=== PATIENT | female | born 1950 | race Caucasian/White ===

== ENCOUNTER 2017-12-04 07:39 | Day surgery (SDC) | payer OTHER ==
[~2017-12-04 07:39] MED LIST: ACET325 PO; ACET325S PO; ACET500 PO; AMOCLA875 PO; ARIP10; ARIP10 PO; ARIP15 PO; ARIP20 PO; ASPI325; ASPI81EC PO; BENZ.5; BENZ.5 PO; BENZ1 PO; Bactrim Ds Tab1 EACH PO; CALCA500CH PO; CEPH500 PO; CIPR500 PO; CLON.2 PO; CLON.5; CLON.5 PO; CLON1; CLON1 PO; CODACE30 PO; CONEST.625 PO; CYCL10 PO; DIPH50 PO; DULO30; DULO60; DULO60 PO; EFFEXOR 150 MG QD; ESCI10; ESCI10 PO; ESTMEDA; FERR325 PO; FERSU300; FLUD.1; GABA300 PO; GLIM2; HIBICLENS120 ML TOP; HYDACE5 PO; HYDPAM50; HYDR1TAB94 PO; IBUP200 PO; IBUP600 PO; IBUP800 PO; Keflex500 MG PO; LEVOTHYROXINE 25 MCG; LEVSOD125 PO; LEVSOD137 PO; LEVSOD150 PO; LEVSOD25; LEVSOD25 PO; LEVSOD50; LEVSOD50 PO; LEVSOD75; LEVSOD75 PO; LEVSOD88 PO; LIDOCAINE1 EACH TOP; LIOT25; LIOT25 PO; LORA10 PO; LORA10ER PO; LOXA10; LOXA10 PO; MECL25 PO; MEDR2.5; MEDR2.5 PO; MELO7.5 PO; METF500; METF500 PO; METF500C PO; MOM PO; MULVITMINE; MULVITMINE PO; MUPI2TO TOP; N-ACETYL-L-CYS600 MG PO; NAPR250 PO; NAPR500; NAPR500 PO; NAPR500EC PO; Naproxen250 MG PO; OFLO.3OPSO BOTHEYES; OLAN5 PO; OMEP20ER PO; OMEP40CA12 PO; OXCA300; OXYACE5C; PALI3TAB; PANT40 PO; PHENA200 PO; PIOG15; PRAZ1 PO; PRAZ2 PO; PRAZ5; PRAZ5 PO; PRED1SU BOTHEYES; PREN-16 PO; PRENZ PO; PROM25 PO; PROP30DR BOTHEYES; PROZOSIN; QUET100; QUET200; QUET200 PO; QUET25 PO; QUET300; QUET300 PO; SERT100 PO; SERT50 PO; SULTRIDS PO; Seroquel Xr300 MG PO; Seroquel Xr400 MG PO; TEMA15 PO; TOPI100; TOPI100 PO; TRAZ100 PO; TRAZ50 PO; VENL150ER; VENL150ER PO; VENL75; VENL75ER; VENL75ER PO; VICODIN 5-3001 EACH PO; ZIPR80; Zanaflex4 M1 PO; [UNRECOGNIZED DRUG - OTHER] PO
== END 2017-12-04 22:44 | disposition home or self-care (01) ==
LOC: MOI MAM 07:39
PROC: BH40ZZZ Ultrasonography of Right Breast (ICD-10-PCS; principal; 2017-12-04)
DX: N63.14 Unspecified lump in the right breast, lower inner quadrant (principal); R92.8 Other abnormal and inconclusive findings on diagnostic imaging of breast
CPT/HCPCS: 19285; 77065; G0279

== ENCOUNTER 2017-12-05 05:43 | Day surgery (SDC) | payer OTHER ==
[~2017-12-05] VITALS: Ht 160 cm; Wt 90.3 kg
[2017-12-12 13:28] LABS: Performing Lab SYMBIODX; Test Name TISSUE BLOCK
[2017-12-18 11:06] LABS: Result SEE PATHOTH RESULTS
== END 2017-12-05 10:10 | disposition home or self-care (01) ==
LOC: ORSCMMR 05:43 → ORD 07:30 → ORSCMMR 10:10
PROVIDERS: Surgery
PROC: 0HBT0ZX Excision of Right Breast, Open Approach, Diagnostic (ICD-10-PCS; principal; 2017-12-05 07:30)
DX: C50.311 Malignant neoplasm of lower-inner quadrant of right female breast (principal); Z17.0 Estrogen receptor positive status [ER+]; Z87.891 Personal history of nicotine dependence; E66.01 Morbid (severe) obesity due to excess calories; Z68.35 Body mass index [BMI] 35.0-35.9, adult; E03.9 Hypothyroidism, unspecified; F31.9 Bipolar disorder, unspecified; Z79.899 Other long term (current) drug therapy; Z79.82 Long term (current) use of aspirin; M48.10 Ankylosing hyperostosis [Forestier], site unspecified; F43.10 Post-traumatic stress disorder, unspecified
CPT/HCPCS: 76098; 88307; 88342; 88360; 88363; 88374; J0690; J2250; J2405; J3010; J7120

== ENCOUNTER 2018-12-29 07:30 | Inpatient (IN) | payer OTHER ==
[~2018-12-29] VITALS: Ht 162.6 cm; Wt 98.4 kg
[~2018-12-29 07:30] MED LIST changes: +ANASTROZOLE5 GM PO; +LIDOCAINE5 GM TOP; +PRENATAL PLUS1 EACH PO
--- NOTE | 2018-12-29 09:43 | NUR ---
Ambulatory in Day Surgery History, Chart, Medications and Allergies reviewed before start of procedure.Zayra Paws warming gown applied. Surgical site prepped with 2% Chlorhexidine cloth wipe. History, Chart, Medications and Allergies reviewed before start of procedure.Lungs clear T/O to Auscultation. Patient confirms NPO status and agrees with scheduled surgery. Patient reports completing Chlorhexadine shower X2 prior to admission to hospital. 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 NARES, THROAT, RECTUM, ARMPIT.
--- NOTE | 2018-12-29 16:08 | NUR ---
"PHYSICIAN EXECUTIVE | THIS RN ASSUMED CARE FROM LORNA RN GAVE REPORT TO STEPH CANADA RN. VSS. A/O. DENIES PAIN AND NAUSEA. NO ISSUES IN PACU. SITE REMAINS C/D/I. PATIENT TRANSFERRED ON 2L NC."
--- NOTE | 2018-12-29 17:27 | NUR ---
Permission to access Patient gave this student nurse permission to access chart.
--- NOTE | 2018-12-29 17:42 | NUR ---
SHIFT SUMMARY PT A&OX4, VSS, S/P L TSA, AQUACEL CDI, IMMOBILIZER ON, WIGGLES FINGERS. DENIES PAIN. N&V TX W/ZOFRAN AND REGLAN. FULL LIQ DIET ORDERED FOR PT DENTURES ARE AT HOME. AMB W/1 MOD ASSIST TO BRP AND CHAIR. VOIDING WELL. CAREGIVER MEJIA AT BEDSIDE. WILL CTM & TX PER EMAR UNTIL REPORT GIVEN TO ONCOMING NOC RN.
[2018-12-30 05:36] LABS: BASOPHILS ABSOLUTE AUTO 0.01 K/mm3 (0.00-0.23); BASOPHILS PERCENT AUTO 0 % (0-2); EOSINOPHILS PERCENT AUTO 0 % (0-6); Hematocrit 33.4 % (33.0-51.0); Hemoglobin 10.8 g/dL (11.5-16.0); IMMATURE GRAN ABSOLUTE AUTO 0.06 K/mm3 (0.00-0.10); IMMATURE GRAN PERCENT AUTO 0 % (0-1); LYMPHOCYTES ABSOLUTE AUTO 0.73 K/mm3 (0.84-5.20); LYMPHOCYTES PERCENT AUTO 5 % (21-46); MONOCYTES ABSOLUTE AUTO 0.81 K/mm3 (0.16-1.47); MONOCYTES PERCENT AUTO 5 % (4-13); Mean Corpuscular HGB 29.1 pg (26.0-34.0); Mean Corpuscular HGB Conc 32.3 g/dL (31.5-36.5); Mean Corpuscular Volume 90 fL (80-100); Mean Platelet Volume 10.2 fL (9.1-12.4); NEUTROPHILS ABSOLUTE AUTO 13.81 K/mm3 (1.96-9.15); NEUTROPHILS PERCENT AUTO 90 % (41-73); Platelet Count 187 K/mm3 (150-400); RDW Coefficient Variation 14.8 % (11.7-14.2); RDW Standard Deviation 48.7 fL (35.1-46.3); Red Blood Cell Count 3.71 M/mm3 (3.80-5.20); White Blood Cell Count 15.42 K/mm3 (4.00-11.30)
[2018-12-30 06:02] LABS: Anion Gap 8 mmol/L (6-16); Blood Urea Nitrogen 23 mg/dL (8-24); Bun/Creatinine Ratio 24.1 (12.0-20.0); CO2, Blood 25 mmol/L (21-32); Calcium, Blood 8.2 mg/dL (8.5-10.1); Chloride, Blood 110 mmol/L (98-108); Creatinine, Blood 0.95 mg/dL (0.40-1.00); Glomerular Filtration Rate >60 (60-); Glucose, Blood 127 mg/dL (70-99); Magnesium, Blood 2.1 mg/dL (1.6-2.4); Potassium, Blood 4.5 mmol/L (3.5-5.5); Sodium, Blood 143 mmol/L (136-145)
--- NOTE | 2018-12-30 07:18 | NUR ---
SUMMARY PT HAS DONE WELL THROUGH THE NIGHT. PAIN MANAGED WITH TYLENOL. PT IS TOLERATING PO INTAKE. VOIDING WNL. DRSG REMAINS C/D/I. SLING IN PLACE. PT HAS NOT SLEPT WELL AND IS ANXIOUS ABOUT BEING IN A DIFFERENT PLACE BUT STATES SHE IS COMFORTABLE. CALL LIGHT IN REACH, PT CALLS FOR ASSISTANCE APPROPRIATLEY. REPORT GIVEN TO DAY RN.
[2018-12-30] MEDS ORDERED: OXYC5 PO (11:02)
--- NOTE | 2018-12-30 13:04 | NUR ---
SHIFT SUMMARY PT A&OX4, VSS, LEFT FLOOR VIA WC WITH LOSS PREVENTION ANALYST TO GO HOME WITH CAREGIVER, WITH ALL PERSONAL POSSESSIONS, DISCHARGE PACKET, 2 AQUACEL DRESSINGS, 1 NARC SCRIPT. DISCHARGE INSTRUCTIONS PROVIDED. PT AND CAREGIVER REPORTED UNDERSTANDING THOSE INSTRUCTIONS INCLUDING DRESSING CHANGES, FU APPT WITH SURGEON, OK TO SHOWER/NO TUB/JACUZZI, PAIN MED MANAGEMENT.
== END 2018-12-30 13:00 | disposition home or self-care (01) | DRG 483 ==
LOC: SURS 07:41 → PRE IP 10:30 → SURS 13:05
PROVIDERS: ADMIT Orthopaedic Surgery
PROC: 0RRK0JZ Replacement of Left Shoulder Joint with Synthetic Substitute, Open Approach (ICD-10-PCS; principal; 2018-12-29 10:30)
DX: M19.012 Primary osteoarthritis, left shoulder (principal); Z88.8 Allergy status to other drugs, medicaments and biological substances
CPT/HCPCS: 36415; 73030; 80048; 83735; 85025; 87081; 87086; 88300; 97110; 97116; 97162; 97165; 97535; C1713; C1776; J0171; J0690; J0735; J1100; J1885; J2405; J2550; J2765; J2795; J3010; J7120

== ENCOUNTER 2019-03-21 18:39 | Emergency (ER) | payer OTHER ==
[~2019-03-21] VITALS: Ht 160 cm; Wt 90.7 kg
[~2019-03-21 18:39] MED LIST changes: +OXYC5 PO
== END 2019-03-21 21:56 | disposition home or self-care (01) ==
LOC: ER 18:39
DX: H72.91 Unspecified perforation of tympanic membrane, right ear (principal); Z88.8 Allergy status to other drugs, medicaments and biological substances; Z79.899 Other long term (current) drug therapy; Z79.82 Long term (current) use of aspirin; E11.9 Type 2 diabetes mellitus without complications; I10 Essential (primary) hypertension; Z87.891 Personal history of nicotine dependence
CPT/HCPCS: 70450; 99283-25

== ENCOUNTER 2019-04-07 15:43 | Observation (INO) | payer OTHER ==
[~2019-04-07] VITALS: Ht 167.6 cm; Wt 95.2 kg
[~2019-04-07 15:43] MED LIST changes: +ANASTROZOLE PO; -ANASTROZOLE5 GM PO; +Aspirin EC81 MG PO; +GABA400 PO; -N-ACETYL-L-CYS600 MG PO; +NAC600 MG PO; +Prenatal Vitam1 EAC2 PO
[2019-04-07 17:01] LABS: Source, Urine Clean Catch
[2019-04-07 17:13] LABS: Appearance, Urine Clear (Clear); Bilirubin, Urine Neg (Neg); Blood, Urine 4+ (Neg); Color, Urine Yellow (P-Yellow); Glucose Qualitative, Urine Neg (Neg); Ketones, Urine Neg (Neg); Leukocyte Esterase, Urine 1+ (Neg); Nitrite, Urine Neg (Neg); Protein, Urine Neg (Neg); Specific Gravity, Urine 1.015 (1.003-1.022); Urobilinogen, Urine NORM (Normal)
[2019-04-07 17:26] LABS: Bacteria Mod /hpf; Red Blood Cells, Urine 0-2 /hpf (0-2); Squamous Epithelial Cells Rare /hpf (Few); White Blood Cells, Urine 0-2 /hpf (0-5)
[2019-04-07 18:07] LABS: U Amphetamine Screen Not Detected; U Barbituate Screen Not Detected; U Benzodiazapine Screen Not Detected; U Buprenorphine Screen Not Detected; U Cannabinoids Screen Not Detected; U Cocaine Screen Not Detected; U Methadone Screen Not Detected; U Methamphetamine Screen Not Detected; U Opiates Screen Not Detected; U Oxycodone Screen Not Detected; U Phencyclidine Screen Not Detected; U Propoxyphene Screen Not Detected
[2019-04-07 18:37] LABS: BASOPHILS ABSOLUTE AUTO 0.05 K/mm3 (0.00-0.23); BASOPHILS PERCENT AUTO 1 % (0-2); EOSINOPHILS ABSOLUTE AUTO 0.05 K/mm3 (0.00-0.68); EOSINOPHILS PERCENT AUTO 1 % (0-6); Hematocrit 39.8 % (33.0-51.0); Hemoglobin 12.5 g/dL (11.5-16.0); IMMATURE GRAN ABSOLUTE AUTO 0.03 K/mm3 (0.00-0.10); IMMATURE GRAN PERCENT AUTO 0 % (0-1); LYMPHOCYTES ABSOLUTE AUTO 1.43 K/mm3 (0.84-5.20); LYMPHOCYTES PERCENT AUTO 18 % (21-46); MONOCYTES ABSOLUTE AUTO 0.44 K/mm3 (0.16-1.47); MONOCYTES PERCENT AUTO 5 % (4-13); Mean Corpuscular HGB Conc 31.4 g/dL (31.5-36.5); Mean Corpuscular Volume 89 fL (80-100); Mean Platelet Volume 10.1 fL (9.1-12.4); NEUTROPHILS ABSOLUTE AUTO 6.19 K/mm3 (1.96-9.15); NEUTROPHILS PERCENT AUTO 76 % (41-73); Platelet Count 209 K/mm3 (150-400); RDW Coefficient Variation 13.9 % (11.7-14.2); RDW Standard Deviation 45.1 fL (35.1-46.3); Red Blood Cell Count 4.46 M/mm3 (3.80-5.20); White Blood Cell Count 8.19 K/mm3 (4.00-11.30)
[2019-04-07 19:00] LABS: Alanine Aminotransfer (ALT/SGP 24 U/L (12-78); Albumin/Globulin Ratio 1.1 (0.8-1.8); Alk Phos 133 U/L (50-136); Anion Gap 6 mmol/L (6-16); Aspartate Aminotrans (AST/SGOT 19 U/L (12-37); Bilirubin, Total 0.3 mg/dL (0.1-1.0); Blood Urea Nitrogen 22 mg/dL (8-24); Bun/Creatinine Ratio 22.5 (12.0-20.0); CO2, Blood 26 mmol/L (21-32); Chloride, Blood 108 mmol/L (98-108); Creatinine, Blood 0.98 mg/dL (0.40-1.00); Globulin, Blood 3.7 g/dL (2.2-4.0); Glomerular Filtration Rate >60 (60-); Glucose, Blood 103 mg/dL (70-99); Potassium, Blood 3.8 mmol/L (3.5-5.5); Salicylate <1.7 mg/dL (2.8-20.0); Sodium, Blood 140 mmol/L (136-145); Total Protein, Blood 7.7 g/dL (6.4-8.2)
[2019-04-07 19:02] LABS: Acetaminophen, Random <2.0 ug/mL (10.0-30.0)
--- NOTE | 2019-04-08 19:45 | NUR ---
ADMIT NOTE. PT ARRIVED TO ROOM AT ABOUT 1815. VITAL SIGNS MEASURED, STABLE. PT STATES THAT SHE IS ANXIOUS. ADMIT PROCESS COULD NOT BE COMPLETED DUE TO PT POOR HISTORIAN. SHE STATES THAT WE NEED TO CALL HER CAREGIVER WITH QUESTIONS. ROOM ASSESSED AND SAFE FOR SI PATIENT. [place] BERNAL VERIFIED MONIOR BEING TURNED ON. PT SITTING UP TO CHAIR. REPORT GIVEN TO HARBOR MASTER NURSE WHO WILL ASSUME CARE AT THIS TIME
--- NOTE | 2019-04-09 04:35 | NUR ---
SHIFT SUMMARY PT TO JUST PRIOR TO START OF BREAKFAST SUPERVISOR; AWAKE AND SITTING IN A CHAIR AT , DURING SHIFT REPORT. PT ADMITTED FOR SI ON 2 MD HOLD. PT HAS BEEN VERY PLEASANT AND CO-OP. REQUESTED SHOWER AT START OF SHIFT, BEFORE SHE WOULD GET INTO BED. DEVELOPMENTALLY DELAYED AND MORBIDLY OBESE WITH C/O PAIN IN R KNEE. REQUESTED BLINDS BE KEPT CLOSED D/T FEAR OF HEIGHTS AND BEING ON THE 3RD FLOOR. CAREGIVER NOTIFIED TO ASSIST WITH ADMISSION DATA, PT VERBALIZED AUTHORIZATION AND SIGNED CONSENT. PT C/O PAIN TO R KNEE EARLY INTO SHIFT; MEDICATED PER EMAR. ALSO C/O NOT BEING ABLE TO SLEEP, EVEN AFTER HS MEDICATION GIVEN. PT SLEPT FOR A WHILE AND THEN SAT UP IN CHAIR A WHILE WITH TV ON. PT PRESENTLY IN BED, RESTING QUIETLY. CALLS FOR ASSIST TO BTHRM. WAITING FOR INPATIENT PSYCH PLACEMENT. WILL MONITOR.
[2019-04-09 06:18] LABS: BASOPHILS ABSOLUTE AUTO 0.04 K/mm3 (0.00-0.23); BASOPHILS PERCENT AUTO 1 % (0-2); EOSINOPHILS ABSOLUTE AUTO 0.14 K/mm3 (0.00-0.68); EOSINOPHILS PERCENT AUTO 2 % (0-6); Hematocrit 38.8 % (33.0-51.0); Hemoglobin 12.3 g/dL (11.5-16.0); IMMATURE GRAN ABSOLUTE AUTO 0.03 K/mm3 (0.00-0.10); IMMATURE GRAN PERCENT AUTO 1 % (0-1); LYMPHOCYTES ABSOLUTE AUTO 1.66 K/mm3 (0.84-5.20); LYMPHOCYTES PERCENT AUTO 27 % (21-46); MONOCYTES ABSOLUTE AUTO 0.51 K/mm3 (0.16-1.47); MONOCYTES PERCENT AUTO 8 % (4-13); Mean Corpuscular HGB 28.2 pg (26.0-34.0); Mean Corpuscular HGB Conc 31.7 g/dL (31.5-36.5); Mean Corpuscular Volume 89 fL (80-100); Mean Platelet Volume 10.5 fL (9.1-12.4); NEUTROPHILS ABSOLUTE AUTO 3.88 K/mm3 (1.96-9.15); NEUTROPHILS PERCENT AUTO 62 % (41-73); Platelet Count 199 K/mm3 (150-400); RDW Coefficient Variation 13.9 % (11.7-14.2); RDW Standard Deviation 45.5 fL (35.1-46.3); Red Blood Cell Count 4.36 M/mm3 (3.80-5.20); White Blood Cell Count 6.26 K/mm3 (4.00-11.30)
--- NOTE | 2019-04-09 18:55 | NUR ---
NO ACUTE CHANGES NOTED THIS SHIFT. PT HAS BEEL PLEASANT AND COOPERATIVE, POSSIBLE DISCHARGE TOMORROW TO INPATIENT PSYCH FACILITY. WILL CONTINUE TO MONITOR AND REPORT TO ONCOMING RN.
--- NOTE | 2019-04-10 04:09 | NUR ---
Shift summary: Pt sleep most of night but awoke at three saying she had just had a bad nightmare. pt up to void x 2 during night. pt just needs standby assist. Pt next door was upsetting her but was ok after that pt left. Oxycodone gives adequate pain relief for right knee pain. NO s/s suicidal ideations but pt is depressed.
[2019-04-10 05:29] LABS: BASOPHILS ABSOLUTE AUTO 0.03 K/mm3 (0.00-0.23); BASOPHILS PERCENT AUTO 1 % (0-2); EOSINOPHILS ABSOLUTE AUTO 0.11 K/mm3 (0.00-0.68); EOSINOPHILS PERCENT AUTO 3 % (0-6); Hematocrit 37.5 % (33.0-51.0); Hemoglobin 11.8 g/dL (11.5-16.0); IMMATURE GRAN ABSOLUTE AUTO 0.01 K/mm3 (0.00-0.10); IMMATURE GRAN PERCENT AUTO 0 % (0-1); LYMPHOCYTES ABSOLUTE AUTO 1.46 K/mm3 (0.84-5.20); LYMPHOCYTES PERCENT AUTO 34 % (21-46); MONOCYTES ABSOLUTE AUTO 0.34 K/mm3 (0.16-1.47); MONOCYTES PERCENT AUTO 8 % (4-13); Mean Corpuscular HGB 28.5 pg (26.0-34.0); Mean Corpuscular HGB Conc 31.5 g/dL (31.5-36.5); Mean Corpuscular Volume 91 fL (80-100); Mean Platelet Volume 10.2 fL (9.1-12.4); NEUTROPHILS ABSOLUTE AUTO 2.37 K/mm3 (1.96-9.15); NEUTROPHILS PERCENT AUTO 55 % (41-73); Platelet Count 178 K/mm3 (150-400); RDW Coefficient Variation 13.8 % (11.7-14.2); RDW Standard Deviation 45.8 fL (35.1-46.3); Red Blood Cell Count 4.14 M/mm3 (3.80-5.20); White Blood Cell Count 4.32 K/mm3 (4.00-11.30)
[2019-04-10 05:51] LABS: Bun/Creatinine Ratio 19.7 (12.0-20.0); Calcium, Blood 8.7 mg/dL (8.5-10.1); Creatinine, Blood 1.22 mg/dL (0.40-1.00); Potassium, Blood 3.8 mmol/L (3.5-5.5)
--- NOTE | 2019-04-10 15:39 | NUR ---
spoke with regi wayne and patient will be using secure transport to [facility] for inpatient psych facility. patient is aware and willing. she does note that she is nervous but willing to go. she has been pleasant today but notes that she doesn't know how she will feel in a few hours. secure transport is set up for 1600. patients iv is removed. awaiting call from [place] with nurse for nurse to nurse report.
--- NOTE | 2019-04-10 16:22 | NUR ---
CALLED [facility] TO GIVE NURSE TO NURSE REPORT. I WAS POLITELY TOLD THAT THERE WOULD BE A NURSE CALLING TO GET REPORT AT THEIR CONVENIENCE. I HAVE EXPRESSED THAT I LEAVE IN THE 1900 HOUR AND WAS LET KNOW THAT THEY WOULD CALL SOON POSSIBLE. WILL CALL ONE MORE TIME IN THE 1700 HOUR TO EXPLAIN THAT I WOULD LIKE TO GIVE MY NURSE TO NURSE REPORT. AT THAT POINT I WILL CONTINUE TO DOCUMENT.
--- NOTE | 2019-04-10 18:23 | NUR ---
SPOKE WITH PATRICIA ARZOLA AT [facility]. GAVE NURSE TO NURSE REPORT NO ACUTE COCNERNS AT THIS TIME. ALL REPORT GIVEN AND MEDICATION LIST AND TIMES FAXED TO THE NURSES OVER AT [facility].
== END 2019-04-10 16:04 ==
LOC: ER 15:43 → EOR 15:44 → ER 15:44 → EOR 15:44 → MEDS 15:46 → ER 04-08 15:44 → MEDS 04-08 18:00
PROVIDERS: Family Medicine; Physician Assistant; ADMIT Emergency Medicine
DX: F33.2 Major depressive disorder, recurrent severe without psychotic features (principal); N39.0 Urinary tract infection, site not specified; F20.9 Schizophrenia, unspecified; E03.9 Hypothyroidism, unspecified; I10 Essential (primary) hypertension; M17.0 Bilateral primary osteoarthritis of knee; M19.012 Primary osteoarthritis, left shoulder; M19.011 Primary osteoarthritis, right shoulder; E66.9 Obesity, unspecified; Z87.891 Personal history of nicotine dependence; Z88.8 Allergy status to other drugs, medicaments and biological substances; Z79.899 Other long term (current) drug therapy; Z79.82 Long term (current) use of aspirin; Z86.19 Personal history of other infectious and parasitic diseases; Z85.3 Personal history of malignant neoplasm of breast; Z68.33 Body mass index [BMI] 33.0-33.9, adult
CPT/HCPCS: 36415; 73560-RT; 80048; 80053; 81001; 84443; 85025; 87077; 87081; 87086; 87186; 99285-25; G0378; G0480; J1650; Q0163; Q3014

== ENCOUNTER → 2020-12-06 | Outpatient (CLI) | payer OTHER ==
[2020-12-06 15:22] LABS: Source, Urine Clean Catch
[2020-12-06 16:14] LABS: Appearance, Urine Clear (Clear); Bilirubin, Urine Neg (Neg); Blood, Urine 2+ (Neg); Color, Urine Yellow (P-Yellow); Glucose Qualitative, Urine Neg (Neg); Ketones, Urine Neg (Neg); Leukocyte Esterase, Urine Neg (Neg); Nitrite, Urine Neg (Neg); Protein, Urine Neg (Neg); Specific Gravity, Urine 1.005 (1.003-1.022); Urobilinogen, Urine NORM (Normal); pH, Urine 6.5 (5.0-8.0)
[2020-12-06 16:32] LABS: Bacteria Rare /hpf; Squamous Epithelial Cells Few /hpf (Few)
== END | disposition home or self-care (01) ==
LOC: LAB 15:15 → LAB SHORT 15:15
PROVIDERS: Nurse Practitioner Family
DX: R31.29 Other microscopic hematuria (principal)
CPT/HCPCS: 81001

== ENCOUNTER 2021-12-08 14:21 | Inpatient (IN) | payer OTHER ==
[~2021-12-08] VITALS: Ht 167.6 cm; Wt 99.5 kg
[~2021-12-08 14:21] MED LIST changes: -ANASTROZOLE PO; -GABA400 PO; -LEVSOD150 PO; -Seroquel Xr300 MG PO; -Zanaflex4 M1 PO
[2021-12-08 16:18] LABS: BASOPHILS ABSOLUTE AUTO 0.01 K/mm3 (0.00-0.23); BASOPHILS PERCENT AUTO 0 % (0-2); EOSINOPHILS PERCENT AUTO 0 % (0-6); Hematocrit 38.6 % (33.0-51.0); Hemoglobin 12.5 g/dL (11.5-16.0); IMMATURE GRAN ABSOLUTE AUTO 0.05 K/mm3 (0.00-0.10); IMMATURE GRAN PERCENT AUTO 1 % (0-1); LYMPHOCYTES PERCENT AUTO 10 % (21-46); MONOCYTES ABSOLUTE AUTO 0.38 K/mm3 (0.16-1.47); MONOCYTES PERCENT AUTO 5 % (4-13); Mean Corpuscular HGB Conc 32.4 g/dL (31.5-36.5); Mean Corpuscular Volume 90 fL (80-100); Mean Platelet Volume 10.1 fL (9.1-12.4); NEUTROPHILS ABSOLUTE AUTO 5.97 K/mm3 (1.96-9.15); NEUTROPHILS PERCENT AUTO 84 % (41-73); Platelet Count 170 K/mm3 (150-400); RDW Coefficient Variation 14.6 % (11.7-14.2); RDW Standard Deviation 48.4 fL (35.1-46.3); Red Blood Cell Count 4.31 M/mm3 (3.80-5.20); White Blood Cell Count 7.11 K/mm3 (4.00-11.30)
[2021-12-08 16:32] LABS: Alanine Aminotransfer (ALT/SGP 214 U/L (12-78); Albumin, Blood 3.4 g/dL (3.4-5.0); Albumin/Globulin Ratio 0.9 (0.8-1.8); Alk Phos 130 U/L (50-136); Anion Gap 4 mmol/L (6-16); Aspartate Aminotrans (AST/SGOT 259 U/L (12-37); Bilirubin, Total 0.3 mg/dL (0.1-1.0); Blood Urea Nitrogen 43 mg/dL (8-24); Bun/Creatinine Ratio 24.4 (12.0-20.0); CO2, Blood 22 mmol/L (21-32); Calcium, Blood 8.4 mg/dL (8.5-10.1); Chloride, Blood 110 mmol/L (98-108); Creatinine, Blood 1.76 mg/dL (0.40-1.00); Globulin, Blood 3.9 g/dL (2.2-4.0); Glomerular Filtration Rate 29 (60-); Glucose, Blood 128 mg/dL (70-99); Potassium, Blood 4.7 mmol/L (3.5-5.5); Sodium, Blood 136 mmol/L (136-145); Total Protein, Blood 7.3 g/dL (6.4-8.2); Troponin I <0.015 ng/mL (0.000-0.040)
[2021-12-08] MEDS ORDERED: VITAMIN D3-ALO1 EACH PO (16:35)
[2021-12-08] MEDS ORDERED: ASCO500 PO (16:35)
[2021-12-08] MEDS ORDERED: ACET325 PO (16:36)
[2021-12-08 18:52] LABS: PCO2 Arterial 23.8 mmHg (35-45); pH Blood Arterial 7.48 (7.35-7.45)
[2021-12-09] MEDS ORDERED: VITAMIN D31000 UNI1 PO (01:10)
[2021-12-09] MEDS ORDERED: Calcium Carbon500 MG PO (01:11)
--- NOTE | 2021-12-09 01:28 | NUR ---
ASSUMED CARE OF PT AT 2143 AN ADMIT FROM THE ED. ROMINA (CAREGIVER, PROXY) AT BEDSIDE. REPORTS NO PAIN, CP/PRESSURE. A/OX2-3 BUT DEFICITS SEEM TO BE FROM DROWSINESS ACCORDING TO CAREGIVER. MAINTAINS ABOVE 92% ON 9L NC, HOWEVER DESATS TO LOW 80'S WITH ACTIVITY AND REQUIRES 14L TO RECOVER. RECOVERS WITHIN 3 MINUTES AND ABLE TO BE TITRATED BACK TO 9L. LS DIM T/O. REDDENED AREA UNDER LEFT PANUS IN INGUINAL AREA. WILL UPDATE CHANGES OCCUR.
[2021-12-09 03:49] LABS: BASOPHILS ABSOLUTE AUTO 0.01 K/mm3 (0.00-0.23); BASOPHILS PERCENT AUTO 0 % (0-2); EOSINOPHILS PERCENT AUTO 0 % (0-6); Hematocrit 35.1 % (33.0-51.0); Hemoglobin 11.4 g/dL (11.5-16.0); IMMATURE GRAN ABSOLUTE AUTO 0.06 K/mm3 (0.00-0.10); IMMATURE GRAN PERCENT AUTO 1 % (0-1); LYMPHOCYTES PERCENT AUTO 6 % (21-46); MONOCYTES ABSOLUTE AUTO 0.27 K/mm3 (0.16-1.47); MONOCYTES PERCENT AUTO 4 % (4-13); Mean Corpuscular HGB 28.9 pg (26.0-34.0); Mean Corpuscular HGB Conc 32.5 g/dL (31.5-36.5); Mean Corpuscular Volume 89 fL (80-100); Mean Platelet Volume 10.1 fL (9.1-12.4); NEUTROPHILS ABSOLUTE AUTO 6.56 K/mm3 (1.96-9.15); NEUTROPHILS PERCENT AUTO 90 % (41-73); Platelet Count 160 K/mm3 (150-400); RDW Coefficient Variation 14.5 % (11.7-14.2); Red Blood Cell Count 3.95 M/mm3 (3.80-5.20)
[2021-12-09 04:05] LABS: Bun/Creatinine Ratio 31.1 (12.0-20.0); Calcium, Blood 8.3 mg/dL (8.5-10.1); Creatinine, Blood 1.19 mg/dL (0.40-1.00); Potassium, Blood 4.8 mmol/L (3.5-5.5)
--- NOTE | 2021-12-09 22:56 | NUR ---
ASSUMED CARE OF PATIENT AT 1900. REPORTS NO PAIN, CP/PRESSURE. DOES HAVE SOB WITH COUGHING EPISODES. NONPRODUCTIVE. ALERT TO SELF, KNOWS THE NAME OF HER FOOT DOCTOR AND DEANNA'S GIRLFRIEND (JUAN). ACCORDING TO CAREGIVER, THIS IS A MORE ACCURATE WAY OF TELLING HER A/O STATUS PATIENT IS DISCOURAGED FROM WATCHING THE NEWS ETC... I FEEL SHE IS A BIT MORE CONFUSED TODAY THAN LAST NIGHT. PUPILS R4 L2 SLUGGISH. OTHER NEUROS INTACT. MAINTAINS ABOVE 92% ON 12L NC. LS DIM T/O. NONPRODUCTIVE COUGH. SR ON TELE 80'S. BLE 1+ PITTING EDEMA. WILL UPDATE CHANGES OCCUR.
[2021-12-10 03:11] LABS: Source, Urine Catheter
[2021-12-10 03:15] LABS: Bilirubin, Urine Neg (Neg); Blood, Urine 4+ (Neg); Glucose Qualitative, Urine Neg (Neg); Ketones, Urine Neg (Neg); Leukocyte Esterase, Urine Neg (Neg); Nitrite, Urine Neg (Neg); Protein, Urine 3+ (Neg); Urobilinogen, Urine NORM (Normal)
[2021-12-10 03:23] LABS: Amorphous Light (0-Heavy); Appearance, Urine Hazy (Clear); Bacteria Many /hpf; Color, Urine Yellow (P-Yellow); Red Blood Cells, Urine 0-2 /hpf (0-2); Squamous Epithelial Cells Not Seen /hpf (Few); White Blood Cells, Urine 0-2 /hpf (0-5)
[2021-12-10 04:30] LABS: BASOPHILS ABSOLUTE AUTO 0.01 K/mm3 (0.00-0.23); BASOPHILS PERCENT AUTO 0 % (0-2); EOSINOPHILS PERCENT AUTO 0 % (0-6); Hematocrit 36.4 % (33.0-51.0); Hemoglobin 11.8 g/dL (11.5-16.0); IMMATURE GRAN ABSOLUTE AUTO 0.09 K/mm3 (0.00-0.10); IMMATURE GRAN PERCENT AUTO 1 % (0-1); LYMPHOCYTES ABSOLUTE AUTO 0.63 K/mm3 (0.84-5.20); LYMPHOCYTES PERCENT AUTO 9 % (21-46); MONOCYTES ABSOLUTE AUTO 0.38 K/mm3 (0.16-1.47); MONOCYTES PERCENT AUTO 6 % (4-13); Mean Corpuscular HGB 28.7 pg (26.0-34.0); Mean Corpuscular HGB Conc 32.4 g/dL (31.5-36.5); Mean Corpuscular Volume 89 fL (80-100); Mean Platelet Volume 9.7 fL (9.1-12.4); NEUTROPHILS ABSOLUTE AUTO 5.67 K/mm3 (1.96-9.15); NEUTROPHILS PERCENT AUTO 84 % (41-73); Platelet Count 201 K/mm3 (150-400); RDW Coefficient Variation 14.6 % (11.7-14.2); RDW Standard Deviation 46.9 fL (35.1-46.3); Red Blood Cell Count 4.11 M/mm3 (3.80-5.20); White Blood Cell Count 6.78 K/mm3 (4.00-11.30)
[2021-12-10 04:46] LABS: Alanine Aminotransfer (ALT/SGP 151 U/L (12-78); Albumin, Blood 2.6 g/dL (3.4-5.0); Albumin/Globulin Ratio 0.7 (0.8-1.8); Alk Phos 122 U/L (50-136); Anion Gap 6 mmol/L (6-16); Aspartate Aminotrans (AST/SGOT 161 U/L (12-37); Bilirubin, Total 0.4 mg/dL (0.1-1.0); Blood Urea Nitrogen 36 mg/dL (8-24); Bun/Creatinine Ratio 40.9 (12.0-20.0); CO2, Blood 21 mmol/L (21-32); Calcium, Blood 8.9 mg/dL (8.5-10.1); Chloride, Blood 118 mmol/L (98-108); Creatinine, Blood 0.88 mg/dL (0.40-1.00); Globulin, Blood 3.9 g/dL (2.2-4.0); Glomerular Filtration Rate >60 (60-); Glucose, Blood 188 mg/dL (70-99); Potassium, Blood 4.6 mmol/L (3.5-5.5); Sodium, Blood 145 mmol/L (136-145); Total Protein, Blood 6.5 g/dL (6.4-8.2)
[2021-12-10 12:28] LABS: Influenza A, PCR NEGATIVE (NEGATIVE); Influenza B, PCR NEGATIVE (NEGATIVE); Resp Syncytial Virus, PCR NEGATIVE (NEGATIVE)
[2021-12-10 12:30] LABS: SARS-Cov-2 (COVID-19) PCR, MMC POSITIVE (NEGATIVE)
--- NOTE | 2021-12-10 22:25 | NUR ---
ASSUMED CARE OF PATIENT AT 1900. REPORTS NO PAIN, CP/PRESSURE. NONPRODUCTIVE COUGH. ALERT TO SELF, DOES NOT KNOW THE NAME OF HER FOOT DOCTOR OR DEANNA'S GIRLFRIEND (JUAN) ANYMORE, WHICH IS NEW FROM PREVIOUS NOC SHIFT. PUPILS R4 SLUG L2 GREGOR. OTHER NEUROS INTACT. MAINTAINS ABOVE 89% ON 55L AND 85% AIRVO. LS DIM T/O. NONPRODUCTIVE COUGH. SR ON TELE 70'S. BLE 1+ PITTING EDEMA. AMOR DRAINING TO GRAVITY ODOROUS DARK YELLOW URINE. WILL UPDATE CHANGES OCCUR.
[2021-12-11 12:21] LABS: Source, Urine Foley catheter
[2021-12-11 12:34] LABS: Appearance, Urine Hazy (Clear); Bilirubin, Urine Neg (Neg); Blood, Urine 4+ (Neg); Color, Urine Yellow (P-Yellow); Glucose Qualitative, Urine Neg (Neg); Ketones, Urine Neg (Neg); Leukocyte Esterase, Urine 2+ (Neg); Nitrite, Urine Pos (Neg); Protein, Urine 3+ (Neg); Specific Gravity, Urine 1.015 (1.003-1.022); Urobilinogen, Urine NORM (Normal)
[2021-12-11 12:54] LABS: Squamous Epithelial Cells Few /hpf (Few)
[2021-12-11 12:55] LABS: Amorphous Light (0-Heavy); Bacteria Many /hpf; Mucus Light (0-Heavy); WBC Cast 0-2 /lpf (0)
--- NOTE | 2021-12-11 14:04 | NUR ---
PATIENT ALERT TO SELF. ABLE TO TELL ME NAME, BIRTHDATE, WHERE SHE IS, WHERE SHE LIVES AND CAREGIVERS NAME. ABLE TO MOVE ALL EXTREMITIES. DENIES NUMBNESS/TINGLING. RIGHT PUPILS SLUGGISH COMPARED TO LEFT. TELE SHOWING SINUS RHYTHM WITH HR 80'S. DENIES CHEST PAIN/PRESSURE. VITAL SIGNS STABLE. ON AIRVO AT 60L AND 75%. LUNGS SOUNDING CLEAR AND DIM. OCCASIONAL DRY COUGH, PRN COUGH MEDICATION. DESATING WITH ACTIVITY AND EATING. LAYING ON SIDES SWITCHING FROM LEFT TO RIGHT EVERY 2 HOURS. DENIES ABDOMINAL PAIN/NAUSEA. AMOR CATH IN PLACE DRAINING CLEAR/YELLOW URINE TO GRAVITY. NEW URINE SAMPLE OBTAINED. DR. CUNHA NOTIFIED OF URINE RESULTS WELL +BLOOD CULTURE. NEW ORDER FOR OMNICEF ANTIBOTIC. SPOKE WITH CAREGIVER ROMINA ON PHONE AND PROVIDED UPDATE. PATIENT STATES SHE IS NOT HUNGRY. EATING 2-3 BITES FOR LUNCH, BUT DRINKING FLUIDS. SLEEPING ON AND OFF. DENIES OVERALL PAIN. CALL LIGHT IN REACH. ACHS BLOOD SUGARS. WILL CONTINUE TO MONITOR.
--- NOTE | 2021-12-11 18:15 | NUR ---
SHIFT SUMMARY: NEURO REMAINS UNCHANGED. ON AIRVO AT 60L AND 75% SATING LOW-MID 90'S. DESATS WITH MOVEMENT. TELE REMAINS UNCHANGED SINUS RHYTHM. BP STABLE. LOW APPETITE. EATING VERY SMALL AMOUNTS. DRINKING FLUIDS. DENIES ABDOMINAL PAIN/NAUSEA. AMOR CATH REMAINS IN PLACE DRAINING URINE. UP IN RECLINER AT THIS TIME. 1 PERSON ASSIST. DENIES NEEDS AT THIS TIME. CALL LIGHT IN REACH. WILL CONTINUE TO MONITOR AND REPORT OFF.
--- NOTE | 2021-12-12 05:54 | NUR ---
NEEDLE POLISHER SUMMARY PT IS AXO 2-3 AND FOLLOWS DIRECTIONS. PT MAINTAINED O2 SATS >90% ON AIRVO 55L AND 60% FIO2 FOR MOST OF THE SHIFT. PT WAS UNWILLING TO PRONE THIS SHIFT BUT DID SLEEP ON HER SIDES AND TURNED THROUGHOUT THE SHIFT. PT HAS DRY HACKING COUGH. TREATED PER EMAR. PT DENYING ANY PAIN OR NAUSEA THIS SHIFT. PT SLEPT COMFORTABLY FOR MOST OF THE SHIFT. WILL REPORT TO ONCOMING RN.
--- NOTE | 2021-12-12 08:00 | NUR ---
Initial assessment: Patient is resting with eyes closed resp e/u, easily awakens with verbal stimuli. She is oriented to self and location only. She denies pain at this time. HRR, SR in the 80s. LS Dim t/o. Biox 88% on 50l fio2 65%, FIO2 increased to 70%, oxygen saturations increased to 90%. BT+. PPP, trace edema to BLE. Patient denies other needs at this time. Call light in reach, am meds given at this time. Will continue to monitor.
--- NOTE | 2021-12-12 12:00 | NUR ---
Update: VSS. Patients assessment unchnaged. Patient has still been requiring high flow oxygen 55l at 74% FIO2. She denies needs at this time. Call light in reach, will continue to monitor.
--- NOTE | 2021-12-12 16:00 | NUR ---
Update: Patient is OOB to the chair. Her caregiver was here earlier and has been given an update. VSS. Patient denies other needs at this time. Call light in reach, will continue to monitor.
--- NOTE | 2021-12-12 18:40 | NUR ---
Update: Patient is admitted with COVID pneumonia. She has been oriented to self only t/o the day. She has been a little bit forgetful today and pulling her oxygen out of her nose, camera turned back on because her saturations drop down into the 70s. She has been on the AIRVO 55L between 60-70% oxygen saturations 87-93. She has an occasional cough. She was able to get OOB to the recliner today and stay up for about 4 hours. Patient is currrently back in bed. She denies other needs at this time. Call light in reach. Will report to NOC shift RN.
--- NOTE | 2021-12-12 22:23 | NUR ---
CARE ASSUMPTION PT LYING IN BED OCCASIONALLY READJUSTING HER NC CAUSING HER O2 SATS TO DROP INTO THE 70'S. PT EDUCATED ON THE IMPORTANCE OF NOT MESSING W HER NC SO THE IT DOES NOT FALL OUT. O2 SATS >90% O AIRVO 60L W 80% FIO2. RT CONSULTED ABOUT THE POSSIBLE NEED FOR A BIPAP IN THE PT'S ROOM DUE TO INCREASING O2 NEEDS AND DESSATING WHEN SHE MESSES WITH HER NC. VSS AND AFEBRILE. PT ASSISTED ONTO HER R SIDE AND IS SLEEPING COMFORTABLEY W CALL LIGHT WITHIN REACH.
--- NOTE | 2021-12-13 01:45 | NUR ---
update pt unable to maintain 02 sats >88% on 60l w 90% fio2 so she was placed on cpap by rt.
--- NOTE | 2021-12-13 06:01 | NUR ---
RIGGING HELPER SUMMARY PT IS AXO TO SELF AND PLACE. PT FOLLOWS DIRECTION BUT DOES NOT USE HER CALL LIGHT TO MAKE HER NEEDS KNOWN. PT WAS UNABLE TO MAINTAIN O2 SATS >88% ON AIRVO DESPITE MULTIPLE ATTEMPTS TO REPOSION ON HER SIDES SHE IS UNABLE TO PRONE SO SHE WAS PLACED ON CPAP OF 10 W AN FIO2 OF 80%. O2 SATS >90% ON CPAP. BP WNL AND STABLE. PT AFEBRILE THIS SHIFT. PT SLEPT COMFORTABLY FOR MOST OF THE SHIFT. WILL REPORT ONCOMING RN.
--- NOTE | 2021-12-13 08:30 | NUR ---
Initial assessment: Patient is awake and sitting up in the chair. She is alert and oriented to self only. She denies pain at this time. HRR, SR in the 80s per telemetry. She is taking a break from the C-Pap currently, oxygen saturations are in the low 80s high 70s on high flow NC 70L 100%. Patient was placed back in the Bi-Pap at 10cm H2O and FIO2 70%, oxygen saturations slowly increased to mid 90s. FIO2 titrated down 65%-patient was able to maintain saturations in the low 90s. BT+. PPP. VSS. Call light in reach, will continue to monitor.
[2021-12-13 09:30] LABS: Hematocrit 38.7 % (33.0-51.0); Hemoglobin 12.4 g/dL (11.5-16.0)
[2021-12-13 09:51] LABS: Anion Gap 8 mmol/L (6-16); Blood Urea Nitrogen 28 mg/dL (8-24); CO2, Blood 24 mmol/L (21-32); Calcium, Blood 8.4 mg/dL (8.5-10.1); Chloride, Blood 115 mmol/L (98-108); Glomerular Filtration Rate >60 (60-); Glucose, Blood 155 mg/dL (70-99); Sodium, Blood 147 mmol/L (136-145)
--- NOTE | 2021-12-13 10:30 | NUR ---
Update: Patient was assisted back to bed from the chair after using the BSC. She was given another break from the c-pap, she was able to tolerate being off the c-pap for about 30 min before her saturations dropped into the high 70s. am meds given at this time. C-pap is back on FIO2 initially at 100% to assist the patient in recovering, after about 5 min this RN was able to titrate her FIO2 back down to 65% with saturations in the low 90s. I discussed code status with patient, in the event that she declines further patient stated she did not want to be intubated. I recieved a call from the patients manager intensive care unit, she was provided an update. I asked if she had a POA or knew who the decision maker was for patient she stated, "she has always made her own decisions." I talked with her about patients wishes regarding intubation. Caregiver verbalized understanding. Patient is resting comfortably at this time. Call light in reach. Will continue to monitor.
[2021-12-13 13:55] LABS: Albumin, Blood 2.6 g/dL (3.4-5.0); Albumin/Globulin Ratio 0.7 (0.8-1.8); Bilirubin, Direct 0.3 mg/dL (0.0-0.3); Bilirubin, Indirect 0.3 mg/dL (0.1-0.7); Bilirubin, Total 0.6 mg/dL (0.1-1.0); Globulin, Blood 3.5 g/dL (2.2-4.0); Total Protein, Blood 6.1 g/dL (6.4-8.2)
--- NOTE | 2021-12-13 15:00 | NUR ---
Update: Patient has remained on C-Pap. She is now able to take a break for about 30 min. VSS. Oral care done. Patient was able to drink a little bit of her glucerna. Patient back on C-Pap at 100% FIO2 oxygen saturations in the mid 90s, will attempt tp titrate her back down if able. Call light in reach. Will continue to monitor. I discussed patient with palliative care, they will meet with patient and caregiver to discuss code status.
--- NOTE | 2021-12-13 18:35 | NUR ---
Summary: Patient is here with COVID pneumonia. Patient has been on the C-Pap for the majority of the day, with a few breaks on high flow NC. Her Bi-pap settings at the start of the shift were 10 cm h2o and 65% FIO2, they gradually increased to 10 cm H20 and 100% FIO2. She is requring 70L and 100% FI02 when off the bi-pap, her breaks are lasting about 30 min before her oxygen saturations sustain in the low 80s. She has been able to turn from side to side and she was OOB this AM. I talked with the patient regarding her wishes should she continue to decline and possibly require intubation, she said she does not want to be intubated. Per her caregiver Aleida the patient has always been her own decision maker. Palliative care consulted for code status clarification. The patient is resting on her right side currently on the C-Pap 02 96%. Will report to oncoming RN.
--- NOTE | 2021-12-13 22:02 | NUR ---
ASSUMED CARE OF PT AT 1900 REPORTS NO PAIN, CP/PRESSURE. A/OX1 (SELF), KNOWS SHE'S IN [place] BUT DOESN'T KNOW WHAT KIND OF FACILITY. PUPILS UNEQUAL R4 L2. LS RHONCHI LOBES, DIM LOWER. ON CPAP 10/100% AND SATTING AT 95%, BUT DECREASES TO 80'S WITH ANY ACTIVITY. SR ON TELE 80'S. VSS. REDDENED AREA UNDER LEFT PANUS IN INGUINAL AREA. PATIENT IS AWAITING BEING MOVED TO ICU FOR CLOSER OBSERVATION. PT REMAINS FULL CODE AT THIS TIME. WILL UPDATE CHANGES OCCUR.
--- NOTE | 2021-12-14 02:12 | NUR ---
CARE ASSUMTPION PT ARRIVED TO ICU 6 AND WAS TRANSFERED TO ICU BED BY STAFF. O2 SATS REMAINED >90% ON CPAP 11 W 90% FIO2. PT PLACED ON HER SIDE W EXTRA PILLOWS FOR COMFORT. PT DECLINING ANY FURTHER NEEDS AT THIS TIME. VSS AND TELE SHOWING SR IN THE 60'S.
--- NOTE | 2021-12-14 06:29 | NUR ---
CHURCH OFFICIAL SUMMARY PT IS AXO X2-3, FOLLOWS DIRECTIONS BUT DOES NOT USE HER CALL LIGHT TO MAKE HER NEEDS KNOWN. PT UNWILLING TO PRONE HOWEVER, SHE IS WILLING TO LIE ON HER SIDES SO THE PT ASSISTED ON TURNING FROM SIDE TO SIDE Q2H WHICH IMPROVED HER O2 SATS SO SHE WAS TITRATED FROM 90% FIO2 TO 75% FIO2. PT HAS MAINTAINED O2 SATS >92% ON CPAP 11 W 75% FIO2 FOR MOST OF THE SHIFT. AMOR CATHETER PATENT AND DRAINING 450ML CLEAR YELLOW URINE THIS SHIFT. PT DENYING ANY PAIN OR NAUSEA THIS SHIFT BUT DOES STILL STRUGGLE W DRY HACKING COUGH WHICH CAUSES HER O2 SATS TO DROP, COUGH MEDICINE GIVEN PER EMAR. VSS AND PT AFEBRILE. WILL REPORT TO ONCOMING RN.
--- NOTE | 2021-12-14 07:05 | NUR ---
ASSUME CARE: I have assumed care of pt. At this time she is resting quietly in bed with CPAP in place; FiO2 75%, CPAP 11.
--- NOTE | 2021-12-14 17:55 | NUR ---
SHIFT SUMMARY: FiO2 at 75% all day. Pt able to take PO medications and PO fluids, but was unable to eat. When CPAP is removed pt desats down to the 60's, even with Airvo in place. She has been able to assist with q2 hr turns. Caregiver at bedside this afternoon and states that pt makes her own medical decisions. No BM today althought pt reports the urge to stool; stool softeners started.
--- NOTE | 2021-12-14 20:00 | NUR ---
ASSUMED CARE RECEIVED REPORT FROM DARIUSZ URIARTE AT 1900. PT IS ALERT AND ORIENTED X3, PLEASANT AND COOPERATIVE. SHE IS ABLE TO EXPRESS HER NEEDS WELL, BUT DIFFICULT UNDERSTANDING D/T CPAP. SHE HAS DEVELOPMENTAL DELAY AT BASELINE. SHE IS WEARING CPAP AT 11, FIO2 75%, SPO2 88-94%. SHE QUICKLY DESATS INTO 70'S WHEN CPAP OFF TO TAKE MEDS OR FOR A DRINK, RECOVERS FAIRLY WELL. LUNGS SOUND CLEAR AND DIMINISHED, SHE HAS A DRY, HACKING COUGH. HR IS SR IN 60-70'S. BP STABLE. BOWEL TONES ACTIVE X4. AMOR PATENT, DRAINING TO GRAVITY, YELLOW CLEAR URINE. SHE IS ABLE TO MOVE INDEPENDENTLY IN BED TO MAKE SMALL CHANGES TO POSITION FOR COMFORT, ASSISTS WITH BIG TURNS. ORDERS REVIEWED AND WILL TREAT PRESCRIBED.
[2021-12-15 04:21] LABS: Hematocrit 34.8 % (33.0-51.0); Hemoglobin 11.3 g/dL (11.5-16.0); Mean Corpuscular HGB 28.9 pg (26.0-34.0); Mean Corpuscular HGB Conc 32.5 g/dL (31.5-36.5); Mean Corpuscular Volume 89 fL (80-100); Mean Platelet Volume 9.7 fL (9.1-12.4); Platelet Count 277 K/mm3 (150-400); RDW Standard Deviation 45.7 fL (35.1-46.3); Red Blood Cell Count 3.91 M/mm3 (3.80-5.20); White Blood Cell Count 10.55 K/mm3 (4.00-11.30)
[2021-12-15 04:50] LABS: Anion Gap 5 mmol/L (6-16); Blood Urea Nitrogen 25 mg/dL (8-24); Bun/Creatinine Ratio 30.5 (12.0-20.0); CO2, Blood 28 mmol/L (21-32); Calcium, Blood 8.6 mg/dL (8.5-10.1); Chloride, Blood 109 mmol/L (98-108); Creatinine, Blood 0.82 mg/dL (0.40-1.00); Glomerular Filtration Rate >60 (60-); Glucose, Blood 114 mg/dL (70-99); Potassium, Blood 4.1 mmol/L (3.5-5.5); Sodium, Blood 142 mmol/L (136-145)
--- NOTE | 2021-12-15 05:07 | NUR ---
PT NOTED TO DESAT INTO LOW 80'S D/T COUGHING FIT. FIO2 VIA CPAP INCREASED TO 100%, AND PT SLOWLY RECOVERED INTO LOW 90'S.
--- NOTE | 2021-12-15 06:45 | NUR ---
PT REMAINS CPAP DEPENDENT. QUICKLY DESATS INTO 60-70'S WHEN MASK REMOVED FOR LESS THAN A MINUTE. SHE ALSO HAS A DRY, HACKING COUGH THAT WILL CAUSE HER TO DESAT INTO 80'S WHILE ON CPAP. O2 INCREASED FROM 75 TO 100%, CURRENTLY SATTING IN MID 90'S AND SHE IS RESTING. SHE REMAINS A/OX3, COOPERATIVE AND ABLE TO FOLLOW COMMANDS. AFEBRILE. HR SB TO SR, RATE 50-70'S. BP STABLE. AMOR PATENT, 375ML OUT THIS SHIFT, 300ML PO FLUIDS IN THIS SHIFT D/T DESATTING. MORNING PO MEDS HELD D/T PT STATUS. WILL REPORT TO ONCOMING SHIFT.
--- NOTE | 2021-12-15 12:52 | NUR ---
BIPAP BREAK PT PLACED ON HIFLOW NC 60L, FIO2 100%. PT WITH SPO2 IMMEDIATELY DROPPING TO HIGH 70'S TO LOW 80'S. PT ABLE TO TAKE A FEW SIPS OF WATER AND SUCCESSFULLY SWALLOW PILLS. PT CONTINUED TO HAVE SPO2 MAINTAIN LOW 80'S. PT PLACED BACK ON BIPAP AT THIS TIME 15/11, FIO2 100%. WILL CONTINUE TO MONITOR.
--- NOTE | 2021-12-15 17:13 | NUR ---
SHIFT SUMMARY PT HAS REMAINED AWAKE, ALERT, AND ORIENTED THIS SHIFT. PT IS VERY PLEASANT AND ENGAGED IN CARE. PT REMAINS BIPAP DEPENDENT WITH SETTINGS 15/12, FIO2 100%. PT DESATURATES RAPIDLY WITH ANY BREAKS FROM BIPAP. PT DENIES DISCOMFORT OR SOB AT THIS TIME. VITAL SIGNS STABLE WHEN PT RESTING ON BIPAP. IV AND POWERGLIDE REMAINS SALINE LOCKED. PT WITH AMOR IN PLACE WITH MINIMAL AMOUNT OF DARK YELLOW URINE OUTPUT NOTED THIS SHIFT. PT PRONED FOR SOME TIME THIS SHIFT AND TOLERATED WELL. PT CAREGIVER UPDATED VIA PHONE TODAY. WILL CONTINUE TO MONITOR AND REPORT OFF TO ONCOMING RN.
--- NOTE | 2021-12-15 19:00 | NUR ---
ASSUMED CARE ASSUMED CARE OF PATIENT. AWAKE AND ALERT. ORIENTED TO SELF, PLACE, AND EVENTS. COOPERATIVE WITH CARE. PT IS ABLE TO REPOSITION SELF IN BED. WATCHING TELEVISION. REMAINS ON BIPAP 15/12, BUR 12, FIO2 100%. RR MID-20s. MONITOR SHOWS NSR, RATE 70s. BP STABLE. AMOR PATENT AND DRAINING TO GRAVITY. REMAINS IN ISOLATION FOR COVID. SEE SHIFT ASSESSMENT FOR FULL ASSESSMENT.
--- NOTE | 2021-12-15 20:15 | NUR ---
BIPAP BREAK PT GIVEN SHORT BREAK ON BIPAP AND PLACED ON AIRVO 70L/100% TO TAKE PO MEDS. PT SATS DECREASED TO HIGH 70s AND PT BECAME SOB/DYSPNEIC WITHIN SEVERAL MINUTES. SWALLOWED PILLS WITHOUT DIFFICULTY. PLACED BACK ON BIPAP AND SATS RECOVERED EASILY.
[2021-12-16 03:37] LABS: Source, Urine Foley catheter
[2021-12-16 03:41] LABS: BASOPHILS ABSOLUTE AUTO 0.01 K/mm3 (0.00-0.23); BASOPHILS PERCENT AUTO 0 % (0-2); EOSINOPHILS ABSOLUTE AUTO 0.02 K/mm3 (0.00-0.68); EOSINOPHILS PERCENT AUTO 0 % (0-6); Hematocrit 34.3 % (33.0-51.0); Hemoglobin 11.1 g/dL (11.5-16.0); IMMATURE GRAN ABSOLUTE AUTO 0.13 K/mm3 (0.00-0.10); IMMATURE GRAN PERCENT AUTO 1 % (0-1); LYMPHOCYTES PERCENT AUTO 4 % (21-46); MONOCYTES ABSOLUTE AUTO 0.17 K/mm3 (0.16-1.47); MONOCYTES PERCENT AUTO 1 % (4-13); Mean Corpuscular HGB 28.9 pg (26.0-34.0); Mean Corpuscular HGB Conc 32.4 g/dL (31.5-36.5); Mean Corpuscular Volume 89 fL (80-100); NEUTROPHILS ABSOLUTE AUTO 11.36 K/mm3 (1.96-9.15); NEUTROPHILS PERCENT AUTO 93 % (41-73); Platelet Count 291 K/mm3 (150-400); RDW Coefficient Variation 14.1 % (11.7-14.2); RDW Standard Deviation 45.6 fL (35.1-46.3); Red Blood Cell Count 3.84 M/mm3 (3.80-5.20); White Blood Cell Count 12.19 K/mm3 (4.00-11.30)
[2021-12-16 03:41] LABS: Bilirubin, Urine Neg (Neg); Blood, Urine 3+ (Neg); Glucose Qualitative, Urine Neg (Neg); Ketones, Urine Neg (Neg); Leukocyte Esterase, Urine Neg (Neg); Nitrite, Urine Neg (Neg); Protein, Urine 2+ (Neg); Specific Gravity, Urine 1.025 (1.003-1.022); Urobilinogen, Urine 2+ (Normal)
[2021-12-16 04:01] LABS: Anion Gap 5 mmol/L (6-16); Blood Urea Nitrogen 27 mg/dL (8-24); CO2, Blood 28 mmol/L (21-32); Calcium, Blood 8.3 mg/dL (8.5-10.1); Chloride, Blood 109 mmol/L (98-108); Creatinine, Blood 0.85 mg/dL (0.40-1.00); Glomerular Filtration Rate >60 (60-); Glucose, Blood 114 mg/dL (70-99); Magnesium, Blood 2.6 mg/dL (1.6-2.4); Phosphorus, Blood 3.2 mg/dL (2.5-4.9); Potassium, Blood 4.2 mmol/L (3.5-5.5); Sodium, Blood 142 mmol/L (136-145)
[2021-12-16 04:16] LABS: Color, Urine Yellow (P-Yellow)
[2021-12-16 04:17] LABS: Amorphous Mod (0-Heavy); Appearance, Urine Hazy (Clear); Bacteria Few /hpf; Mucus Light (0-Heavy); Squamous Epithelial Cells Not Seen /hpf (Few); White Blood Cells, Urine Rare /hpf (0-5)
--- NOTE | 2021-12-16 07:00 | NUR ---
SHIFT SUMMARY NO ACUTE CHANGES. REMAINED ON BIPAP 15/12 WITH BUR 12, FIO2 100% T/O NOC. SHORT BREAKS (MINIMUM 2-3MINUTES) WITH AIRVO 70L/100%FIO2- SATS DECREASED TO 70s AND PT BECAME DYSPNEIC/SOB. CONTINUES WITH FREQUENT COUGHING- ROBITUSSIN 10ML GIVEN X 2 DOSES. DENIES C/O PAIN OR DISCOMFORT. C/O FEELING HUNGRY, BUT UNDERSTANDS THAT SHE IS UNABLE TO EAT AT THIS TIME D/T HER RESPIRATORY STATUS. VSS. AFEBRILE. MT PATENT. WILL REPORT TO ONCOMING RN WHEN AVAILABLE.
--- NOTE | 2021-12-16 17:26 | NUR ---
SHIFT SUMMARY NO ACUTE CHANGES THIS SHIFT. PT REMAINS AWAKE, ALERT, AND ORIENTED. PT REMAINS BIPAP/CPAP DEPENDENT. PT DOES NOT TOLERATE BREAKS TO HIFLOW NC. PT CURRENTLY ON CPAP 14, FIO2 90% WITH SPO2 >90% AT REST. POWERGLIDE REMAINS SALINE LOCKED. AMOR REMAINS IN PLACE WITH DARK YELLOW URINE OUTPUT NOTED. PT ABLE TO REPOSITION SELF INDEPENDENTLY AND WITH MINIMAL ASSISTANCE. VITAL SIGNS HAVE REMAINED STABLE. PT MIDLEVEL PROVIDER AT BEDSIDE THIS AFTERNOON FOR SHORT TIME. UPDATED TO PT CONDITION. WILL CONTINUE TO MONITOR AND REPORT OFF TO ONCOMING RN.
--- NOTE | 2021-12-16 19:00 | NUR ---
ASSUMED CARE ASSUMED CARE OF PATIENT. REMAINS ON CPAP 14, FIO2 90%. RR 30s. FREQUENT NON-PRODUCTIVE COUGH NOTED. MONITOR SHOWS NSR, RATE 70s. BP STABLE. AMOR PATENT AND DRAINING YELLOW URINE. SEE SHIFT ASSESSMENT FOR FULL ASSESSMENT.
--- NOTE | 2021-12-16 20:15 | NUR ---
CPAP BREAK/HS MEDS PT GIVEN SHORT BREAK FROM BIPAP AND PLACED ON AIRVO FOR HS MEDS. TOLERATED WELL FOR APPROXIMATELY TWO MINUTES BEFORE SATS DECREASED TO 78-79%. PT ALSO CONTINUES TO HAVE FREQUENT PERIODS OF NON-PRODUCTIVE COUGHING, ALTHOUGH NONE NOTED WITH PO INTAKE. SWALLOWS WITHOUT DIFFICULTY. CPAP BACK ON WITH FIO2 INCREASED TO 100% AFTER MEDS GIVEN.
--- NOTE | 2021-12-16 22:30 | NUR ---
CALL TO MD REGARDING COUGHING PT WITH CONTINUOUS COUGHING DESPITE ORDERED COUGH MEDICINE. SATS DECREASED TO LOW TO MID 80s WITH COUGHING. DR. HERRERA NOTIFIED- NEW ORDER RECEIVED FOR DANDRE MARTINEZ.
--- NOTE | 2021-12-17 01:05 | NUR ---
CALL TO MD PT CONTINUES WITH ALMOST CONTINUOUS COUGHING DESPITE ORDERED COUGH MEDICINE AND LIDOCAINE UPDRAFT. SATS DECREASED TO 81-83% WITH FIO2 100%. DR. HERRERA UPDATED- NEW ORDER RECEIVED FOR PRECEDEX.
[2021-12-17 04:00] LABS: BASOPHILS ABSOLUTE AUTO 0.01 K/mm3 (0.00-0.23); BASOPHILS PERCENT AUTO 0 % (0-2); EOSINOPHILS ABSOLUTE AUTO 0.08 K/mm3 (0.00-0.68); EOSINOPHILS PERCENT AUTO 1 % (0-6); Hematocrit 33.6 % (33.0-51.0); Hemoglobin 10.7 g/dL (11.5-16.0); IMMATURE GRAN ABSOLUTE AUTO 0.09 K/mm3 (0.00-0.10); IMMATURE GRAN PERCENT AUTO 1 % (0-1); LYMPHOCYTES ABSOLUTE AUTO 0.36 K/mm3 (0.84-5.20); LYMPHOCYTES PERCENT AUTO 2 % (21-46); MONOCYTES ABSOLUTE AUTO 0.32 K/mm3 (0.16-1.47); MONOCYTES PERCENT AUTO 2 % (4-13); Mean Corpuscular HGB 28.2 pg (26.0-34.0); Mean Corpuscular HGB Conc 31.8 g/dL (31.5-36.5); Mean Corpuscular Volume 89 fL (80-100); Mean Platelet Volume 10.3 fL (9.1-12.4); NEUTROPHILS ABSOLUTE AUTO 15.84 K/mm3 (1.96-9.15); NEUTROPHILS PERCENT AUTO 95 % (41-73); Platelet Count 308 K/mm3 (150-400); RDW Coefficient Variation 14.1 % (11.7-14.2); RDW Standard Deviation 45.3 fL (35.1-46.3); Red Blood Cell Count 3.79 M/mm3 (3.80-5.20)
[2021-12-17 04:30] LABS: Anion Gap 6 mmol/L (6-16); Blood Urea Nitrogen 30 mg/dL (8-24); Bun/Creatinine Ratio 33.4 (12.0-20.0); CO2, Blood 26 mmol/L (21-32); Calcium, Blood 8.7 mg/dL (8.5-10.1); Chloride, Blood 108 mmol/L (98-108); Glomerular Filtration Rate >60 (60-); Glucose, Blood 122 mg/dL (70-99); Magnesium, Blood 2.3 mg/dL (1.6-2.4); Phosphorus, Blood 2.3 mg/dL (2.5-4.9); Potassium, Blood 3.9 mmol/L (3.5-5.5); Sodium, Blood 140 mmol/L (136-145)
--- NOTE | 2021-12-17 06:08 | NUR ---
SHIFT SUMMARY REMAINED ON CPAP 14 T/O NOC WITH MINIMAL BREAKS OF 1-2 MINUTE DURATION. FIO2 TITRATED BETWEEN 90-100%. NOW AT 100% TO MAINTAIN ADEQUATE SPO2. RR 20s-30s. FREQUENT COUGHING WHEN AWAKE. MEDICATED WITH COUGH MEDICINE PER EMAR WITH MINIMAL RELIEF. PT INCREASINGLY ANXIOUS AND DYSPNEIC WITH COUGHING. PRECEDEX STARTED FOR CPAP TOLERANCE- NOW INFUSING AT 0.6MCG/KG/HR. VSS. AFEBRILE. AMOR PATENT AND DRAINING TO GRAVITY. WILL REPORT TO ONCOMING RN WHEN AVAILABLE.
--- NOTE | 2021-12-17 14:52 | NUR ---
INTUBATION PT CONTINUED ON CPAP 15, FIO2 100% WITH MORE EPISODES OF DESATURATION. DR HERRERA DECIDED TO INTUBATE. PT BOOSTED IN BED. RT AT BEDSIDE. PT SEDATED WITH PROPOFOL GTT INITIATED AT 30 MCG/KG/MIN AT 1400 WITH 50 MG PROPOFOL IV PUSH BY DR HERRERA. 50 MG IV MECHELLE GIVEN AT 1402. 8.0 ETT PLACED AT [address] HERRERA AT 1403. COLOR CHANGE NOTED WITH BILATERAL BREATH SOUNDS. VENT SETTINGS AC 20, TV 350, PEEP 12, FIO2 100%. OGT PLACED, BILE OUTPUT NOTED. VITAL SIGNS STABLE. WILL CONTINUE TO MONITOR.
[2021-12-17 15:15] LABS: PCO2 Arterial 40.5 mmHg (35-45); PO2 Arterial 51.7 mmHg (80-100); pH Blood Arterial 7.42 (7.35-7.45)
--- NOTE | 2021-12-17 17:43 | NUR ---
SHIFT SUMMARY PT REMAINS STABLE ON VENT S/P INTUBATION THIS AFTERNOON. PRIOR TO INTUBATION PT WAS ALERT AND ORIENTED. PT CURRENTLY SEDATED WITH PROPOFOL AT 50 MCG/KG/MIN. VENT SETTINGS AC 20, TV 350, PEEP 12, FIO2 100%. PT WITH COPIOUS AMOUNT OF CLEAR ORAL SECRETIONS. PICC PLACED TO [facility]. K PHOS INFUSING. PT BECAME HYPOTENSIVE THIS AFTERNOON. DR HERRERA NOTIFIED. ORDERS RECIEVED. SBW RESTRAINTS IN PLACE. AMOR REMAINS IN PLACE WITH DARK YELLOW URINE OUTPUT NOTED. OGT IN PLACE. TUBE FEEDINGS STARTED AT 40 ML/HR PER DIETARY. WILL CONTINUE TO MONITOR AND REPORT OFF TO ONCOMING RN.
--- NOTE | 2021-12-17 22:06 | NUR ---
CALLED PLACED TO DR. HERRERA SOON AFTER COMING ON SHIFT. PATIENT O2 SATS WERE HOLDING AT 85-87% ON 100% AND 12 PEEP. RT WAS ALSO IN ROOM ON INITIAL ASSESSMENT AND NOTICED THE CHARTED ETT PLACEMENT DID NOT MATCH WHERE THE TUBE WAS ACTUALLY AT THE TUBE WAS >24 AT THE [facility]. DR. HERRERA ORDERED FOR THE TUBE TO BE PULLED OUT 2 CM AND ALSO TO PRONE/PALAYZE PATIENT. NO ADJUSTMENTS TO VENT SETTINGS AT THIS TIME. PATIENT IS TO BE PRONED FOR 16HRS. PRONED AT 2100. O2 SATS HAVE ALREADY BEEN IMPROVING AND O2 CURRENTLY 95% ON MONITOR
[2021-12-18 03:22] LABS: BASOPHILS ABSOLUTE AUTO 0.02 K/mm3 (0.00-0.23); BASOPHILS PERCENT AUTO 0 % (0-2); EOSINOPHILS ABSOLUTE AUTO 0.02 K/mm3 (0.00-0.68); EOSINOPHILS PERCENT AUTO 0 % (0-6); Hematocrit 32.8 % (33.0-51.0); Hemoglobin 10.5 g/dL (11.5-16.0); IMMATURE GRAN ABSOLUTE AUTO 0.11 K/mm3 (0.00-0.10); IMMATURE GRAN PERCENT AUTO 1 % (0-1); LYMPHOCYTES PERCENT AUTO 2 % (21-46); MONOCYTES PERCENT AUTO 1 % (4-13); Mean Corpuscular HGB 29.1 pg (26.0-34.0); Mean Corpuscular Volume 91 fL (80-100); Mean Platelet Volume 10.1 fL (9.1-12.4); NEUTROPHILS PERCENT AUTO 96 % (41-73); Platelet Count 274 K/mm3 (150-400); RDW Coefficient Variation 14.4 % (11.7-14.2); RDW Standard Deviation 47.9 fL (35.1-46.3); Red Blood Cell Count 3.61 M/mm3 (3.80-5.20); White Blood Cell Count 17.55 K/mm3 (4.00-11.30)
[2021-12-18 03:40] LABS: Alanine Aminotransfer (ALT/SGP 59 U/L (12-78); Albumin, Blood 1.9 g/dL (3.4-5.0); Albumin/Globulin Ratio 0.4 (0.8-1.8); Alk Phos 87 U/L (50-136); Anion Gap 5 mmol/L (6-16); Aspartate Aminotrans (AST/SGOT 37 U/L (12-37); Bilirubin, Total 0.5 mg/dL (0.1-1.0); Blood Urea Nitrogen 23 mg/dL (8-24); CO2, Blood 27 mmol/L (21-32); Calcium, Blood 8.6 mg/dL (8.5-10.1); Chloride, Blood 107 mmol/L (98-108); Globulin, Blood 4.3 g/dL (2.2-4.0); Glomerular Filtration Rate >60 (60-); Glucose, Blood 195 mg/dL (70-99); Magnesium, Blood 2.4 mg/dL (1.6-2.4); Phosphorus, Blood 3.1 mg/dL (2.5-4.9); Potassium, Blood 4.3 mmol/L (3.5-5.5); Sodium, Blood 139 mmol/L (136-145); Total Protein, Blood 6.2 g/dL (6.4-8.2)
[2021-12-18 04:53] LABS: PCO2 Arterial 56.7 mmHg (35-45); PO2 Arterial 64.8 mmHg (80-100)
--- NOTE | 2021-12-18 06:20 | NUR ---
SHIFT SUMSARTHAK: PATIENT PRONED AT 2100 AND IS TO BE PRONED FOR 16HRS. TOLERATED VENT WELL EVER SINCE BEING PRONED. SHE HAS BEEN BROUGHT DOWN TO 90% FIO2. SEDATED WITH NIMBEX/PROPOFOL. PATIENT TURNED Q2. SPOKE WITH CAREGIVER WELL AND LET HER KNOW ALL OF THE CHANGES SINCE LAST BEING UPDATED AND ANSWERED A LOT OF QUESTIONS.
--- NOTE | 2021-12-18 11:32 | NUR ---
ASSUMED PT CARE DAVEY NIGHT RN. PT CURRENTLY PRONE SINCE 2099. VENT SETTINGS NOTED AND PT ON 70%, NIMBEX AT 1.5, PROP AT 50MCG AND LR GOING AT 100ML/HR. TOF 1/4 ON POWER 10. VITALS WNL, WILL CONTINUE TO MONITOR.
--- NOTE | 2021-12-18 16:24 | NUR ---
PT PLACED SUPINE @1500 WITH ASSISTANCE FROM STAFF. NIMBEX CONT. AND INCREASED TO 2 TOF ON 10 WAS 4/4. WILL CONTINUE TO MONITOR. PT TOLL TURN WELL AND NO ISSUES TO NOT FROM PROCEDURE. DR GRANT ORDERED TO CONTINUIE WITH NIMBEX AND NO FURTHER ORDERS GIVEN.
--- NOTE | 2021-12-18 17:18 | NUR ---
PT RINGS REMOVED X3 AND PLACED IN ZIPLOCK INTO PT BELONGINGS BAG IN ROOM. PROP DOWN TO 30MCG FOR LOW BISS. NIMBEX TO 2 AND TOF AT 10P, 1/4. CURRENT BISS 38 AND PT TOLL VENT SETTINGS WELL ALL OTHER VITALS WNL. WILL CONTINUE TO MONITOR.
--- NOTE | 2021-12-18 18:25 | NUR ---
NIBEX OFF AT [address] GRANT. ALSO, DR GRANT SEES NO NEED TO PRONE TONIGHT. MONITOR
[2021-12-19 04:05] LABS: Bicarbonate Venous 31.3 mmol/L (24.0-30.0); PCO2 Venous 47.2 mmHg (38-42); PO2 Venous 33.6 mmHg (38-42); pH Blood Venous 7.45 (7.34-7.37)
[2021-12-19 04:29] LABS: BASOPHILS ABSOLUTE AUTO 0.01 K/mm3 (0.00-0.23); BASOPHILS PERCENT AUTO 0 % (0-2); EOSINOPHILS ABSOLUTE AUTO 0.15 K/mm3 (0.00-0.68); EOSINOPHILS PERCENT AUTO 1 % (0-6); Hematocrit 30.1 % (33.0-51.0); Hemoglobin 9.4 g/dL (11.5-16.0); IMMATURE GRAN ABSOLUTE AUTO 0.14 K/mm3 (0.00-0.10); IMMATURE GRAN PERCENT AUTO 1 % (0-1); LYMPHOCYTES ABSOLUTE AUTO 0.52 K/mm3 (0.84-5.20); LYMPHOCYTES PERCENT AUTO 4 % (21-46); MONOCYTES ABSOLUTE AUTO 0.17 K/mm3 (0.16-1.47); MONOCYTES PERCENT AUTO 1 % (4-13); Mean Corpuscular HGB 28.5 pg (26.0-34.0); Mean Corpuscular HGB Conc 31.2 g/dL (31.5-36.5); Mean Corpuscular Volume 91 fL (80-100); Mean Platelet Volume 10.6 fL (9.1-12.4); NEUTROPHILS ABSOLUTE AUTO 11.99 K/mm3 (1.96-9.15); NEUTROPHILS PERCENT AUTO 92 % (41-73); Platelet Count 274 K/mm3 (150-400); RDW Coefficient Variation 14.6 % (11.7-14.2); RDW Standard Deviation 49.1 fL (35.1-46.3); White Blood Cell Count 12.98 K/mm3 (4.00-11.30)
[2021-12-19 05:17] LABS: Alanine Aminotransfer (ALT/SGP 59 U/L (12-78); Albumin, Blood 1.7 g/dL (3.4-5.0); Albumin/Globulin Ratio 0.4 (0.8-1.8); Alk Phos 78 U/L (50-136); Anion Gap 4 mmol/L (6-16); Aspartate Aminotrans (AST/SGOT 37 U/L (12-37); Bilirubin, Total 0.4 mg/dL (0.1-1.0); Blood Urea Nitrogen 25 mg/dL (8-24); Bun/Creatinine Ratio 32.2 (12.0-20.0); CO2, Blood 29 mmol/L (21-32); Calcium, Blood 8.7 mg/dL (8.5-10.1); Chloride, Blood 107 mmol/L (98-108); Creatinine, Blood 0.78 mg/dL (0.40-1.00); Globulin, Blood 4.3 g/dL (2.2-4.0); Glomerular Filtration Rate >60 (60-); Glucose, Blood 116 mg/dL (70-99); Potassium, Blood 4.5 mmol/L (3.5-5.5); Sodium, Blood 140 mmol/L (136-145)
--- NOTE | 2021-12-19 05:53 | NUR ---
SHIFT SUMMARY: PATIENT HAS REMAINED SUPINE OVERNIGHT WITH PROPOFOL INFUSING AT 45MCG/KG/MIN. UNABLE TO WEAN SEDATION DOWN DUE TO PATIENT WAKING UP AND COUGHING SO HARSH THAT SHE DESATS INTO LOW 80S. SHE WAS ON 80% FIO2 BUT REQUIRED BEING BUMPED TO 90% AFTER NOT RECOVERING FROM SUCTIONING EARLY IN SHIFT. EVER SINCE, HER O2 HAS REMAINED 90-93%. SHE HAS HAD COPIOUS THICK SECREIONS THAT HAVE SLOWLY THINNED OUT THROUGHOUT THE SHIFT. VSS BUT BP BECOMING MORE LABILE. LEVO HAS NEVER BEEN STARTED BUT AT BEDSIDE. Q2 TURNS WITH NO DESATING. NO BM CHARTED SINCE 12/09. STOOL SOFTENERS GIVEN AND PATIENT PASSING GAS. TUBE FEED ORDER NEEDS CLARIFIED TODAY WE WENT FROM 60ML/HR TO 15ML/HR PER DR. GARCIA HP INFUSING AT 15ML/HR CURRENTLY.
--- NOTE | 2021-12-19 09:37 | NUR ---
DR. GRANT IN ROOM. DR. GRANT PALPATED PATIENT'S STOMACH AND PATIENT WENT IN TO COUGHING FIT. PATIENT DESATTED DOWN INTO 60S. CHARGE NURSE AND THIS RN TO PATIENT ROOM WHEN CALLED BY DR. GRANT. ORDERED TO GIVE 80 MG ROCURONIUM IV NOW. RSI KIT PULLED AND [address] MG MECHELLE GIVEN TO DR. GRANT. DR. GRANT GAVE MECHELLE AND O2 SLOWLY CAME BACK UP TO 90S. PRIMARY NURSE INFORMED.
--- NOTE | 2021-12-19 12:56 | NUR ---
assumed care from radiopharmacist, assessment as stated in chart. pt vent settings remaim unchanged and as noted. will continue to monitor.
--- NOTE | 2021-12-19 12:57 | NUR ---
PT BECAME UNSTABLE AND NOT VENTINLATING WELL WITH SATS IN THE 70S AT APPROX 1100. DR GRANT CALLED TO ROOM. PT PLACED ON NIMBEX AT 2 WITH TOF ON 10 AT 0/4. PT THEN PRONED AT 1130, LEVO STARTED AT 4 FOR MAPS IN THE 50S. FENT ALSO STARTED THERE AFTER. PT TOLLERATED TURN WELL AND IMPROVEMENTS IN SATS AFTER TURN TO 90S. LEVO INCREASED TO 8MCG FOR CONT. LOW BP MAPS IN THE 50S. PT CURRENTLY VENTING WELL, SATS 94, HR 93, BP 103/49, TOF 0/4, BIS 45. WILL CONTINUE TO MONITOR.
--- NOTE | 2021-12-19 18:47 | NUR ---
DR GRANT IN, VENT REDUCED TO 60%FIO2, ALSO ORDERED TO KEEP PT PRONE FOR 24HR. PT DRIPS REMAIN SAME AND PT SETTING AND VITALS ARE HORDING STABLE. WILL CONTINUE TO MONITOR.
[2021-12-20 03:44] LABS: BASOPHILS ABSOLUTE AUTO 0.03 K/mm3 (0.00-0.23); BASOPHILS PERCENT AUTO 0 % (0-2); EOSINOPHILS ABSOLUTE AUTO 0.02 K/mm3 (0.00-0.68); EOSINOPHILS PERCENT AUTO 0 % (0-6); Hematocrit 30.3 % (33.0-51.0); Hemoglobin 9.7 g/dL (11.5-16.0); IMMATURE GRAN ABSOLUTE AUTO 0.22 K/mm3 (0.00-0.10); IMMATURE GRAN PERCENT AUTO 2 % (0-1); LYMPHOCYTES ABSOLUTE AUTO 0.39 K/mm3 (0.84-5.20); LYMPHOCYTES PERCENT AUTO 3 % (21-46); MONOCYTES ABSOLUTE AUTO 0.24 K/mm3 (0.16-1.47); MONOCYTES PERCENT AUTO 2 % (4-13); Mean Corpuscular HGB 28.8 pg (26.0-34.0); Mean Corpuscular Volume 90 fL (80-100); Mean Platelet Volume 10.4 fL (9.1-12.4); NEUTROPHILS PERCENT AUTO 92 % (41-73); Platelet Count 308 K/mm3 (150-400); RDW Coefficient Variation 14.6 % (11.7-14.2); Red Blood Cell Count 3.37 M/mm3 (3.80-5.20)
[2021-12-20 04:01] LABS: Anion Gap 6 mmol/L (6-16); Blood Urea Nitrogen 23 mg/dL (8-24); Bun/Creatinine Ratio 31.7 (12.0-20.0); CO2, Blood 29 mmol/L (21-32); Calcium, Blood 8.3 mg/dL (8.5-10.1); Chloride, Blood 102 mmol/L (98-108); Creatinine, Blood 0.73 mg/dL (0.40-1.00); Glomerular Filtration Rate >60 (60-); Glucose, Blood 222 mg/dL (70-99); Magnesium, Blood 2.1 mg/dL (1.6-2.4); Phosphorus, Blood 2.6 mg/dL (2.5-4.9); Potassium, Blood 3.9 mmol/L (3.5-5.5); Sodium, Blood 137 mmol/L (136-145)
--- NOTE | 2021-12-20 06:23 | NUR ---
SHIFT SUMMARY: PATIENT HAS REMAINED PRONED THE ENTIRE SHIFT AND IS DUE TO BE SUPINED AT 1000. SHE IS SEDATED/PARALZYED WITH PROPOFOL, FENTANYL, AND NIMBEX. VSS AND LEVOPHED DRIP WAS ALSO TITRATED OFF. 500 OUPUT WITH LASIX. NO BM. VENT SETTINGS HAVE BEEN ADJUSTED PER RT DOWN TO 50% FIO2. NO ABG WAS ORDERED THIS SHIFT. LABS WNL
--- NOTE | 2021-12-20 11:19 | NUR ---
PT SUPINE AT THIS TIME. VENT SETTINGS UNCHANGED OTHER THEN O2 @70%. NIMBEX OFF, PROP 45, FENTANYL 50 MCG/HR, LEVO STARTED AT 2. WILL CONTINUE TO MONITOR
--- NOTE | 2021-12-20 16:25 | NUR ---
PT PRONE, LEVO OFF, PROP TO 50MCG, FENTANYL 50MCG/HR, TF TO GOAL OF 20ML/HR. NIMBEX ON TO 2MCG. WILL CONTINUE TO MONITOR.
--- NOTE | 2021-12-20 22:52 | NUR ---
CALL PLACED TO DR. GRANT REGARDING VENT SETTINGS EVERYTHING LOOKED LIKE IT WAS ADJUSTED TODAY BUT THE ORDER WAS NOT CHANGED AND THERE WAS NO NOTE ABOUT ANY VENT CHANGES BEING MADE TODAY OR TOLD IN REPORT. SETTINGS VERIFIED AND SHE IS TO BE VC/AC //50%. SPOKE WITH RT REGARDING THESE ORDERS AND AN RT COMMUNICATION WAS PUT IN
[2021-12-21 03:33] LABS: Hematocrit 32.3 % (33.0-51.0); Hemoglobin 10.5 g/dL (11.5-16.0); Mean Corpuscular HGB 28.6 pg (26.0-34.0); Mean Corpuscular HGB Conc 32.5 g/dL (31.5-36.5); Mean Corpuscular Volume 88 fL (80-100); Mean Platelet Volume 10.2 fL (9.1-12.4); Platelet Count 354 K/mm3 (150-400); RDW Coefficient Variation 14.5 % (11.7-14.2); Red Blood Cell Count 3.67 M/mm3 (3.80-5.20); White Blood Cell Count 10.24 K/mm3 (4.00-11.30)
[2021-12-21 03:56] LABS: Anion Gap 6 mmol/L (6-16); Blood Urea Nitrogen 33 mg/dL (8-24); CO2, Blood 31 mmol/L (21-32); Calcium, Blood 8.4 mg/dL (8.5-10.1); Chloride, Blood 99 mmol/L (98-108); Creatinine, Blood 0.67 mg/dL (0.40-1.00); Glomerular Filtration Rate >60 (60-); Glucose, Blood 152 mg/dL (70-99); Potassium, Blood 3.4 mmol/L (3.5-5.5); Sodium, Blood 136 mmol/L (136-145)
[2021-12-21 04:05] LABS: BAND PERCENT MAN 11 % (0-8); BASOPHILS PERCENT MAN 0 % (0-2); EOSINOPHILS PERCENT MAN 3 % (0-6); LYMPHOCYTES ABSOLUTE MAN 0.51 K/mm3 (0.84-5.20); LYMPHOCYTES PERCENT MAN 5 % (21-46); MONOCYTES PERCENT MAN 3 % (4-13); MYELOCYTE PERCENT MAN 1 % (0-0); NEUTROPHILS ABSOLUTE MAN 9.01 K/mm3 (1.96-9.15); SEG NEUTROPHILS PERCENT MAN 77 % (41-73); TOTAL CELLS COUNTED 100
--- NOTE | 2021-12-21 06:13 | NUR ---
SHIFT SUMMARY: PATIENT HAS REMAINED PRONED. FIO2 INCREASED TO 60% LATE THIS MORNING DUE TO SATS HOLDING 86%. SHE HAS HAD A MODERATE AMT OF SECRETIONS TONIGHT ORALLY AND VIA ETT. SHE WAS SB IN THE 50S COMING ON SHIFT. SEDATION WAS ADJUSTED AND SHE HAS BEEN 60-70S THE REST OF THE SHIFT. BP STABLE AND LEVO HAS REMAINED OFF. SHE IS SEDATED WITH PROPOFOL, FENTANYL POLLUTION CONTROL TECHNICIAN, AND NIMBEX. K 3.4 AMD 40KCL INFUSING. SHE HAS HAD >1L OUT VIA AMOR AND SHE IS RECEIVING LASIX. NO BM TONIGHT. SHE HAS TOLERATED Q2 TURNS
--- NOTE | 2021-12-21 09:06 | NUR ---
ASSUMED CARE OF PATIENT: PARALYZED NIMBEX 1.5, TOF 2/4 POWERL LEVEL OF 3 FACIAL NERVE, NOT RESPONSIVE TO PAIN D/T PARLYZED, MODERATE SECRETIONS, CUFF LEAK RT 1.5 ML INSTILLED W/ RESOLUTION OF CUFF LEAK, PRONED, LUNGS COARSE CRACKLES BASES, BP HTN 150S, SR 80S, +2 PULSES, AMOR DRAINING ADEQUATE UOP, 0 RESIDUALS, TOELRATING TUBE FEEDS, WILL CONTINUE TO MONITOR, PLAN TO SUPINE AT 1000.
--- NOTE | 2021-12-21 11:19 | NUR ---
Spiritual Care visit. Pt. is vented and in an incline position. Pt. is not responsive to any verbal commands. Pastorally prayed with pt.
--- NOTE | 2021-12-21 16:48 | NUR ---
VILMA ORIENTATION D/T SEDATION/PALYTICS, PUPILS 3/2MM RIGHT/LEFT RESPECTIVE PUPILS MD AWARE, NIMBEX CONTINUES 1.5, TOF 3/10 POWER LEVEL FOR 2/4 TITCHES L FACIAL NERVE, PROP DECREASED TO 40 FOR BIZ <40, BIZ NOW 40-60, FENT CONTINUES 50MCG/HR, NSR 60-80S, +2 PULSES, BLE +1 CONTINUES, BP SOFT TO WNL, LUNGS COARSE W/ CRACKLES BASES, ABLE TO TITRATE DOWN TO 50 FIO2, SUPINED 1000, PRONED AGAIN AT 1600, PLAN FOR 24HR IN PRONE POSITION, TF RESIDUALS MINIMAL TOELRATING, ABDOMEN HYPOACTIVE BOWELS, ABG PENDING, CBGS LOW 200 COVERED W/ LISPRO, WILL CONTINUE TO MONITOR AND REPORT TO NIGHT RN.
[2021-12-21 17:15] LABS: PCO2 Arterial 42.4 mmHg (35-45); pH Blood Arterial 7.48 (7.35-7.45)
--- NOTE | 2021-12-21 19:30 | NUR ---
ASSUMED CARE. SEDATED/PARALYZED/INTUBATED. ON FENATNYL, PROPOFOL, NIMBEX, AND LEVO DRIPS. ALL VERIFIED. ASSISTED RT AND CAESAR WITH REPOSITION OF HEAD, AND EXTREMITIES THE PATIENT IS TO REMAIN PRONE. VENT ON 50% FIO2, SATS REMAINED IN THE 90'S. CATH IS PATIENT. SUCTION AND ORAL CARE PROVIDED. WILL CONTINUE TO MONITOR.
[2021-12-22 05:49] LABS: Hematocrit 29.7 % (33.0-51.0); Hemoglobin 9.7 g/dL (11.5-16.0); Mean Corpuscular HGB 28.6 pg (26.0-34.0); Mean Corpuscular HGB Conc 32.7 g/dL (31.5-36.5); Mean Corpuscular Volume 88 fL (80-100); Mean Platelet Volume 11.1 fL (9.1-12.4); Platelet Count 290 K/mm3 (150-400); RDW Coefficient Variation 14.3 % (11.7-14.2); RDW Standard Deviation 45.3 fL (35.1-46.3); Red Blood Cell Count 3.39 M/mm3 (3.80-5.20); White Blood Cell Count 9.32 K/mm3 (4.00-11.30)
--- NOTE | 2021-12-22 06:18 | NUR ---
SHIFT SUMMARY: PATIENT SEDATED/PARALYZED/INTUBATED. HAS BEEN IN THE PRONE POSITION SINCE 1600 YESTERDAY. LUNG SOUNDS CLEAR IN UPPER LOBES, COARSE BASES. VENT ON /. SHE DID DESAT FOR SHORT PERIOD OF TIME WHICH IS WHY SHE WAS INCREASED TO 60% FIO2. PEEP STILL ON . NO CHANGES WERE MADE TO CURRENT DRIPS OF PROPOFOL, FENTANYL RN CLINICAL COORDINATOR, NIMBEX. SUCTIONING RESULTED IN SCANT AMOUNT OF WHITE SECREATIONS. AMOR REMAINED PATIENT WITH A TOTAL OF 1500CC OUTPUT THIS SHIFT. TF CONTINUES AT 20CC/HR, SHE IS TOLERATING WELL, RESIDUALS HAVE BEEN 20CC AT MOST. VS WITH IN NORMAL LIMITS FOR PATIENT. WILL REPORT TO DAYSHIFT.
[2021-12-22 06:24] LABS: BAND PERCENT MAN 16 % (0-8); BASOPHILS PERCENT MAN 0 % (0-2); EOSINOPHILS PERCENT MAN 0 % (0-6); LYMPHOCYTES ABSOLUTE MAN 0.55 K/mm3 (0.84-5.20); LYMPHOCYTES PERCENT MAN 6 % (21-46); METAMYELOCYTE ABSOLUTE MAN 0.09 K/mm3 (0.00-0.00); METAMYELOCYTE PERCENT MAN 1 % (0-0); MONOCYTES PERCENT MAN 0 % (4-13); MYELOCYTE ABSOLUTE MAN 0.18 K/mm3 (0.00-0.00); MYELOCYTE PERCENT MAN 2 % (0-0); NEUTROPHILS ABSOLUTE MAN 8.48 K/mm3 (1.96-9.15); SEG NEUTROPHILS PERCENT MAN 75 % (41-73); TOTAL CELLS COUNTED 100
[2021-12-22 06:29] LABS: Alanine Aminotransfer (ALT/SGP 71 U/L (12-78); Albumin, Blood 1.7 g/dL (3.4-5.0); Albumin/Globulin Ratio 0.4 (0.8-1.8); Alk Phos 73 U/L (50-136); Anion Gap 9 mmol/L (6-16); Aspartate Aminotrans (AST/SGOT 42 U/L (12-37); Bilirubin, Total 0.3 mg/dL (0.1-1.0); Blood Urea Nitrogen 40 mg/dL (8-24); Bun/Creatinine Ratio 65.7 (12.0-20.0); CO2, Blood 29 mmol/L (21-32); Chloride, Blood 100 mmol/L (98-108); Creatinine, Blood 0.61 mg/dL (0.40-1.00); Globulin, Blood 4.1 g/dL (2.2-4.0); Glomerular Filtration Rate >60 (60-); Glucose, Blood 210 mg/dL (70-99); Potassium, Blood 4.7 mmol/L (3.5-5.5); Sodium, Blood 138 mmol/L (136-145); Total Protein, Blood 5.8 g/dL (6.4-8.2)
--- NOTE | 2021-12-22 12:47 | NUR ---
ASSUMED CARE OF PATIENT 0700: PRONED, UNRESPONSIVE ON NIMBEX/DEX, POWER LEVEL 3/10 FOR 2/4 FACIAL TWITCH, SATS WNL ON 60%, LUNGS CLEAR/DIM, AMOR DRAINING ADEQUATE URINE, TOLERATING TF RESIDUALS ONLY 10MLS, VSS, WILL CONTINUE TO MONITOR.
--- NOTE | 2021-12-22 17:42 | NUR ---
VILMA ORIENTATION D/T SEDATIN/PARALYTICS, 2/4 TIWTCH ON POWER LEVEL 3/10 FACIAL NERVE, GCS 3 ON PARALYTICS, NSR 60-80S, BP WNL, +2 PULSES, RLE +1 EDEMA, LUNGS CLEAR AT START THEN COARSE WITH SOME SUBTLE EXP WHEEZES LATER, VENT SETTINGS UNCHANGED, SUPINED AT 1600 TOELRATED WELL, HYPOACTIVE BOWELS, AMOR ADEQUATE UOP W/ LASIX, WILL CONTINUE TO MONITOR AND REPORT TO NIGHT RN.
--- NOTE | 2021-12-22 19:05 | NUR ---
Assumed care. Report received from neela ARZOLA. Pt in bed, sedated and paralyzed. Vented via ETT. Vent settings: AC/VC 24/350/14/80%. OG tube in place, TF running at 20 ml/hr. PICC in BELLA, PG in AZALIA. IV pumps running: propofol 40 mcg/kg/min, Nimbex 1.5 mcg/kg/min, Fentanyl IN SERVICE EDUCATION TEACHER 50 mcg/hr, NS 10 ml/hr. Geller catheter in place. VS stable, no acute needs at this time. Will continue to monitor.
[2021-12-23 06:27] LABS: Albumin, Blood 1.8 g/dL (3.4-5.0); Anion Gap 9 mmol/L (6-16); Blood Urea Nitrogen 47 mg/dL (8-24); Bun/Creatinine Ratio 67.4 (12.0-20.0); CO2, Blood 29 mmol/L (21-32); Chloride, Blood 96 mmol/L (98-108); Glomerular Filtration Rate >60 (60-); Glucose, Blood 250 mg/dL (70-99); Phosphorus, Blood 2.4 mg/dL (2.5-4.9); Potassium, Blood 3.8 mmol/L (3.5-5.5); Sodium, Blood 134 mmol/L (136-145)
--- NOTE | 2021-12-23 07:20 | NUR ---
Shift summary. Pt continues in bed, paralyzed and sedated. Vent settings unchanged this shift. TF running at goal rate, OG tube in place. PICC in AZALIA, PG BELLA, both WNL. IV pumps running propofol 40 mcg/kg/min, Fentanyl SUPERVISOR BEATER ROOM 50 mcg/hr, Nimbex 1.5 mcg/kg/min, NS 10 ml/hr. Geller catheter in place, 1500 out this shift. See shift assessment for further details, report given to neela ARZOLA.
--- NOTE | 2021-12-23 08:21 | NUR ---
ASSUMED CARE REPORT FROM YVONNE ARZOLA AT 0700. PT INTUBATED, SEDATED AND PARALYZED. VENT SETTINGS AC/VC 24/360/14/60%. LUNGS CLEAR. SCANT SECRETIONS. PROPOFOL AND FENTANYL GTT FOR PAIN AND SEDATION. BIS 40-60'S. NIMBEX GTT FOR PARALYTIC. T04 03/05, PT COMPLIANT c VENT. WILL COMPLETE PARALYTIC VACATION WHEN PT SUPINE. PT PLACED IN PRONE POSITION BY NOC SHIFT AT 0400. WILL REASSESS PRONE SCHEDULE c DR POPE. NO COUGH/GAG/SWALLOW PRESENT. NSR ON MONITOR, RATE 70-80'S. BP STABLE. ABD OBESE, ROUND, SOFT, BT X 4. TUBE FEEDS AT GOAL, MINIMAL RESIDUALS. BOWEL CARE GIVEN. AMOR PATENT, DRAINING CLEAR YELLOW URINE TO GRAVITY. PICC TO JOSUE, PG TO ARIADNE, DRESSINGS C/D/I. WILL CONTINUE TO MONITOR.
--- NOTE | 2021-12-23 17:12 | NUR ---
SHIFT SUMMARY PT REMAINED PRONE ENTIRE SHIFT, PLAN TO SUPINATE AT 0400, 12/24. LUNGS CLEAR. VENT SETTINGS UNCHANGED. MODERATE, THIN, CLEAR BLOOD TINGED SECRETIONS THROUGH ETT. COUGH REFLEX PRESENT. NIMBEX TITRATED OFF THIS SHIFT. INCREASED PROPOFOL AND FENTANYL FOR VENT COMPLIANCE. SB ON MONITOR, RATE 50-60'S. BP STABLE. TUBE FEEDS AT GOAL c MINIMAL RESIDUALS. AMOR PATENT, DRAINED 1300 ML CLEAR YELLOW URINE TO GRAVITY. PHOS REPLACED. WILL CONTINUE TO MONITOR UNTIL REPORT TO ONCOMING NURSE.
--- NOTE | 2021-12-23 19:10 | NUR ---
Assumed care. Report received from neela ARZOLA. Pt in bed, proned. On ventilator via ETT, Vent settings: AC/VC 24/360/14/60%. OG tube in place, TF at 20 ml/hr. PICC in AZALIA, PG BELLA. IV pumps: Propofol 45 mcg/kg/min, Fentanyl ENVELOPE PRESS OPERATOR 100 mcg/hr, NS 10 ml/hr. Geller catheter in place. SWB restraints in place. VS stable, no acute needs at this time. Will continue to monitor.
[2021-12-24 04:41] LABS: Albumin, Blood 2.1 g/dL (3.4-5.0); Anion Gap 9 mmol/L (6-16); Blood Urea Nitrogen 51 mg/dL (8-24); Bun/Creatinine Ratio 77.5 (12.0-20.0); CO2, Blood 31 mmol/L (21-32); Calcium, Blood 8.7 mg/dL (8.5-10.1); Chloride, Blood 96 mmol/L (98-108); Creatinine, Blood 0.66 mg/dL (0.40-1.00); Glomerular Filtration Rate >60 (60-); Glucose, Blood 212 mg/dL (70-99); Phosphorus, Blood 3.7 mg/dL (2.5-4.9); Potassium, Blood 3.9 mmol/L (3.5-5.5); Sodium, Blood 136 mmol/L (136-145)
--- NOTE | 2021-12-24 06:12 | NUR ---
Shift summary. Pt continue in bed, sedated and ventilated via ETT. Vent settings unchanged this shift. Pt unproned at 0400. TF at goal rate, 20 ml/hr. PICC AZALIA, PG BELLA, propofol running at 40 mcg/kg/min, Fentanyl BREAKER OPERATOR 100 mcg/hr, NS 10 ml/hr. Geller catheter in place, 2200 mls out this shift. VS stable throughout shift, see shift assessment for further details. Will continue to monitor and report off to dayshift RN.
--- NOTE | 2021-12-24 07:56 | NUR ---
ASSUMED CARE REPORT FROM YVONNE ARZOLA AT 0700. PT INTUBATED AND SEDATED. VENT SETTINGS AC/VC 24/360/14/60%. LUNGS CLEAR. SCANT SECRETIONS VIA ETT. COUGH/SWALLOW REFLEX PRESENT. FENTANYL AND PROPOFOL GTT FOR PAIN AND SEDATION. NO RESPONSE TO VERBAL/PAINFUL STIMULI. DOES NOT WITHDRAW EXT. CHEWS ON ORAL CARE TOOLS. SB ON MONITOR. RATE 45-55. BP STABLE. ABD ROUND, SOFT, NON TENDER. BT X 4. TUBE FEEDS AT GOAL, MINIMAL RESIDUALS. AMOR PATENT, DRAINING CLEAR YELLOW URINE TO GRAVITY. PICC TO JOSUE, PG TO ARIADNE, DRESSINGS C/D/I. WILL CONTINUE TO MONITOR.
--- NOTE | 2021-12-24 17:52 | NUR ---
SHIFT SUMMARY NO ACUTE CHANGES THIS SHIFT. PT REMAINED SUPINE PER DR POPE. WILL REASSESS PRONING IF FIO2>70%. VENT SETTINGS UNCHANGED, AC/VC 24/360/14/60%. LUNGS CLEAR. SCANT CLEAR SECRETIONS. COUGH/GAG/SWALLOW REFLEX. PROPOFOL TITRATED DOWN THIS SHIFT. PT CLOSES MOUTH c ORAL CARE. DOES NOT FOLLOW COMMANDS OR WITHDRAW EXT TO PAIN. DID NOT TITRATE PROPOFOL FURTHER D/T COUGHING EPISODES AND FOR VENT COMPLIANCE. SB, RATE 45-60'S. BP STABLE. TUBE FEEDS AT GOAL. AMOR PATENT, DRAINED 1150 ML OF CLEAR YELLOW URINE TO GRAVITY. WILL CONTINUE TO MONITOR UNTIL REPORT TO ONCOMING NURSE.
--- NOTE | 2021-12-24 19:11 | NUR ---
Assumed care. Report received from neela ARZOLA. Pt in bed, sedated and ventilated via ETT. Vent settings: AC/VC 24/360/14/60%. OG tube in place, TF at 20 ml/hr goal rate. PICC in AZALIA, PG BELLA, IV pump settings: Propofol 25 mcg/kg/min, Fentany CORONER TECHNICIAN 75 mcg/hr, NS 10 ml/hr. Geller catheter in place. SWB restraints in place. VS stable, no acute needs at this time, will continue to monitor.
[2021-12-25 04:10] LABS: Hematocrit 30.9 % (33.0-51.0); Hemoglobin 10.2 g/dL (11.5-16.0); Mean Corpuscular HGB 29.1 pg (26.0-34.0); Mean Corpuscular Volume 88 fL (80-100); Mean Platelet Volume 10.6 fL (9.1-12.4); Platelet Count 306 K/mm3 (150-400); RDW Coefficient Variation 14.3 % (11.7-14.2); RDW Standard Deviation 45.3 fL (35.1-46.3); White Blood Cell Count 13.76 K/mm3 (4.00-11.30)
[2021-12-25 04:29] LABS: Anion Gap 6 mmol/L (6-16); BAND PERCENT MAN 6 % (0-8); BASOPHILS PERCENT MAN 0 % (0-2); Blood Urea Nitrogen 57 mg/dL (8-24); Bun/Creatinine Ratio 76.9 (12.0-20.0); CO2, Blood 33 mmol/L (21-32); Calcium, Blood 8.5 mg/dL (8.5-10.1); Chloride, Blood 97 mmol/L (98-108); Creatinine, Blood 0.74 mg/dL (0.40-1.00); EOSINOPHILS PERCENT MAN 0 % (0-6); Glomerular Filtration Rate >60 (60-); Glucose, Blood 232 mg/dL (70-99); LYMPHOCYTES ABSOLUTE MAN 0.55 K/mm3 (0.84-5.20); LYMPHOCYTES PERCENT MAN 4 % (21-46); METAMYELOCYTE ABSOLUTE MAN 0.41 K/mm3 (0.00-0.00); METAMYELOCYTE PERCENT MAN 3 % (0-0); MONOCYTES ABSOLUTE MAN 0.82 K/mm3 (0.16-1.47); MONOCYTES PERCENT MAN 6 % (4-13); MYELOCYTE ABSOLUTE MAN 0.13 K/mm3 (0.00-0.00); MYELOCYTE PERCENT MAN 1 % (0-0); NEUTROPHILS ABSOLUTE MAN 11.83 K/mm3 (1.96-9.15); Phosphorus, Blood 3.1 mg/dL (2.5-4.9); Potassium, Blood 3.7 mmol/L (3.5-5.5); SEG NEUTROPHILS PERCENT MAN 80 % (41-73); Sodium, Blood 136 mmol/L (136-145); TOTAL CELLS COUNTED 100
--- NOTE | 2021-12-25 06:14 | NUR ---
Shift summary. Pt continues in bed, sedated and ventilated. Vent settings currently AC/VC 24/360/16/75%, peep increased and Fi02 increased during shift. TF at goal rate, 20 ml/hr. IV pump settings: propofol 30 mcg/kg/min, Fentanyl MEDICAL SUPERVISOR 100 mcg/hr, NS 10 ml/hr. Geller catheter in place, 700 out this shift. VS stable throughout shift, see shift assessment for further details. Will continue to monitor and report off to dayshift RN.
--- NOTE | 2021-12-25 08:00 | NUR ---
PT REMAINS INUBATED, SEDATED, AND RESTRAINED.PT GRIMACES AND COUGHS WITH NOXIOUS STIMULI. PROPOFOL DRIP @ 30 MCG/KG/MIN AND FENTANYL CONTINUOUS @ 100 MCG/HR. ECG SHOWS SB TO SR WITH RATED 50-70'S. PT IS AFEBRILE. SBP TRENDING 140'S. LUNGS DIMINISHED IN THE BASES. ETT TO VENT: AC 24, TV 360, PEEP 16, FIO2 75%. SATS IN 80'S AT TIMES. POSITIONAL ETT CUFF LEAK NOTED. REFOSITIONED AND INFLATED CUFF WITH 1 ML AIR. SUCTION PRODUCTIVE OF SMALL AMOUNT OF THICK, ZIMMER SECRETIONS. OGTF @ GOAL 20 CC/HR-5 CC RESIDUAL REFED. PT INCONTINENT OF SMALL, SOFT, BROWN STOOL. MARCIO CARE DONE AND CALAZIME APPLIED TO COCCYX/BUTTOCKS MILD REDNESS NOTED. SKIN IS PALE, COOL, AND SCATTERED BRUISING NOTED THROUGH OUT-ESPECIALLY TO UPPER EXTREMITIES AND ABDOMEN. AMOR TO BSD WITH SMALL AMOUNT OF YELLOW, URINE TO UROMETER-ROUTINE AM LASIX GIVEN. 1+ EDEMA NOTED TO UPPER EXTREMITIES. EXTREMITIES ELEVATED ON PILLOWS AND FOOT DROP BOOTS IN PLACE TO LOWER EXTREMITITES.
--- NOTE | 2021-12-25 09:10 | NUR ---
PT GRIMACING AND COUGHING. SATS 85%- MED WITH ATIVAN 2 MG IVP-SEE EMAR. SUCTION PRODUCTIVE OF SMALL AMOUNT OF THICK, ZIMMER PLUGS. FIO2 TITRATED UP TO 90% TO KEEP SATS>90%. RT AWARE.
--- NOTE | 2021-12-25 10:00 | NUR ---
DR. HERRERA IN TO SEE PT. STAT CH1V DONE. SATS 83-87% ON FIO2 100% AND PEEP 16. ETT ADVANCED AND RETAPED 25 @ GUMS. PROPOFOL DRIP TITRATED UP TO 50 MCG/KG/MIN, THEN PT PLACED IN PRONE POSITION. IMMEDIATELY, SATS RETURNED TO THE 90'S. PT TOLERATING VENILATION WELL, NO COUGHING OR ASYNCHRONY NOTED. PROPOFOL TITRATED DOWN TO 40 MCG/KG/MIN.
--- NOTE | 2021-12-25 12:00 | NUR ---
PT RESTING QUIETLY IN PRONE POSITION- ON VENT. PROPOFOL @ 40 MCG/KG/MIN AND FENTANYL @ 100 MCG/HR. TEMP 99.3. ECG SHOWS SR WITH RATE 50'S. BP STABLE. LUNGS REMAIN DIMINISHED IN THE BASES. SATS> 90% ON FIO2 90% PT CONTINUES TO TOLERATE TF WELL-MINIMAL RESIDUALS. AMOR OUTPUT ADEQUATE. REPOSITIONING PT HEAD AND EXTREMITIES EVERY 2 HOURS.
[2021-12-25] MEDS ORDERED: LISI5 PO (12:26)
[2021-12-25] MEDS ORDERED: TIZA4 PO (12:28)
[2021-12-25] MEDS ORDERED: ANASTROZOLE1 M7 PO (12:30)
[2021-12-25] MEDS ORDERED: LEVSOD150 PO (12:31)
[2021-12-25] MEDS ORDERED: ESCI20 PO (12:31)
[2021-12-25] MEDS ORDERED: GABA400 PO (12:31)
[2021-12-25] MEDS ORDERED: PRAZ5 PO (12:32)
[2021-12-25] MEDS ORDERED: MINIPRESS1 MG PO (12:33)
[2021-12-25] MEDS ORDERED: QUET25 PO (12:34)
[2021-12-25] MEDS ORDERED: Seroquel Xr300 MG PO (12:34)
[2021-12-25] MEDS ORDERED: TRAZ100 PO ×2 (12:39)
[2021-12-25] MEDS ORDERED: GENTEAL TEARS S10 GM BOTHEYES (12:45)
[2021-12-25] MEDS ORDERED: Ativan1 MG PO (12:46)
--- NOTE | 2021-12-25 16:00 | NUR ---
PT REMAINS PRONE. SYNCHRONOUS WITH VENT. SATS>90% ON FIO2 80% SUCTION PRODUCTIVE OF MODERATE AMOUNT OF THICK, YELLOW SPUTUM-SPECIMEN SENT.
--- NOTE | 2021-12-25 18:15 | NUR ---
PT REMAINS PRONE. SATS>90% ON FIO2 75% NO ACUTE DISTRESS NOTED AT THIS TIME.WILL REPORT TO ONCOMING SHIFT.
--- NOTE | 2021-12-25 19:47 | NUR ---
ASSUMPTION OF CARE RECEIVED REPORT FROM BING ARZOLA AT 1930, ASSUMED CARE OF PATIENT. PATIENT PRONED WITH HEAD TO TO THE RIGHT, INTUBATED WITH ETT 8.0 AND 25 AT THE GUMS. VENT SETTINGS AC/VC+ 24/360/75%/16 WITH 02 SATS ABOVE 93%. SEDATION OF PROPOFOL OF 40MCG/KG, AND FENTANYL AT 100 MCG/HR. VITALS STABLE. TF INFUSING VIA OG AT 20ML/HR. AMOR PATENT AND DRAINING CLEAR, YELLOW URINE. PATIENT TO BE PRONED UNTIL 1000 12/26 PER ORDERS. WILL REVIEW ADDITIONAL ORDERS AND TREAT PRESCRIBED.
[2021-12-26 03:39] LABS: Base Excess Venous 10.1 mmol/L; Bicarbonate Venous 31.9 mmol/L (24.0-30.0); PCO2 Venous 49.8 mmHg (38-42); PO2 Venous 35.1 mmHg (38-42); pH Blood Venous 7.45 (7.34-7.37)
[2021-12-26 04:01] LABS: Hematocrit 33.5 % (33.0-51.0); Hemoglobin 11.1 g/dL (11.5-16.0); Mean Corpuscular HGB 29.4 pg (26.0-34.0); Mean Corpuscular HGB Conc 33.1 g/dL (31.5-36.5); Mean Corpuscular Volume 89 fL (80-100); Mean Platelet Volume 10.4 fL (9.1-12.4); NRBC ABSOLUTE 0.02 K/mm3 (0.00-0.02); NRBC Auto 0.1 /100 WBC (0.0-0.2); Platelet Count 311 K/mm3 (150-400); RDW Coefficient Variation 14.5 % (11.7-14.2); RDW Standard Deviation 45.5 fL (35.1-46.3); Red Blood Cell Count 3.78 M/mm3 (3.80-5.20)
[2021-12-26 04:18] LABS: Albumin, Blood 2.3 g/dL (3.4-5.0); Anion Gap 8 mmol/L (6-16); Blood Urea Nitrogen 55 mg/dL (8-24); Bun/Creatinine Ratio 76.2 (12.0-20.0); CO2, Blood 32 mmol/L (21-32); Calcium, Blood 8.6 mg/dL (8.5-10.1); Chloride, Blood 97 mmol/L (98-108); Creatinine, Blood 0.72 mg/dL (0.40-1.00); Glomerular Filtration Rate >60 (60-); Glucose, Blood 239 mg/dL (70-99); Phosphorus, Blood 3.1 mg/dL (2.5-4.9); Potassium, Blood 3.6 mmol/L (3.5-5.5); Sodium, Blood 137 mmol/L (136-145); Triglycerides 229 mg/dL (30-160)
[2021-12-26 04:46] LABS: BAND PERCENT MAN 15 % (0-8); BASOPHILS PERCENT MAN 0 % (0-2); EOSINOPHILS PERCENT MAN 0 % (0-6); LYMPHOCYTES ABSOLUTE MAN 0.16 K/mm3 (0.84-5.20); LYMPHOCYTES PERCENT MAN 1 % (21-46); METAMYELOCYTE ABSOLUTE MAN 0.16 K/mm3 (0.00-0.00); METAMYELOCYTE PERCENT MAN 1 % (0-0); MONOCYTES ABSOLUTE MAN 0.32 K/mm3 (0.16-1.47); MONOCYTES PERCENT MAN 2 % (4-13); MYELOCYTE ABSOLUTE MAN 0.32 K/mm3 (0.00-0.00); MYELOCYTE PERCENT MAN 2 % (0-0); NEUTROPHILS ABSOLUTE MAN 15.41 K/mm3 (1.96-9.15); SEG NEUTROPHILS PERCENT MAN 79 % (41-73); TOTAL CELLS COUNTED 100
--- NOTE | 2021-12-26 06:05 | NUR ---
SHIFT SUMMARY VENT SETTINGS UNCHANGED. PATIENT PRONED THROUGH NIGHT. HEAD TURNED WITH RT AND 2-PERSON ASSIST. TF AT GOAL VIA OG. SEDATION RATES CONTINUE. AMOR PATENT AND DRAINING. VITALS STABLE. WILL CONTINUE TO MONITOR AND REPORT TO ONCOMING RN.
--- NOTE | 2021-12-26 08:00 | NUR ---
PT REMAINS INTUBATED, SEDATED, AND PRONE. PROPOFOL CONTINUES @ 40 MCG/KG/MIN AND FENTANYL 100 MCG/HR. ECG SHOWS SB.BP STABLE. LUNGS COARSE TO LEFT AND DIMINISHED IN THE BASES. ETT TO VENT:AC/VC+24, 360, PEEP 16, FIO2 60%-SATS>90% SCANT ETT SECRETIONS. PLAN TO UNPRONE PT @ 1000. PT TOLERATING OGTF WELL MINIMAL RESIDUAL. AMOR TO BSD WITH CLEAR, YELLOW URINE TO BSD. PT SKIN IS PALE AND INTERMITTENTLY DIAPHORETIC. SCATTERED BRUISING THROUGH OUT-ESPECIALLY TO UPPER EXTREMITIES AND ABDOMEN. DR. HERRERA IN TO SEE PT. PLAN TO CT CHEST ONCE PT SUPINE.
--- NOTE | 2021-12-26 10:00 | NUR ---
PT BATHED, THEN PLACE SUPINE-TOLERATED WELL. SATS>90% ON FIO2 60%. ONCE SUPINE, PT TAKEN TO CHEST PE STUDY. PT TRANSPORTED TO CT VIA BED WITH RT AND RN AT BEDSIDE. PT TOLERATED WELL.
--- NOTE | 2021-12-26 12:00 | NUR ---
FIO2 TITRATED UP TO 65% TO MAINTAIN SATS>90% PLAN TO PRONE PT LATER TODAY PER DR. HERRERA.
--- NOTE | 2021-12-26 13:06 | NUR ---
SATS TRENDING 85%-FIO2 INCREASED TO 75% TO MAINTAIN SATS>9O%.
--- NOTE | 2021-12-26 16:00 | NUR ---
PT REMAINS INTUBATED, SEDATED, AND RESTRAINED. NO NEURO CHANGES. ECG SHOWS SB WITH RATE 45-50'S. SBP TRENDING 90-120'S. MAP>60-65. MAINTAINS SATS>90% ON FIO2 75%-PLAN TO PRONE @ [address] HERRERA X 16 HOURS.
--- NOTE | 2021-12-26 18:44 | NUR ---
PT PLACED IN PRONE POSITION-TOLERATED WELL. SATS>90% ON FIO2 75%. PT OFF OF PROPOFOL BREIFLY DURING THIS POSITION CHANGE-PT OPENED EYES AND WAS TRACKING, BUT DID NOT MOVE HER EXTREMITIES OR FOLLOW COMMANDS. PROPOFOL RESUMED @ 40 MCG/KG/MIN. PT RESTING QUIETLY ON VENT AT THIS TIME.
--- NOTE | 2021-12-26 19:15 | NUR ---
ASSUMPTION OF CARE RECEIVED REPORT FROM BING ARZOLA. ASSUMED CARE OF PATIENT. PATIENT VENTILATED WITH PEEP 16 AND FIO2 75%. PATIENT CURRENTLY PRONED WITH HEAD TURNED RIGHT. VITALS STABLE. AMOR PATENT AND DRAINING CLEAR, YELLOW URINE. WILL REVIEW ORDERS AND TREAT PRESCRIBED.
[2021-12-27 03:25] LABS: Hematocrit 34.1 % (33.0-51.0); Hemoglobin 11.2 g/dL (11.5-16.0); Mean Corpuscular HGB 29.2 pg (26.0-34.0); Mean Corpuscular HGB Conc 32.8 g/dL (31.5-36.5); Mean Corpuscular Volume 89 fL (80-100); Mean Platelet Volume 10.6 fL (9.1-12.4); NRBC ABSOLUTE 0.02 K/mm3 (0.00-0.02); NRBC Auto 0.1 /100 WBC (0.0-0.2); Platelet Count 339 K/mm3 (150-400); RDW Coefficient Variation 14.6 % (11.7-14.2); Red Blood Cell Count 3.84 M/mm3 (3.80-5.20); White Blood Cell Count 16.14 K/mm3 (4.00-11.30)
[2021-12-27 03:41] LABS: Albumin, Blood 2.4 g/dL (3.4-5.0); Anion Gap 6 mmol/L (6-16); Blood Urea Nitrogen 54 mg/dL (8-24); Bun/Creatinine Ratio 75.9 (12.0-20.0); CO2, Blood 34 mmol/L (21-32); Calcium, Blood 8.8 mg/dL (8.5-10.1); Chloride, Blood 98 mmol/L (98-108); Creatinine, Blood 0.71 mg/dL (0.40-1.00); Glomerular Filtration Rate >60 (60-); Glucose, Blood 199 mg/dL (70-99); Phosphorus, Blood 2.7 mg/dL (2.5-4.9); Potassium, Blood 3.6 mmol/L (3.5-5.5); Sodium, Blood 138 mmol/L (136-145)
[2021-12-27 03:51] LABS: BAND PERCENT MAN 1 % (0-8); BASOPHILS PERCENT MAN 0 % (0-2); EOSINOPHILS PERCENT MAN 0 % (0-6); LYMPHOCYTES ABSOLUTE MAN 0.64 K/mm3 (0.84-5.20); LYMPHOCYTES PERCENT MAN 4 % (21-46); MONOCYTES PERCENT MAN 0 % (4-13); MYELOCYTE ABSOLUTE MAN 0.32 K/mm3 (0.00-0.00); MYELOCYTE PERCENT MAN 2 % (0-0); NEUTROPHILS ABSOLUTE MAN 15.17 K/mm3 (1.96-9.15); SEG NEUTROPHILS PERCENT MAN 93 % (41-73); TOTAL CELLS COUNTED 100
--- NOTE | 2021-12-27 06:18 | NUR ---
SHIFT SUMMARY NO ACUTE CHANGES. PATIENT PRONED THROUGH SHIFT WITH 3 PERSON TURNS, RT ASSISTED WITH HEAD REPOSITIONING. TF AT GOAL. SEDATION REMAINS AT FENTANYL 100MCG/HR AND PROPOFOL OF 35MCG/KG. VENT SETTINGS UNCHANGED WITH PEEP OF 16 AND FIO2 75%. VITALS STABLE. AMOR DRAINING CLEAR, YELLOW URINE. WILL CONTINUE TO MONITOR AND REPORT TO ONCOMING RN.
--- NOTE | 2021-12-27 07:59 | NUR ---
ASSUMED CARE REPORT FROM SHAREE ARZOLA AT 0700. PT INTUBATED AND SEDATED. VENT SETTINGS AC/VC+ 24/360/0.8/16/70%. LUNGS CLEAR. SCANT SECRETIONS THROUGH ETT. COUGH/GAG REFLEX PRESENT. FENTANYL AND PROPOFOL GTT FOR PAIN AND SEDATION. PT TOLERATING VENT WELL. CURRENTLY IN PRONE POSITION. PLAN TO SUPINE AT 0930. SR ON MONITOR, RATE 50-60'S. BP STABLE. ABD ROUND, SOFT, NON TENDER. BT X 4. TUBE FEEDS AT GOAL, 20 ML/HR c 30 ML FLUSH q4 HR. AMOR PATENT, DRAINING CLEAR YELLOW URINE TO GRAVITY. PICC TO LUE, PG TO RUE, WILL CHANGE DRESSING THIS SHIFT. WILL CONTINUE TO MONITOR.
[2021-12-27 11:36] LABS: PO2 Arterial 58.4 mmHg (80-100); pH Blood Arterial 7.49 (7.35-7.45)
--- NOTE | 2021-12-27 17:51 | NUR ---
SHIFT SUMMARY PT REMAINS INTUBATED AND SEDATED. VENT SETTINGS AC/VC+ 20/360/0.8/14/50%. RATE, PEEP, AND FIO2 DECREASED THIS SHIFT. PT SUPINATED AT 0930, PRONED AT 1730, PLAN TO REMAIN PRONE FOR 16 HOURS. LUNGS CLEAR. SCANT SECRETIONS. PROPOFOL AND FENTANYL GTT CONTINUE. PT SPONT OPENS EYES, DOES NOT TRACK. DOES NOT FOLLOW DIRECTIONS. TOLERATING VENT WELL. BP STABLE. SR, RATE 50-60'S. TUBE FEEDS CONTINUE AT GOAL. NO BM THIS SHIFT. AMOR PATENT, 900 ML CLEAR YELLOW URINE OUT THIS SHIFT. BED BATH COMPLETE THIS SHIFT. WILL CONTINUE TO MONITOR UNTIL REPORT TO ONCOMING NURSE.
--- NOTE | 2021-12-27 20:00 | NUR ---
ASSESSMENT/ASSUMED CARE PT INTUBATED AND ON [facility] VENT. VENT SETTINGS AC/VC+ 20/360/PEEP 14/55%. LUNGS CLEAR. ORAL CARE DONE. SUCTIONED SMALL AMT CLEAR SECRECTIONS. HEART RATE REGULAR, BP STABLE. BT+HYPOACTIVE. OG WITH TUBE FEED VITAL HP 1.0 NIC AT GOAL RATE 20ML/HR WITH WATER 30 ML Q4HR. RESIDUAL 5 ML REFED. AMOR CATH PATENT DRAINING YELLOW URINE. PT PRONE WITH HEAD TURNED TO RIGHT, RIGHT ARM/KNEE UP, AND LEFT ARM/LEG DOWN. POWER GLIDE TO RIGHT UPPER ARM, DRSG INTACT, SALINE LOCKED. PICC LINE TO LEFT UPPER ARM, DRSG INTACT. PROPOFOL AT 35 MCQ/KG/MIN, NS AT 10 ML/HR, AND FENTANYL ONLINE MERCHANDISING COORDINATOR 100 MCG/HR. WAITING FOR RT TO REPOSITION.
[2021-12-28 03:42] LABS: BASOPHILS ABSOLUTE AUTO 0.02 K/mm3 (0.00-0.23); BASOPHILS PERCENT AUTO 0 % (0-2); EOSINOPHILS ABSOLUTE AUTO 0.23 K/mm3 (0.00-0.68); EOSINOPHILS PERCENT AUTO 2 % (0-6); Hemoglobin 11.3 g/dL (11.5-16.0); IMMATURE GRAN ABSOLUTE AUTO 0.58 K/mm3 (0.00-0.10); IMMATURE GRAN PERCENT AUTO 4 % (0-1); LYMPHOCYTES ABSOLUTE AUTO 1.25 K/mm3 (0.84-5.20); LYMPHOCYTES PERCENT AUTO 9 % (21-46); MONOCYTES ABSOLUTE AUTO 0.41 K/mm3 (0.16-1.47); MONOCYTES PERCENT AUTO 3 % (4-13); Mean Corpuscular HGB 29.2 pg (26.0-34.0); Mean Corpuscular HGB Conc 32.3 g/dL (31.5-36.5); Mean Corpuscular Volume 90 fL (80-100); Mean Platelet Volume 10.2 fL (9.1-12.4); NEUTROPHILS ABSOLUTE AUTO 11.26 K/mm3 (1.96-9.15); NEUTROPHILS PERCENT AUTO 82 % (41-73); NRBC ABSOLUTE 0.02 K/mm3 (0.00-0.02); NRBC Auto 0.1 /100 WBC (0.0-0.2); Platelet Count 308 K/mm3 (150-400); RDW Standard Deviation 47.8 fL (35.1-46.3); Red Blood Cell Count 3.87 M/mm3 (3.80-5.20); White Blood Cell Count 13.75 K/mm3 (4.00-11.30)
[2021-12-28 04:01] LABS: Albumin, Blood 2.4 g/dL (3.4-5.0); Anion Gap 8 mmol/L (6-16); Blood Urea Nitrogen 57 mg/dL (8-24); CO2, Blood 32 mmol/L (21-32); Calcium, Blood 8.8 mg/dL (8.5-10.1); Chloride, Blood 99 mmol/L (98-108); Creatinine, Blood 0.77 mg/dL (0.40-1.00); Glomerular Filtration Rate >60 (60-); Glucose, Blood 163 mg/dL (70-99); Phosphorus, Blood 2.4 mg/dL (2.5-4.9); Potassium, Blood 2.9 mmol/L (3.5-5.5); Sodium, Blood 139 mmol/L (136-145); Triglycerides 302 mg/dL (30-160)
--- NOTE | 2021-12-28 06:24 | NUR ---
SHIFT SUMMARY PT CONT [facility]UB[facility] AND [facility]. VENT SETTINGS AC/VC+ 20/360/14/60%. INCREASED FIO2 FROM 55% TO 60% DURING THE NIGHT. PT CONT PRONE DURING THE NIGHT. REPOSITIONED FREQUENTLY. HEART RATE REGULAR, BP STABLE. TUBE FEED AT GOAL. BILAT SOFT WRIST RESTRAINTS ON. REPORT TO ON COMING NURSE
--- NOTE | 2021-12-28 08:50 | NUR ---
ASSUMED CARE REPORT FROM LORRAINE ARZOLA AT 0700. PT INTUBATED AND SEDATED. VENT SETTINGS AC/VC+ 20/360/0.8/14/55%. LUNGS CLEAR, SCANT SECRETIONS VIA ETT. COUGH/GAG REFLEX. SPONT OPENS EYES, DOES NOT FOLLOW COMMANDS. PROPOFOL AND FENTANYL GTT FOR PAIN AND SEDATION. PT IN PRONE POSITION. SR, RATE 60-70, BP STABLE. PLAN TO SUPINE AT 0930. ABD OBESE, SOFT, NON TENDER. BT X 4. TUBE FEEDS AT GOAL, MINIMAL RESIDUALS. AMOR PATENT, DRAINING CLEAR YELLOW URINE TO GRAVITY. WILL CONTINUE TO MONITOR.
[2021-12-28 13:56] LABS: Anion Gap 8 mmol/L (6-16); Blood Urea Nitrogen 51 mg/dL (8-24); Bun/Creatinine Ratio 76.9 (12.0-20.0); CO2, Blood 31 mmol/L (21-32); Calcium, Blood 8.5 mg/dL (8.5-10.1); Chloride, Blood 98 mmol/L (98-108); Creatinine, Blood 0.66 mg/dL (0.40-1.00); Glomerular Filtration Rate >60 (60-); Glucose, Blood 244 mg/dL (70-99); Potassium, Blood 3.2 mmol/L (3.5-5.5); Sodium, Blood 137 mmol/L (136-145)
--- NOTE | 2021-12-28 17:34 | NUR ---
SHIFT SUMMARY PT SUPINE AT 0930. NO PRONING THIS SHIFT PER DR HERRERA. WILL REASSESS NEED IN AM. VENT SETTINGS AC/VC+ 20/360/0.8/12/60% LUNGS CLEAR, MINIMAL SECRETIONS. PT OPENS EYES SPONT, DOES NOT FOLLOW COMMANDS. PROPOFOL AND FENTANYL GTT. TUBE FEEDS AT GOAL, MINIMAL RESIDUALS. AMOR PATENT, 1100 ML CLEAR YELLOW URINE OUT. PICC TO AUDELIAE, PG TO LUE, DRESSINGS C/D/I. WILL CONTINUE TO MONITOR UNTIL REPORT TO ONCOMING NURSE.
--- NOTE | 2021-12-28 19:10 | NUR ---
ASSESSMENT/ASSUMED CARE PT CONT INTUBATED AND ON [facility] VENT. PT OPENS EYES TO VERBAL STIMULI, BUT NOT FOLLOWING INSTRUCTIONS. BILAT SOFT WRIST RESTRAINTS ON. LUNGS CLEAR ON VENT SETTINGS AC/VC 20/360/12/60%. RT TO CHANGE ET TUBE TO 25 CM, CURRENTLY AT 23 CM. SUCTIONED SMALL AMT YELLOW SECRECTIONS VIA ET TUBE. HEART RATE REGULAR, BP STABLE. BT+HYPOACTIVE. ABD SOFT WITH BRUISING TO LOWER ABD. OG WITH TUBE FEED VITAL HP 1.0 NIC AT GOAL RATE 20 ML/HR, WATER 30 ML Q4HR. RESIDUAL 35 ML REFED. AMOR CATH PATENT DRAINING YELLOW URINE. PT TO RECEIVE LASIX TONIGHT. PICC LINE TO LEFT UPPER ARM WITH PROPOFOL AT 25 MCQ/KG/MIN, NS AT 10 ML/HR AND FENTANYL 100 MCQ/HR. SITE CLEAR AND DRSG INTACT. POWER GLIDE RIGHT UPPER ARM SALINE LOCKED, SITE CLEAR, DRSG INTACT. FLUSHED WITHOUT DIFFICULTY. ORAL CARE DONE. FOOT DROP BOOTS ON.
--- NOTE | 2021-12-28 20:59 | NUR ---
DECREASED SPO2 SPO2 DOWN TO 80%. SUCTIONED ET TUBE WITH NO RESULTS. INCREASED FIO2 TO 100%. RT NOTIFIED. ET TUBE RETAPED. SPO2 UP TO 96%.
--- NOTE | 2021-12-28 21:27 | NUR ---
REPORT GIVEN TO DENYS MOROCHO RN
--- NOTE | 2021-12-28 21:30 | NUR ---
Assumed care after report recv'd assessment completed, agree with shift assessment. opens eyes with verbal and physical stimuli, does not track or attempt to follow directions. O2 sats dipping into 80's. attempted to suction with no return.
[2021-12-29 04:24] LABS: BASOPHILS ABSOLUTE AUTO 0.03 K/mm3 (0.00-0.23); BASOPHILS PERCENT AUTO 0 % (0-2); EOSINOPHILS ABSOLUTE AUTO 0.28 K/mm3 (0.00-0.68); EOSINOPHILS PERCENT AUTO 2 % (0-6); Hematocrit 31.6 % (33.0-51.0); Hemoglobin 10.1 g/dL (11.5-16.0); IMMATURE GRAN ABSOLUTE AUTO 0.49 K/mm3 (0.00-0.10); IMMATURE GRAN PERCENT AUTO 4 % (0-1); LYMPHOCYTES ABSOLUTE AUTO 0.94 K/mm3 (0.84-5.20); LYMPHOCYTES PERCENT AUTO 7 % (21-46); MONOCYTES ABSOLUTE AUTO 0.24 K/mm3 (0.16-1.47); MONOCYTES PERCENT AUTO 2 % (4-13); Mean Corpuscular HGB 28.9 pg (26.0-34.0); Mean Corpuscular Volume 90 fL (80-100); Mean Platelet Volume 10.4 fL (9.1-12.4); NEUTROPHILS ABSOLUTE AUTO 11.17 K/mm3 (1.96-9.15); NEUTROPHILS PERCENT AUTO 85 % (41-73); Platelet Count 266 K/mm3 (150-400); RDW Coefficient Variation 15.3 % (11.7-14.2); RDW Standard Deviation 49.1 fL (35.1-46.3); White Blood Cell Count 13.15 K/mm3 (4.00-11.30)
[2021-12-29 04:39] LABS: Albumin, Blood 2.1 g/dL (3.4-5.0); Anion Gap 5 mmol/L (6-16); Blood Urea Nitrogen 46 mg/dL (8-24); CO2, Blood 33 mmol/L (21-32); Calcium, Blood 8.6 mg/dL (8.5-10.1); Chloride, Blood 101 mmol/L (98-108); Creatinine, Blood 0.71 mg/dL (0.40-1.00); Glomerular Filtration Rate >60 (60-); Glucose, Blood 144 mg/dL (70-99); Phosphorus, Blood 2.3 mg/dL (2.5-4.9); Potassium, Blood 3.2 mmol/L (3.5-5.5); Sodium, Blood 139 mmol/L (136-145)
--- NOTE | 2021-12-29 06:11 | NUR ---
FiO2 remains at 100%, desats down to lower 80's with little movement or coughing. Recovers slowly. Blood pressure with periods of hypotension, adjusted diprovan to compensate. Recovered to WNL. Will open eyes but does not track, does not follow directions. Fent drip continues at 100 mcq/hr.
--- NOTE | 2021-12-29 14:39 | NUR ---
Spiritual Care Visit. Pt. laying on side. Mostly non-responsive. Prayed for pt.
--- NOTE | 2021-12-29 16:50 | NUR ---
SHIFT SUMMARY PT REMAINS INTUBATED AND SEDATED. VENT SETTINGS AC 20, TV 360, PEEP 12, FIO2 TITRATED DOWN TO 80%. PT PRONED AT THIS TIME. IMMEDIATE IMPROVEMENT TO SPO2 UPON PRONING THIS SHIFT. PT REMAINS SEDATED WITH PROPOFOL AT 35 MCG/KG/MIN AND FENTANYL 100 MCG/HR. PICC TO AZALIA REMAINS C/D/I. OGT IN PLACE WITH TF INFUSING AT GOAL RATE. AMOR REMAINS IN PLACE WITH CLEAR YELLOW OUTPUT NOTED. VITAL SIGNS STABLE. PT OPENS EYES TO VERBAL STIMULI, BUT DOES NOT FOLLOW ANY COMMANDS. SBW RESTRAINTS REMAIN IN PLACE. WILL CONTINUE TO MONITOR AND REPORT OFF TO ONCOMING RN.
--- NOTE | 2021-12-29 19:15 | NUR ---
ASSUMPTION OF CARE PT REMAINS INTUBATED WITH VENT SETTINGS AC/VC 20/360/12/60%, TITRATED TO 50% BY RT. RECEIVING PROPOFOL 35MCG/KG/MIN AND FENTANYL 100MCG/HR. PT REMAINS PRONED AT THIS TIME, PLAN TO REPOSITION SUPINE IN EARLY AM. TUBE FEEDING INFUSING AT GOAL RATE. AMOR REMAINS IN PLACE DRAINING YELLOW URINE. SEE SHIFT ASSESSMENT.
[2021-12-30 04:37] LABS: BASOPHILS ABSOLUTE AUTO 0.03 K/mm3 (0.00-0.23); BASOPHILS PERCENT AUTO 0 % (0-2); EOSINOPHILS ABSOLUTE AUTO 0.31 K/mm3 (0.00-0.68); EOSINOPHILS PERCENT AUTO 3 % (0-6); Hematocrit 31.6 % (33.0-51.0); Hemoglobin 10.3 g/dL (11.5-16.0); IMMATURE GRAN ABSOLUTE AUTO 0.42 K/mm3 (0.00-0.10); IMMATURE GRAN PERCENT AUTO 4 % (0-1); LYMPHOCYTES ABSOLUTE AUTO 0.86 K/mm3 (0.84-5.20); LYMPHOCYTES PERCENT AUTO 8 % (21-46); MONOCYTES ABSOLUTE AUTO 0.22 K/mm3 (0.16-1.47); MONOCYTES PERCENT AUTO 2 % (4-13); Mean Corpuscular HGB 29.7 pg (26.0-34.0); Mean Corpuscular HGB Conc 32.6 g/dL (31.5-36.5); Mean Corpuscular Volume 91 fL (80-100); Mean Platelet Volume 10.2 fL (9.1-12.4); NEUTROPHILS ABSOLUTE AUTO 8.82 K/mm3 (1.96-9.15); NEUTROPHILS PERCENT AUTO 83 % (41-73); Platelet Count 278 K/mm3 (150-400); RDW Coefficient Variation 15.5 % (11.7-14.2); RDW Standard Deviation 49.9 fL (35.1-46.3); Red Blood Cell Count 3.47 M/mm3 (3.80-5.20); White Blood Cell Count 10.66 K/mm3 (4.00-11.30)
[2021-12-30 05:05] LABS: Albumin, Blood 2.2 g/dL (3.4-5.0); Anion Gap 7 mmol/L (6-16); Blood Urea Nitrogen 42 mg/dL (8-24); Bun/Creatinine Ratio 68.4 (12.0-20.0); CO2, Blood 33 mmol/L (21-32); Calcium, Blood 8.6 mg/dL (8.5-10.1); Chloride, Blood 100 mmol/L (98-108); Creatinine, Blood 0.61 mg/dL (0.40-1.00); Glomerular Filtration Rate >60 (60-); Glucose, Blood 139 mg/dL (70-99); Phosphorus, Blood 2.2 mg/dL (2.5-4.9); Sodium, Blood 140 mmol/L (136-145); Triglycerides 195 mg/dL (30-160)
--- NOTE | 2021-12-30 06:23 | NUR ---
SHIFT SUMMARY PT REMAINS INTUBATED WITH VENT SETTINGS AC/VC 20/360/12/60%. PT CONINUES TO RECEIVING FENTANYL CREDIT CONTROL OFFICER 100MCG/HR AND PROPOFOL 30MCG/KG/MIN. TUBE FEEDING INFUSING AT GOAL RATE WITH MINIMAL RESIDUALS THIS SHIFT. AMOR REMAINS IN PLACE DRAINING CLOUDY/YELLOW/FOUL ODORED URINE. SHIFT OUTPUT 850ML. PT PLACED SUPINE AT 0300. PT DESATURATED TO 80S AND TOOK SEVERAL MINUTES TO RECOVER. PT TOLERATING WELL NOW WITH SPO2 >93%. POTASSIUM 3.0 DURING AM LABS. CALL PLACED TO HOSPITALIST, RECEIVED ORDER FOR 60MEQ POTASSIUM CHLORIDE. WILL REPORT TO ONCOMING RN.
[2021-12-30 09:13] LABS: Source, Urine Foley catheter
[2021-12-30 09:19] LABS: Appearance, Urine Clear (Clear); Bilirubin, Urine Neg (Neg); Blood, Urine Neg (Neg); Color, Urine Yellow (P-Yellow); Glucose Qualitative, Urine Neg (Neg); Ketones, Urine Neg (Neg); Leukocyte Esterase, Urine 1+ (Neg); Nitrite, Urine Pos (Neg); Protein, Urine 1+ (Neg); Specific Gravity, Urine 1.015 (1.003-1.022); Urobilinogen, Urine NORM (Normal)
[2021-12-30 09:41] LABS: Bacteria Many /hpf; Red Blood Cells, Urine 0-2 /hpf (0-2); Squamous Epithelial Cells Few /hpf (Few)
--- NOTE | 2021-12-30 17:08 | NUR ---
SHIFT SUMMARY PT REMAINS INTUBATED AND SEDATED. PT PRONED THIS SHIFT AT 1200. PT VENT SETTINGS AC 20, TV 360, PEEP 12, FIO2 TITRATED DOWN TO 50%. PT REMAINS SEDATED WITH PROPOFOL AT 30 MCG/KG/MIN AND FENTANYL AT 100 MCG/HR. PICC TO AZALIA REMAINS C/D/I. NS INFUSING TKO. OGT REMAINS IN PLACE WITH TF INFUSING AT GOAL RATE. AMOR REMAINS IN PLACE WITH YELLOW URINE OUTPUT NOTED. VITAL SIGNS HAVE REMAINED STABLE. SBW RESTRAINTS REMAIN IN PLACE. WILL CONTINUE TO MONITOR AND REPORT OFF TO ONCOMING RN.
--- NOTE | 2021-12-30 19:00 | NUR ---
ASSUMPTION OF CARE PT REMAINS INTUBATED WITH VENT SETTINGS AC/VC 16/360/12/55%. PT RECEIVING PROPOFOL 30MCG/KG/MIN AND FENTANYL 100MCG/HR. TUBE FEEDING INFUSING AT GOAL RATE, ZERO RESIDUALS. AMOR DRAINING CLOUDY/YELLOW URINE. PT REMAINS PRONED, PLAN TO SUPINE AT 0400. SEE SHIFT ASSESSMENT.
[2021-12-31 03:37] LABS: BASOPHILS ABSOLUTE AUTO 0.05 K/mm3 (0.00-0.23); BASOPHILS PERCENT AUTO 1 % (0-2); EOSINOPHILS ABSOLUTE AUTO 0.41 K/mm3 (0.00-0.68); EOSINOPHILS PERCENT AUTO 4 % (0-6); IMMATURE GRAN PERCENT AUTO 4 % (0-1); LYMPHOCYTES ABSOLUTE AUTO 1.12 K/mm3 (0.84-5.20); LYMPHOCYTES PERCENT AUTO 10 % (21-46); MONOCYTES ABSOLUTE AUTO 0.29 K/mm3 (0.16-1.47); MONOCYTES PERCENT AUTO 3 % (4-13); Mean Corpuscular HGB 29.5 pg (26.0-34.0); Mean Corpuscular HGB Conc 32.3 g/dL (31.5-36.5); Mean Corpuscular Volume 91 fL (80-100); Mean Platelet Volume 10.3 fL (9.1-12.4); NEUTROPHILS ABSOLUTE AUTO 8.59 K/mm3 (1.96-9.15); NEUTROPHILS PERCENT AUTO 79 % (41-73); Platelet Count 262 K/mm3 (150-400); RDW Coefficient Variation 15.7 % (11.7-14.2); Red Blood Cell Count 3.39 M/mm3 (3.80-5.20); White Blood Cell Count 10.86 K/mm3 (4.00-11.30)
[2021-12-31 04:11] LABS: Albumin, Blood 2.2 g/dL (3.4-5.0); Anion Gap 5 mmol/L (6-16); Blood Urea Nitrogen 46 mg/dL (8-24); Bun/Creatinine Ratio 69.5 (12.0-20.0); CO2, Blood 34 mmol/L (21-32); Calcium, Blood 8.6 mg/dL (8.5-10.1); Chloride, Blood 102 mmol/L (98-108); Creatinine, Blood 0.66 mg/dL (0.40-1.00); Glomerular Filtration Rate >60 (60-); Glucose, Blood 128 mg/dL (70-99); Phosphorus, Blood 2.5 mg/dL (2.5-4.9); Potassium, Blood 3.3 mmol/L (3.5-5.5); Sodium, Blood 141 mmol/L (136-145)
--- NOTE | 2021-12-31 06:03 | NUR ---
SHIFT SUMMARY PT REMAINS INTUBATED WITH VENT SETTINGS AC/VC+ 20/360/12/65%. PT PLACED SUPINE AT 0400 AND TOLERATED WELL. PT RECEIVING PROPOFOL 30MCG/KG/MIN. PT OCCASIONALLY OPENS EYES BUT DOES NOT FOLLOW COMMANDS. TUBE FEEDING INFUSING AT GOAL RATE VIA OGT WITH MINIMAL RESIDUALS. AMOR IN PLACE DRAINING CLOUDY/YELLOW/FOUL ODORED URINE. SHIFT OUTPUT OF 1175ML. HOSPITALIST NOTIFIED OF AM LABS, ORDER RECEIVED FOR KCL THAT IS INFUSING. WILL REPORT TO ONCOMING RN.
--- NOTE | 2021-12-31 17:10 | NUR ---
SHIFT SUMMARY NO ACUTE CHANGES THIS SHIFT. PT REMAINS INTUBATED AND SEDATED. VENT SETTINGS AC 20, TV 360, PEEP 12, FIO2 65% AT THIS TIME. PT PRONED THIS SHIFT, IMMEDIATE IMPROVEMENT IN SPO2 NOTED. PICC TO AZALIA REMAINS C/D/I. PT SEDATED WITH PROPOFOL AT 30 MCG/KG/MIN AND FENTANYL FINGER LIFT OPERATOR AT 100 MCG/HR. NS INFUSING TKO. OGT REMAINS IN PLACE WITH TF INFUSING AT GOAL RATE. MINIMAL RESIDUALS NOTED. AMOR REMAINS IN PLACE WITH CLEAR YELLOW OUTPUT NOTED. SBW RESTRAINTS REMAIN IN PLACE. VITAL SIGNS HAVE REMAINED STABLE. PT FURROWS BROW TO NOXIOUS STIMULI AND ORAL CARE. PT CAREGIVER UPDATED VIA PHONE THIS SHIFT. WILL CONTINUE TO MONITOR AND REPORT OFF TO ONCOMING RN.
[2022-01-01 04:45] LABS: BASOPHILS ABSOLUTE AUTO 0.04 K/mm3 (0.00-0.23); BASOPHILS PERCENT AUTO 0 % (0-2); EOSINOPHILS ABSOLUTE AUTO 0.36 K/mm3 (0.00-0.68); EOSINOPHILS PERCENT AUTO 4 % (0-6); Hemoglobin 10.3 g/dL (11.5-16.0); IMMATURE GRAN ABSOLUTE AUTO 0.35 K/mm3 (0.00-0.10); IMMATURE GRAN PERCENT AUTO 4 % (0-1); LYMPHOCYTES PERCENT AUTO 11 % (21-46); MONOCYTES ABSOLUTE AUTO 0.28 K/mm3 (0.16-1.47); MONOCYTES PERCENT AUTO 3 % (4-13); Mean Corpuscular HGB Conc 31.2 g/dL (31.5-36.5); Mean Corpuscular Volume 93 fL (80-100); Mean Platelet Volume 10.3 fL (9.1-12.4); NEUTROPHILS ABSOLUTE AUTO 6.97 K/mm3 (1.96-9.15); NEUTROPHILS PERCENT AUTO 78 % (41-73); Platelet Count 245 K/mm3 (150-400); RDW Coefficient Variation 15.9 % (11.7-14.2); RDW Standard Deviation 53.4 fL (35.1-46.3); Red Blood Cell Count 3.55 M/mm3 (3.80-5.20)
[2022-01-01 05:04] LABS: Albumin, Blood 2.2 g/dL (3.4-5.0); Anion Gap 5 mmol/L (6-16); Blood Urea Nitrogen 43 mg/dL (8-24); Bun/Creatinine Ratio 70.7 (12.0-20.0); CO2, Blood 33 mmol/L (21-32); Calcium, Blood 8.9 mg/dL (8.5-10.1); Chloride, Blood 105 mmol/L (98-108); Creatinine, Blood 0.61 mg/dL (0.40-1.00); Glomerular Filtration Rate >60 (60-); Glucose, Blood 127 mg/dL (70-99); Magnesium, Blood 2.2 mg/dL (1.6-2.4); Phosphorus, Blood 2.5 mg/dL (2.5-4.9); Potassium, Blood 3.2 mmol/L (3.5-5.5); Sodium, Blood 143 mmol/L (136-145)
--- NOTE | 2022-01-01 06:04 | NUR ---
SHIFT SUMMARY PT REMAINS INTUBATED WITH VENT SETTINGS AC/VC+ 20/360/12/70%. PT PLACED SUPINE AT 0400 AND TITRATED FIO2 UP. PT RECEIVING PROPOFOL 20MCG/KG/MIN, FENTANYL 100MCG/HR AND NS TKO. TUBE FEEDING INFUSING AT GOAL RATE VIA OGT WITH MINIMAL RESIDUALS. AMOR IN PLACE DRAINING YELLOW/CLOUDY URINE WITH FOUL ODOR. SHIFT OUTPUT OF 1250ML. AM LABS REFLECT POTASSIUM 3.2. HOSPITALIST NOTIFIED AND RECEIVED ORDER FOR KCL. SBP DECREASED TO 80S-90S, HR UNCHANGED. WILL REPORT TO ONCOMING RN.
--- NOTE | 2022-01-01 07:15 | NUR ---
ASSUMPTION OF CARE RECEIVED REPORT FROM ESTIVEN ARZOLA, ASSUMED CARE OF PATIENT. PATIENT IS INTUBATED WITH VENT SETTINGS AC/VC 20/350/12/65%. SATS BETWEEN 88-91%. PATIENT SUPINE. SEDATED WITH PROPOFOL AT 15MCG/KG AND FENTANYL 100MCG/HR. PATIENT RESPONDING TO VERBAL STIMULI, ATTEMPTS TO OPEN EYES BUT DOES NOT FOLLOW COMMANDS. STRONG COUGH AND GAG NOTED. TF AT GOAL OF 20ML/HR WITH NO RESIDUALS. AMOR PATENT AND DRAINING CLOUDY, YELLOW URINE. VITAL STABLE AT THIS TIME. WILL REVIEW ORDERS AND TREAT PRESCRIBED.
--- NOTE | 2022-01-01 13:12 | NUR ---
PRONING AT [address] GRANT REGARDING PRONING SCHEDULE. CURRENT PLAN IS TO KEEP PATIENT SUPINE TODAY AND MONITOR PATIENT'S RESPONSE AND PROGRESS. WILL RESUME PRONING IF NEEDED WITH DR. GRANT'S APPROVAL.
--- NOTE | 2022-01-01 18:33 | NUR ---
SHIFT SUMMARY NO ACUTE CHANGES THROUGH SHIFT. VENT SETTINGS REMAIN WITH PEEP OF 12 AND FIO2 65%, SATS BETWEEN 88-94%. MINIMAL SECRETIONS SUCTIONED VIA ORALLY. NO RESIDUALS FROM TF. SEDATION INCREASED AT START OF SHIFT FOR AGITATION AND DESATING EPISODE. REVIEWED WITH DR. RUDY BURKETTING, WILL KEEP PATIENT SUPINE UNLESS THEIR IS AN ACUTE CHANGE. UPDATE GIVEN TO PATIENT'S CAREGIVER. WILL CONTINUE TO MONITOR AND REPORT TO ONCOMING RN.
[2022-01-02 04:02] LABS: BASOPHILS ABSOLUTE AUTO 0.04 K/mm3 (0.00-0.23); BASOPHILS PERCENT AUTO 0 % (0-2); EOSINOPHILS ABSOLUTE AUTO 0.26 K/mm3 (0.00-0.68); EOSINOPHILS PERCENT AUTO 3 % (0-6); Hematocrit 31.8 % (33.0-51.0); Hemoglobin 10.1 g/dL (11.5-16.0); IMMATURE GRAN ABSOLUTE AUTO 0.46 K/mm3 (0.00-0.10); IMMATURE GRAN PERCENT AUTO 5 % (0-1); LYMPHOCYTES ABSOLUTE AUTO 1.12 K/mm3 (0.84-5.20); LYMPHOCYTES PERCENT AUTO 11 % (21-46); MONOCYTES ABSOLUTE AUTO 0.22 K/mm3 (0.16-1.47); MONOCYTES PERCENT AUTO 2 % (4-13); Mean Corpuscular HGB 29.5 pg (26.0-34.0); Mean Corpuscular HGB Conc 31.8 g/dL (31.5-36.5); Mean Corpuscular Volume 93 fL (80-100); Mean Platelet Volume 10.2 fL (9.1-12.4); NEUTROPHILS ABSOLUTE AUTO 7.72 K/mm3 (1.96-9.15); NEUTROPHILS PERCENT AUTO 79 % (41-73); NRBC ABSOLUTE 0.02 K/mm3 (0.00-0.02); NRBC Auto 0.2 /100 WBC (0.0-0.2); Platelet Count 242 K/mm3 (150-400); RDW Coefficient Variation 16.1 % (11.7-14.2); RDW Standard Deviation 53.6 fL (35.1-46.3); Red Blood Cell Count 3.42 M/mm3 (3.80-5.20); White Blood Cell Count 9.82 K/mm3 (4.00-11.30)
[2022-01-02 04:21] LABS: Albumin, Blood 2.2 g/dL (3.4-5.0); Anion Gap 4 mmol/L (6-16); Blood Urea Nitrogen 43 mg/dL (8-24); Bun/Creatinine Ratio 60.4 (12.0-20.0); CO2, Blood 33 mmol/L (21-32); Calcium, Blood 8.8 mg/dL (8.5-10.1); Chloride, Blood 107 mmol/L (98-108); Creatinine, Blood 0.71 mg/dL (0.40-1.00); Glomerular Filtration Rate >60 (60-); Glucose, Blood 101 mg/dL (70-99); Potassium, Blood 3.1 mmol/L (3.5-5.5); Sodium, Blood 144 mmol/L (136-145)
--- NOTE | 2022-01-02 06:46 | NUR ---
AROUND 0330, PATIENT STARTED COUGHING OVER VENT AND WAS DESATING SO I WENT INTO ROOM TO SUCTION. LARGE AMOUNTS OF SECRETIONS WERE BROUGHT UP AFTER OUR BATH AND I GOT A LOT OUT WELL THE RT. PATIENT STARTED HAVING LOW ETCO2 ON THE MONITOR, DESATING FURTHER, AND HAVING LOW TIDAL VOLUMES. RT-ALISON CALLED A BACK UP RT TO HAVE A SECOND LOOK AFTER US BOTH BEING IN THE ROOM FOR ABOUT 20-30MINS ALEADY. RT X2 AT BEDSIDE AND PATIENT CONTINUES TO DESAT AND HAVE LOW TV REGARDLESS OF ADJUSTMENTS MADE, LAVAGING, AND ANYTHING WE COULD THINK TO TRY. PROPOFOL DOSE WAS DOUBLED FROM 35MCG/KG/HR TO 60 AND WAS STILL COUGHING OVER VENT. 2MG ATIVAN GIVEN AND STILL COUGHING/DESATING. PATIENT WAS GETTING DANGEROUSLY LOW AND WE GOT DOWN ALL THE WAY TO 35% SPO2. RT AND I TURNED PATIENT ONTO SIDE UNTIL WE COULD GET SOME HELP IN THE ROOM. CHARGE NURSE PRADIP NOTIFIED OF CONCERNS AND NEEDING AN XRAY AND PRONE THERAPY INITIATED IMMEDIATELY. XRAY DONE. PATIENT PRONED. NIMBEX BOLUS GIVEN AND DRIP STARTED. RT MADE VENT CHANGES AND THEY WENT FROM 12 TO 16 ON PEEP. AFTER PATIENT WAS PRONED/PARALYZED AND ADEQUATLEY SEDATED, DR. GRANT CALLED TO MAKE AWARE OF EVENTS. HE WAS HAPPY WITH OUT VENT CHANGES SO WE LEFT HER THERE. SHE IS 20/360/16/100%.
--- NOTE | 2022-01-02 07:20 | NUR ---
DR. CASTRO CALLED TO CONFIRM ETT PLACEMENT. IT WAS DOWN TOO FAR AND IT NEEDED TO BE PULLED OUT 3CM. PATIENT RE-SUPINED, ETT PULLED BACK 3CM AND IS NOW 22@GUMS. HOLISTER ALSO CHANGED BEFORE RE-PRONING. ANOTHER XRAY TAKEN AND DR. CASTRO HAPPY WITH PLACEMENT FOR NOW. PATIENT RE-PRONED AT [id number]
--- NOTE | 2022-01-02 08:00 | NUR ---
ASSUMED CARE OF PT, REPORT RCV'D FROM DARIUSZ DAVID. PT INTUBATED, SEDATED AND PARALYZED. VENT SETTINGS AT START OF SHIFT 20/360/16/90%, RT DECREASED PEEP TO 14 AND FIO2 DECREASED TO 75%. SATS REMAIN>90%. PT SEDATED ON PROPOFOL 40 MCG/KG/MIN AND FENTANYL GTT 100 MCG/HR. BIS MONITOR 50-60. NIMBEX @ 2 MCG/KG/MIN, 0-1 OUT OF 4 TOF, WILL TITRATE DOWN/OFF ABLE. PT PRONED AT 0500 THIS AM, PER MD PT TO BE PRONED FOR 16 HOURS (SEE NURSE NOTIFY). AMOR PATENT AND DRAINING TO GRAVITY. SEE FULL SHIFT ASSESSMENT.
--- NOTE | 2022-01-02 12:20 | NUR ---
Spiritual Care visit. Pt. is face downon bed, and is unresponsive. Prayed a pastoral blessing over the pt.
--- NOTE | 2022-01-02 15:47 | NUR ---
NIMBEX TURNED OFF, FENTANYL GTT TURNED DOWN TO 50 MCG/HR, PROPOFOL @ 35 MCG/KG/MIN. PEEP DECREASED TO 12, FI02 45% CURRENT SATS 95%.
--- NOTE | 2022-01-02 16:56 | NUR ---
SHIFT SUMMARY PT REMAINS INTUBATED AND SEDATED. VENT SETTINGS AC 20/360/12/45%. PROPOFOL @ 40 MCG/KG/MIN. PT REMAINS PRONED, UNRESPONSIVE TO VERBAL STIMULATION. FENTANYL GTT @ 50 MCG/HR. VSS T/O SHIFT. SEE PREVIOUS NOTES FROM THIS SHIFT. WILL REPORT TO ONCOMING NURSE.
--- NOTE | 2022-01-02 17:55 | NUR ---
ASSUMED CARE OF PATIENT 1700: VILMA ORINTATION FULLY, SEDATED PROP/FENT, WITHDRAWS, PRONED SINCE 399, PUPILS 3MM SLUGISH, NSR 70S, BP WNL, VENTED 45% W/ PEEP 12, 8.0 22 AT THE GUMS, UOP ADEQUATE CLEAR/YELLOW, TF AT GOAL 20ML/HR, WILL CONTINUE TO MONITOR AND REPORT TO NIGHT RN.
--- NOTE | 2022-01-02 19:10 | NUR ---
ASSUMPTION OF CARE PT REMAINS INTUBATED WITH VENT SETTINGS AC/VC+ 20/360/12/45% WITH SPO2 >93%. PT RECEIVING PROPOFOL 40MCG/KG/MIN, FENTANYL 50MCG/HR, AND NS TKO. PT HAS BEEN OFF OF NIMBEX SINCE 1500. TUBE FEEDING INFUSING AT GOAL RATE. AMOR DRAINING TO GRAVITY. PLAN TO PLACE SUPINE APPROX 2200.
[2022-01-03 03:55] LABS: BASOPHILS ABSOLUTE AUTO 0.03 K/mm3 (0.00-0.23); BASOPHILS PERCENT AUTO 0 % (0-2); EOSINOPHILS ABSOLUTE AUTO 0.23 K/mm3 (0.00-0.68); EOSINOPHILS PERCENT AUTO 3 % (0-6); Hematocrit 30.3 % (33.0-51.0); Hemoglobin 9.3 g/dL (11.5-16.0); IMMATURE GRAN ABSOLUTE AUTO 0.22 K/mm3 (0.00-0.10); IMMATURE GRAN PERCENT AUTO 3 % (0-1); LYMPHOCYTES ABSOLUTE AUTO 1.02 K/mm3 (0.84-5.20); LYMPHOCYTES PERCENT AUTO 12 % (21-46); MONOCYTES ABSOLUTE AUTO 0.33 K/mm3 (0.16-1.47); MONOCYTES PERCENT AUTO 4 % (4-13); Mean Corpuscular HGB 28.6 pg (26.0-34.0); Mean Corpuscular HGB Conc 30.7 g/dL (31.5-36.5); Mean Corpuscular Volume 93 fL (80-100); Mean Platelet Volume 10.2 fL (9.1-12.4); NEUTROPHILS ABSOLUTE AUTO 6.77 K/mm3 (1.96-9.15); NEUTROPHILS PERCENT AUTO 79 % (41-73); Platelet Count 210 K/mm3 (150-400); RDW Coefficient Variation 16.2 % (11.7-14.2); Red Blood Cell Count 3.25 M/mm3 (3.80-5.20)
--- NOTE | 2022-01-03 04:06 | NUR ---
UNEQUAL PUPILS DURING REASSESSMENT, PUPILS ARE NOW UNEQUAL AND SLUGGISH TO RESPOND. L PUPIL 3MM AND R PUPIL 2MM. PER PREVIOUS CHARTING, PUPILS HAVE VARIED BETWEEN EQUAL AND UNEQUAL FOR THE LAST COUPLE WEEKS. CALL PLACED TO HOSPITALIST IN REGARD TO POSSIBLE HEAD CT. PER HOSPITALIST, DISCUSS CASE WITH COMPUTER GRAPHICS ILLUSTRATOR IN MORNING SINCE THIS HAS BEEN AN ONGOING ISSUE. WILL PASS ON TO DAY SHIFT RN.
[2022-01-03 04:10] LABS: Anion Gap 5 mmol/L (6-16); Blood Urea Nitrogen 33 mg/dL (8-24); Bun/Creatinine Ratio 46.2 (12.0-20.0); CO2, Blood 33 mmol/L (21-32); Calcium, Blood 8.4 mg/dL (8.5-10.1); Chloride, Blood 107 mmol/L (98-108); Creatinine, Blood 0.72 mg/dL (0.40-1.00); Glomerular Filtration Rate >60 (60-); Glucose, Blood 138 mg/dL (70-99); Phosphorus, Blood 3.1 mg/dL (2.5-4.9); Potassium, Blood 3.2 mmol/L (3.5-5.5); Sodium, Blood 145 mmol/L (136-145)
--- NOTE | 2022-01-03 05:37 | NUR ---
SHIFT SUMMARY PT REMAINS INTUBATED WITH VENT SETTINGS AC/VC+ 20/360/12/65%. PT PRONED AT 0400. PT RECEIVING PROPOFOL 15MCG/KG/MIN AND FENTANYL GTT 50MCG/HR. PUPILS REMAIN UNEQUAL, CALL PLACED TO HOSPITALIST MENTIONED IN PREVIOUS NOTE. TUBE FEEDING INFUSING AT GOAL RATE WITH NO RESIDUALS THROUGHOUT NIGHT. AMOR CONTINUES TO DRAIN CLOUDY/YELLOW URINE WITH SHIFT OUTPUT OF 1425ML. PT HAD LARGE LIQUID BROWN/GREEN STOOL. RECTAL TUBE PLACED AND DRAINING TO GRAVITY. PICC AND POWERGLIDE DRESSINGS CHANGED THIS SHIFT. WILL REPORT TO ONCOMING RN.
[2022-01-03 07:49] LABS: PO2 Arterial 49.6 mmHg (80-100)
--- NOTE | 2022-01-03 10:30 | NUR ---
Spiritual Care visit. Pt. was on her stomach and occassionally had bouts of rough breathing. Attending nurse confirmed those were coughs. Pt. was otherwise unresponsive. Prayed for pt.
--- NOTE | 2022-01-03 17:24 | NUR ---
SHIFT SUMMARY NO ACUTE CHANGES THIS SHIFT. PT REMAINS INTUBATED, SEDATED, AND PRONED THIS SHIFT. VENT SETTINGS AC 20, TV 360, PEEP 14, FIO2 80% AT THIS TIME. PT WITH SIGNIFICANT DESATURATION AFTER TURNS, BUT RECOVERS WITH TIME. PICC TO AZALIA REMAINS C/D/I. PROPOFOL INFUSING AT 25 MCG/KG/MIN, FENTANYL BACTERIOLOGIST DAIRY 50 MCG/HR, AND NS TKO. PT GRIMMACES WITH TURNS AND ORAL CARE. COUGH AND GAG PRESENT. PT DOES NOT WITHDRAW EXTREMITIES TO NOXIOUS STIMULI. OGT REMAINS IN PLACE WITH TF INFUSING AT GOAL RATE. AMOR REMAINS IN PLACE WITH LARGE AMOUNT OF CLEAR YELLOW OUTPUT NOTED. RECTAL TUBE REMAINS IN PLACE WITH SOFT BROWN OUTPUT NOTED. VITAL SIGNS HAVE REMAINED STABLE. SBW RESTRAINTS REMAIN IN PLACE. WILL CONTINUE TO MONITOR AND REPORT OFF TO ONCOMING RN.
--- NOTE | 2022-01-03 19:00 | NUR ---
ASSUMPTION OF CARE PT REMAINS INTUBATED WITH VENT SETTINGS AC/VC+ 20/360/14/80%. PT RECEIVING PROPOFOL 25MCG/KG/MIN, FENTANYL 50MCG/HR, AND NS TKO. TUBE FEEDING INFUSING AT GOAL RATE WITH ZERO RESIDUALS. AMOR IS PATENT DRAINING YELLOW/CLOUDY URINE. RECTAL TUBE DRAINING BROWN LIQUID STOOL TO GRAVITY. PLAN TO PLACE PT SUPINE AT APPROX 2000. VSS AT THIS TIME. SEE SHIFT ASSESSMENT.
--- NOTE | 2022-01-03 20:00 | NUR ---
PT PLACED SUPINE PT UNPRONED WITH MULTIPLE STAFF MEMBERS AND RT AT HEAD OF BED. PT OPENED EYES AND STARTED COUGHING CONTINUOUSLY. PT MEDICATED WITH ATIVAN PER EMAR. PT DESATURATED TO 83%. FIO2 HAS BEEN TITRATED TO 90% AND SPO2 >92%. RT CHANGED ETT NUV[facility] HEALTH. SKIN BREAKDOWN AND BLISTER NOTED TO L CHEEK. AREA CLEANED AND TRIPLE ANTIBIOTIC APPLIED.
[2022-01-04 04:37] LABS: BASOPHILS ABSOLUTE AUTO 0.02 K/mm3 (0.00-0.23); BASOPHILS PERCENT AUTO 0 % (0-2); EOSINOPHILS ABSOLUTE AUTO 0.23 K/mm3 (0.00-0.68); EOSINOPHILS PERCENT AUTO 3 % (0-6); Hematocrit 32.6 % (33.0-51.0); Hemoglobin 10.1 g/dL (11.5-16.0); IMMATURE GRAN ABSOLUTE AUTO 0.18 K/mm3 (0.00-0.10); IMMATURE GRAN PERCENT AUTO 2 % (0-1); LYMPHOCYTES ABSOLUTE AUTO 0.83 K/mm3 (0.84-5.20); LYMPHOCYTES PERCENT AUTO 11 % (21-46); MONOCYTES PERCENT AUTO 3 % (4-13); Mean Corpuscular Volume 94 fL (80-100); Mean Platelet Volume 9.8 fL (9.1-12.4); NEUTROPHILS ABSOLUTE AUTO 6.46 K/mm3 (1.96-9.15); NEUTROPHILS PERCENT AUTO 82 % (41-73); Platelet Count 183 K/mm3 (150-400); RDW Coefficient Variation 16.1 % (11.7-14.2); RDW Standard Deviation 54.3 fL (35.1-46.3); Red Blood Cell Count 3.48 M/mm3 (3.80-5.20); White Blood Cell Count 7.92 K/mm3 (4.00-11.30)
[2022-01-04 04:58] LABS: Alanine Aminotransfer (ALT/SGP 72 U/L (12-78); Albumin, Blood 2.1 g/dL (3.4-5.0); Albumin/Globulin Ratio 0.5 (0.8-1.8); Alk Phos 70 U/L (50-136); Anion Gap 3 mmol/L (6-16); Aspartate Aminotrans (AST/SGOT 19 U/L (12-37); Bilirubin, Total 0.4 mg/dL (0.1-1.0); Blood Urea Nitrogen 37 mg/dL (8-24); Bun/Creatinine Ratio 51.4 (12.0-20.0); CO2, Blood 34 mmol/L (21-32); Calcium, Blood 8.9 mg/dL (8.5-10.1); Chloride, Blood 109 mmol/L (98-108); Creatinine, Blood 0.72 mg/dL (0.40-1.00); Globulin, Blood 4.2 g/dL (2.2-4.0); Glomerular Filtration Rate >60 (60-); Glucose, Blood 139 mg/dL (70-99); Potassium, Blood 3.2 mmol/L (3.5-5.5); Sodium, Blood 146 mmol/L (136-145); Total Protein, Blood 6.3 g/dL (6.4-8.2); Triglycerides 152 mg/dL (30-160)
--- NOTE | 2022-01-04 06:15 | NUR ---
SHIFT SUMMARY PT REMAINS INTUBATED WITH VENT SETTINGS AC/VC 20/360/14/70%. PROPOFOL 30MCG/KG/MIN AND FENTANYL 50MCG/HR INFUSING. TUBE FEEDING INFUSING AT GOAL RATE WITH ZERO RESIDUALS THROUGHOUT SHIFT. AMOR PATENT DRAINING TO GRAVITY. RECTAL TUBE DRAINING BROWN LIQUID STOOL, SHIFT OUTPUT 500ML. PT SUPINE AT 2000, AND PRONED AT 0400. PT TOLERATED WELL. WILL REPORT TO ONCOMING RN.
--- NOTE | 2022-01-04 12:23 | NUR ---
Spiritual Care visit Pt. continues to be unresponsive. Gave Pastoral encouragement and prayed with pt.
--- NOTE | 2022-01-04 16:47 | NUR ---
SHIFT SUMMARY NO ACUTE CHANGES THIS SHIFT. PT REMAINS INTUBATED, SEDATED, AND PRONED. VENT SETTINGS AC 20, TV 360, PEEP 14, FIO2 60% AT THIS TIME. PT WITH COUGHING FITS AND LARGE AMOUNT OF SECRETIONS WHEN REPOSITIONED. PT REMAINS SEDATED WITH PROPOFOL AT 30 MCG/KG/MIN AND FENTANYL METROLOGY ENGINEER 50 MCG/HR. PT REMAINS WITH COUGH AND GAG. PT DOES NOT WITHDRAW EXTREMITIES TO NOXIOUS STIMULI OR FOLLOW ANY COMMANDS. PICC TO AZALIA REMAINS C/D/I. NS INFUSING TKO. OGT REMAINS IN PLACE WITH TF INFUSING AT 30 ML/HR GOAL RATE. NO RESIDUALS THIS SHIFT. AMOR REMAINS IN PLACE WITH LARGE VOLUME OF CLEAR YELLOW URINE OUTPUT NOTED. RECTAL TUBE REMAINS IN PLACE WITH SMALL AMOUNT OF SOFT BROWN OUTPUT NOTED. SBW RESTRAINTS REMAIN IN PLACE. VITAL SIGNS HAVE REMAINED STABLE. CHEEKS REMAINS REDDENED AND SWOLLEN. WILL CONTINUE TO MONITOR AND REPORT OFF TO ONCOMING RN.
[2022-01-05 05:08] LABS: BASOPHILS ABSOLUTE AUTO 0.04 K/mm3 (0.00-0.23); BASOPHILS PERCENT AUTO 1 % (0-2); EOSINOPHILS ABSOLUTE AUTO 0.26 K/mm3 (0.00-0.68); EOSINOPHILS PERCENT AUTO 3 % (0-6); Hematocrit 30.8 % (33.0-51.0); Hemoglobin 9.6 g/dL (11.5-16.0); IMMATURE GRAN ABSOLUTE AUTO 0.18 K/mm3 (0.00-0.10); IMMATURE GRAN PERCENT AUTO 2 % (0-1); LYMPHOCYTES ABSOLUTE AUTO 0.92 K/mm3 (0.84-5.20); LYMPHOCYTES PERCENT AUTO 11 % (21-46); MONOCYTES ABSOLUTE AUTO 0.19 K/mm3 (0.16-1.47); MONOCYTES PERCENT AUTO 2 % (4-13); Mean Corpuscular HGB 29.2 pg (26.0-34.0); Mean Corpuscular HGB Conc 31.2 g/dL (31.5-36.5); Mean Corpuscular Volume 94 fL (80-100); NEUTROPHILS ABSOLUTE AUTO 6.46 K/mm3 (1.96-9.15); NEUTROPHILS PERCENT AUTO 80 % (41-73); NRBC ABSOLUTE 0.02 K/mm3 (0.00-0.02); NRBC Auto 0.2 /100 WBC (0.0-0.2); Platelet Count 180 K/mm3 (150-400); RDW Coefficient Variation 16.1 % (11.7-14.2); RDW Standard Deviation 54.4 fL (35.1-46.3); Red Blood Cell Count 3.29 M/mm3 (3.80-5.20); White Blood Cell Count 8.05 K/mm3 (4.00-11.30)
--- NOTE | 2022-01-05 05:25 | NUR ---
SHIFT SUMMARY: PT REMAINS SEDATED WITH PROPOFOL AT 30MCG/KG/MIN AND FENTANYL AT 50MCG/HR. PT POSITIVE FOR DOLL EYES, RIGHT PUPIL 2MM SLUGGISH RESPONSE TO LIGHT, LEFT PUPIL 2MM, NO RESPONSE TO LIGHT. GAG/COUGH REFLEX PRESENT. PT DOES NOT WITHDRAW FROM PAINFUL STIMULI. PT UNPRONED AT 2000, PT COUGHED AND DESATURATED INTO THE HIGH 70'S, DESPITE BEING AT 100% FiO2 PRIOR TO SUPINE POSITION. 4MG OF ATIVAN GIVEN ONCE AFTER UNPRONING FOR SEDATION AND VENT TOLERANCE. PT DECREASED TO 75% FiO2 APPROX 2100, ABLE TO MAINTAIN SpO2 GREATER THAN 88% PT HAVING SMALL AMOUNT OF THIN WATERY/MUCOID SECRETIONS VIA ETT. PT HAS BEEN IN SINUS RYTHYM WITH HR IN THE 70-80'S. BLOOD PRESSURES SOFT, SBP 80 TO LOW 100'S, MAP ABOVE 60, MD AWARE (SEE PREVIOUS NOTE) +1 EDEMA TO FRANCISCO, LEFT FACIAL DEPENDENT EDEMA NOTED. ACTIVE BOWEL TONES, TUBE FEED RUNNING AT GOAL 30ML/HR, NO GI INTOLERANCE NOTED. RECTAL TUBE CAME OUT WHILE SHE WAS COUGHING, RE-INSERTED, DRAINING BROWN LIQUID STOOL TO GRAVITY. AMOR PATENT DRAINING TO GRAVITY, LORETTA/CLOUDY. PT PRONED AT 0400, BILAT SOFT WRIST RESTRAINTS IN PLACE. WILL CONTINUE TO MONITOR UNTIL REPORT IS GIVEN TO ONCOMING SHIFT.
[2022-01-05 05:29] LABS: Anion Gap 6 mmol/L (6-16); Blood Urea Nitrogen 37 mg/dL (8-24); Bun/Creatinine Ratio 55.3 (12.0-20.0); CO2, Blood 32 mmol/L (21-32); Chloride, Blood 110 mmol/L (98-108); Creatinine, Blood 0.67 mg/dL (0.40-1.00); Glomerular Filtration Rate >60 (60-); Glucose, Blood 126 mg/dL (70-99); Potassium, Blood 3.2 mmol/L (3.5-5.5); Sodium, Blood 148 mmol/L (136-145)
--- NOTE | 2022-01-05 07:11 | NUR ---
ASSUMPTION OF CARE RECEIVED REPORT FROM PETRONA ARZOLA, ASSUMED CARE OF PATIENT. PATIENT INTUBATED VENT SETTINGS 20/400/14/100%. PATIENT SUPINE WITH HEAD TURNED TOWARDS THE RIGHT SIDE. TF AT GOAL RATE OF 30ML/HR VIA OG. SEDATED WITH PROPOFOL OF 30MCG/KG, AND FENTANYL OF 50MCG/HR. VITALS CURRENTLY STABLE. AMOR CATHETER PATENT AND DRAINING LORETTA, CLOUDY URINE. RECTAL RUBE WITH BROWN LIQUID DRAINAGE. WILL REVEIW ORDERS AND TREAT PRESCRIBED.
--- NOTE | 2022-01-05 08:03 | NUR ---
SEDATION DECREASED PROPOFOL TO 25MCG/KG PER NEURO ASSESSMENT. NO NEURO CHANGES, PATIENT BEGAN STACKING BREATHS AND BREATHING ABOVE VENT. SATS DROPPED TO 90%. INCREASED PROPOFOL TO 30MCG/KG. PATIENT TOLERATING VENT, SATS INCREASED TO 92%. FIO2 DECREASED TO 70%.
--- NOTE | 2022-01-05 09:52 | NUR ---
FLUID CHANGE RECEIVED ORDERS TO INCREASE FREE WATER FLUSH VIA OG FROM DR. TOTH PER HIGH SODIUM LEVELS. INCREASED WATER FLUSH TO 150ML EVERY 4 HOURS AND WILL RE-EVALUATE TOMORROW AFTER LABS REVIEWED. REPORTED PATIENT'S DEPENDENT EDEMA TO EYES AND FACE AND TRACE EDEMA THROUGHOUT. URINE OUTPUT DARK LORETTA. 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 WILL MONITOR.
--- NOTE | 2022-01-05 12:00 | NUR ---
Pt resting in bed, proned, and intubated. Spoke with RT Cassidy, Primary RN Tiff and discussed case. Spoke with Dr Bennett and Dr Jimenez and discussed case. Care team reports decision maker may benefit from discussion regarding goals of care. Pt is not improving and is a little worse today. Pt verbally told staff that her healthcare decision maker is her caregiver Aleida Judge. Called and spoke with Aleida. Provided update and engaged in therapeutic discussion regarding goals of care and Pt's wishes. Offered therapeutic listening as Aleida expresses her frustrations and states "I knew the hospital killed her the instant she was given Remdesivir". She states this protocol does not work. She continues to vent her frustrations and does not understand why the hospital is not offering medications other countries are offering such as "Viagra, antihistamines, and Ivermectin". Aleida reports that Pt would not want to live vented and states she wants to live. She states "the hospital wants me to give permission to kill her". Continued therapeutic listening. She reports that she would have an easier time making a decision once she knew everything has been tried and done meaning trial of other medications. Instructed that her request and concerns will be relayed to the care team. Relayed concerns and request to Dr Bennett. Mena[place]ell is agreeable for Ethics Constult. Placed Ethics consult. Palliative Care will remain available
--- NOTE | 2022-01-05 14:36 | NUR ---
Telephone call to distributor advertising material, Aleida (per Dr. Barraza's request) who is the patient's retail representative. Aleida is very upset that Rachel was given the "murder drug" remdesivir. She states she knew the moment it was given to her it was going to kill her. She states she is very angry, and she wants us to give her ivermectin. She states she has some she got at [facility] that she can bring in for her if we will give it. (Dr. Barraza had already explained to her that it was not FDA approved for use in COVID + patients). She said she believes the protocols we are currently following are "legal murder." She said she knows several protocols that work that are experimental that we should be trying with Rachel (Disha). She said she doesn't "watch the news" and she "doesn't Google," but there is "a lot out there...the information is coming out. It's not on the news, and it's not on [employer], but the information is coming out that all of these protocols you are doing right now don't work and they are legal murder." I explained to her that although we don't dictate how individual providers practice, we also cannot support experimental procedures/medications in our facility. We are governed by CMS, the Joint Commission, and other regulatory bodies. She verbalized being very angry that we can't do what she wants, and proceeds to say multiple times that we are participating in the "legal murder" of this patient. I told her I respected that she was angry and that she was grieving, but it is our mission here to give our patients the highest quality care possible, and I am sorry but we cannot follow experimental procedures or give her the DC bindery machine operator Ivermectin. I offered her the option of filing a grievance on the patient's behalf with the Patient Advocate. She refused. She said she didn't want to waste anyone else's time if we weren't going to do what she wanted.
--- NOTE | 2022-01-05 17:52 | NUR ---
SHIFT SUMMARY PATIENT PRONED THROUGH SHIFT WITH FREQUENT HEAD REPOSITIONING. VENT SETTINGS CHANGED, FIO2 DECREASED TO 50% AND PEEP DOWN TO 12. CURRENT SPO2 IS 96%. ATTEMPTED TO DECREASE SEDATION ONLY RESULT WAS PATIENT'S VENT INTOLERANCE BUT NO CHANGE TO NEURO OTHERWISE. VITALS STABLE THROUGH SHIFT. POTASSIUM REPLACED ORDERED. FREE WATER INCREASED TO 150ML/Q4HOUR PER HYPERNATREMIA. DISCUSSED GOALS OF CARE WITH PALLIATIVE TEAM AND PHYSICIAN. PALLIATIVE TEAM HAD DISCUSSION WITH DECISION MAKER AND AN ETHICS CONSULT WAS ORDERED. PATIENT TO REMAIN PRONED UNTIL 1999. DEVELOPING SMALL SCABS TO NOSE FROM ETT PRESSURE WHILE PRONED, PADDED ETT TUBE TO PROMOTE COMFORT. AMOR AND RECTAL TUBE REMAINED IN PLACE. WILL CONTINUE TO MONITOR AND REPORT TO ONCOMING RN.
[2022-01-06 03:09] LABS: BASOPHILS ABSOLUTE AUTO 0.03 K/mm3 (0.00-0.23); BASOPHILS PERCENT AUTO 1 % (0-2); EOSINOPHILS ABSOLUTE AUTO 0.21 K/mm3 (0.00-0.68); EOSINOPHILS PERCENT AUTO 3 % (0-6); Hematocrit 27.4 % (33.0-51.0); Hemoglobin 8.4 g/dL (11.5-16.0); IMMATURE GRAN PERCENT AUTO 3 % (0-1); LYMPHOCYTES ABSOLUTE AUTO 0.93 K/mm3 (0.84-5.20); LYMPHOCYTES PERCENT AUTO 15 % (21-46); MONOCYTES ABSOLUTE AUTO 0.14 K/mm3 (0.16-1.47); MONOCYTES PERCENT AUTO 2 % (4-13); Mean Corpuscular HGB 29.4 pg (26.0-34.0); Mean Corpuscular HGB Conc 30.7 g/dL (31.5-36.5); Mean Corpuscular Volume 96 fL (80-100); Mean Platelet Volume 10.1 fL (9.1-12.4); NEUTROPHILS ABSOLUTE AUTO 4.89 K/mm3 (1.96-9.15); NEUTROPHILS PERCENT AUTO 76 % (41-73); Platelet Count 138 K/mm3 (150-400); RDW Coefficient Variation 16.2 % (11.7-14.2); RDW Standard Deviation 55.8 fL (35.1-46.3); Red Blood Cell Count 2.86 M/mm3 (3.80-5.20)
[2022-01-06 03:24] LABS: Anion Gap 3 mmol/L (6-16); Blood Urea Nitrogen 36 mg/dL (8-24); Bun/Creatinine Ratio 60.3 (12.0-20.0); CO2, Blood 31 mmol/L (21-32); Calcium, Blood 8.8 mg/dL (8.5-10.1); Chloride, Blood 113 mmol/L (98-108); Glomerular Filtration Rate >60 (60-); Glucose, Blood 125 mg/dL (70-99); Phosphorus, Blood 3.3 mg/dL (2.5-4.9); Potassium, Blood 3.3 mmol/L (3.5-5.5); Sodium, Blood 147 mmol/L (136-145); Triglycerides 150 mg/dL (30-160)
--- NOTE | 2022-01-06 06:19 | NUR ---
SHIFT SUMMARY: PATIENT REMAINS INTUBATED/SEDATED. SHE WAS SUPINED AT 1999 AND RE-PRONED AT 0400. SHE TOLERATED BEING SUPINED BUT EVENTUALLY REQUIRED PEEP BEING INCREASED BACK TO 14 IT WAS 12 WHEN I CAME ON SHIFT. FIO2 WAS ALSO INCREASED TO 70% BECAUSE SHE WAS ONLY 84% FOR A PERIOD OF TIME. PROPOFOL INFUSING AND ATIVAN GIVEN X1. VSS. MANJU WRIST RESTRAINTS REMAIN ON. NO FAMILY CALLED OVERNIGHT
--- NOTE | 2022-01-06 07:02 | NUR ---
ASSUMPTION OF CARE RECEIVED REPORT FROM FRANKIE RN, ASSUMED CARE OF PATIENT. PATIENT PRONED WITH HEAD TURNED TO THE LEFT. VENT SETTINGS 20/400/14/70%, SP02 96%. TF AT 30ML VIA OG WITH FREE WATER FLUSHES AT 150ML/4HR. SEDATED ON 40MCG/KG OF PROPOFOL AND 50MCG/HR OF FENTANYL. PATIENT WITH COUGH TO SUCTION AND COUGH WITH ACTIVITY, DOES NOT ATTEMPT TO FOLLOW COMMANDS OR PROVIDE SPONTANEOUS EYE OPENING OR MOVEMENT OF EXTREMITIES. WITH DECREASING SEDATION PATIENT STACKS BREATHS AND COUGHS UNCONTROLLABLY, NO CHANGES TO NEURO STATUS WITH LOWER SEDATION. POTASSIUM REPLACEMENT INFUSING. AMOR AND RECTAL TUBE PATENT IN APPROPRIATE PLACE. WILL REVIEW ORDERS AND TREAT PRESCRIBED.
--- NOTE | 2022-01-06 10:55 | NUR ---
SEDATION INCREASE AFTER REPOSITIONING AND HEAD TURN, PATIENT BEGAN COUGHIN CONTINUOUSLY. SUCTIONING COPIOUS AMOUNTS OF CLEAR, THIN SECRETIONS VIA ETT AND ORALLY. RESPIRATIONS INCREASED TO HIGH 30'S AND SP02 DECREASED TO LOW 80'S. 100% FIO2 ADMINISTERED AND SEDATION INCREASED. AT THIS TIME RESPIRATIONS DECREASING TO HIGH 20'S, COUGHING MINIMIZED, AND SP02 INCREASED TO LOW 90'S ON 70% FIO2. WILL CONTINUE TO MONITOR AND TITRATE SEDATION NEEDED.
--- NOTE | 2022-01-06 12:42 | NUR ---
VENT CHANGES DR. RUST TO ROOM AT THIS TIME, VENT SETTINGS CHANGED BY TO 20/380/12/60%. WILL MONITOR PATIENT'S RESPONSE TO CHANGES.
--- NOTE | 2022-01-06 17:58 | NUR ---
SHIFT SUMMARY PATIENT REMAINED PRONED THROUGH SHIFT, TO BE SUPINE AT 2000 AND PRONED AT 0400. VENT SETTINGS CHANGED TO 20/380/12/60%, PATIENT WITH PRODUCTIVE, STRONG, COUGH WITH TURNS. SEDATION TITRATED FOR VENT COMPLIANCE. CURRENTLY ON PROPOFOL OF 50MCG/KG AND FENTANYL 50MCG/HR. INCREASED FREE WATER FLUSH TO 200ML/Q4HR FOR SODIUM LEVELS PER DR. RUST. DR. RUST SPOKE WITH CAREGIVER VIA T/P, GAVE UPDATE ON PATIENT. STABLE VITAL SIGNS THROUGH SHIFT. RECTAL TUBE DISPLACED SEVERAL TIMES WITH COUGHING EPISODES, REPLACED PER BROWN LIQUID STOOL DRAINING. NO OTHER ACUTE CHANGES. WILL CONTINUE TO MONITOR AND REPORT TO ONCOMING RN.
--- NOTE | 2022-01-07 06:10 | NUR ---
PATIENT CONTINUES TO BE INTUBATED AND SEDATED WITH PROPOFOL. NO VENT CHANGES MADE TONIGHT. SHE WAS SUPINED AT 2000 AND THEN PRONED AT 0400. SHE TOLERATED ALL TURNING TONIGHT WITH NO DESATURARION ISSUES. VSS.
--- NOTE | 2022-01-07 07:18 | NUR ---
ASSUMPTION OF CARE RECEIVED REPORT FROM FRANKIE ARZOLA, ASSUMED CARE OF PATIENT. PATIENT PRONED WITH HEAD TURNED TO LEFT SIDE. VENT SETTINGS 20/380/60/12, SP02 99%. SEDATED ON PROPOFOL OF 50MCG/KG AND FENTANYL 50MCG/HR. TF INFUSING VIA OG AT 30ML/HR WITH FREE WATER FLUSH OF 200ML/Q4HR. VITALS STABLE. AMOR AND RECTAL TUBE SECURED IN PLACE. WILL REVIEW ORDERS AND TREAT PRESCRIBED.
--- NOTE | 2022-01-07 09:33 | NUR ---
REPOSITIONING WHILE PATIENT PRONED, REPOSITIONED HEAD TO RIGHT SIDE AND TILTED BODY LEFT. UTILITIZED RT, 2RN, PCT. PATIENT BEGAN COUGHING, DESAT TO 70'S REQUIRING 100% FIO2 AND FREQUENT SUCTIONING. RESPIRATIONS TO THE 30'S. PATIENT'S BODY WAS VERY STIFF, DIFFICULT TURNING HEAD. PATIENT CONTINUES TO DESAT AFTER TURN WAS COMPLETED. REMAINS ON 100% FIO2. DR. RUST TO ROOM, NOTIFIED OF TURN DIFFICULTIES AND DESAT. RECEIVED INSTRUCTIONS TO GIVE ATIVAN FOR INCREASED SEDATION. NOTIFIED DR. RUST PATIENT ALREADY RECEIVING 50MCG/KG OF PROPOFOL AND 50MCG/HR OF FENTANYL. ATIVAN WAS GIVEN, RT TO ROOM TO DRAW ABG. FIO2 OF 80% WITH SP02 AT 90. WILL CONTINUE TO MONITOR AND TREAT PRESCRIBED.
[2022-01-07 09:58] LABS: PCO2 Arterial 39.6 mmHg (35-45); PO2 Arterial 60.5 mmHg (80-100); pH Blood Arterial 7.42 (7.35-7.45)
--- NOTE | 2022-01-07 18:08 | NUR ---
SHIFT SUMMARY PATIENT PRONED THROUGH SHIFT. DISCUSSED PLAN WITH DR. RUST. NO CHANGES TO CARE. WILL SUPINATE PATIENT AT 2000 AND PRONE AGAIN AT 0400. VENTILATED WITH SETTINGS 20/380/60%/12. SPO2 ABOVE 95%. PERIODS OF DESATURATION WITH TURNS AT BEGINNING OF SHIFT. PATIENT BEGAN TO MAINTAIN SP02 WITH AFTERNOON REPOSITIONINGS. TF REMAINED AT GOAL WITH FREE WATER FLUSH UNCHANGED AT 200ML/Q4H. SEDATION CONTINUES AT PROPOFOL OF 50MCG/KG, AND FENTANYL AT 50MCG/HR. PATIENT COUGHS AGAINST VENT, INCREASES RESP. RATE WITH REPOSITIONING. NO PURPOSEFUL MOVEMENTS NOTED. AMOR WITH CLEAR, YELLOW URINE PATENT AND DRAINING. RECTAL TUBE CONTINUED TO BECOME DISLODGED, RECTAL TONE WEAK. REMOVED RECTAL TUBE. PATIENT WITH LIQUID, BROWN STOOL WITH COUGHING. REQUESTED LABS THIS MORNING FROM DR. RUST WHO SAID SHE WOULD ORDER WHAT THE PATIENT NEEDED. VITALS STABLE. WILL CONTINUE TO MONITOR AND REPORT TO ONCOMING RN.
--- NOTE | 2022-01-07 19:06 | NUR ---
ASSUMED PT CARE AT 1900 PT INTUBATED AND SEDATED. PROPOFOL AT 50MCG/KG/MIN, FENTANYL AT 50MCG/HR. VENT SETTINGS: AC/VC + 20, VT 350, TI 0.90, PEEP 12, FIO2 60%, SPO2 98%, RR 27. NSR WITH HR 70'S. SBP'S 140'S. PICC TO LEFT UPPER ARM. VHP INFUSING AT GOAL OF 30ML/HR WITH FREE WATER FLUSHES AT 200CC EVERY FOUR HOURS. AMOR IS PATENT AND DRAINING TO GRAVITY. SEE SHIFT SUMMARY FOR FURTHER DETAILS.
[2022-01-08 04:54] LABS: Triglycerides 123 mg/dL (30-160)
--- NOTE | 2022-01-08 05:39 | NUR ---
END OF SHIFT SUMMARY PT REMAINS INTUBATED AND SEDATED. UNCHANGED SEDATIVE GTTS; PROPOFOL AT 50MCG/KG/MIN AND FENTANYL AT 50MCG/HR. VENT SETTINGS: AC/VC + 20, VT 360, PI 0.90, PEEP 12, FIO2 DOWN TO 55%. RR 20-26, FIO2 >90%. PT REMAINS SUPINATED HER VENT SETTINGS AND RESPIRATORY STATUS DID NOT DECLINE AFTER BEING TURNED FROM THE PRONED POSITION AT 1999; HOWEVER, PER DR. POPE, DR. RUST CAN RE-EVALUATE PRONATION THIS MORNING. PT APPEARS TO OXYGENATE BETTER WHEN HARD TURNED TO RIGHT SIDE WITH LEFT LUNG UP. PT DOES REQUIRE INCREASE IN PROPOFOL UP TO 65MCG/KG/MIN DURING TURNS TO PREVENT COUGHING EPISODES THAT LEAD TO POOR OXYGENATION WITH A SLOW RECOVERY. SEDATION VACATION NOT PERFORMED D/T COUGHING EPISODES LEADING TO RESPIRATORY DECLINE AND INSTABILITY. NEURO ASSESSMENT NOT ABLE TO BE FULLY ASSESSED D/T UNABLE TO WEAN SEDATION. HOWEVER, WITH SEDATION IN PLACE PT WILL CLAMP DOWN AND FURROW BROW WITH ORAL CARES. NO GAG, BUT POSITIVE COUGH AND SWALLOW. DOES NOT WITHDRAWAL FROM NOXIOUS STIMULUS, INCLUDING NAILBED PRESSURE. PUPILS ARE EQUAL; RIGHT IS REACTIVE TO LIGHT, HOWEVER, LEFT IS NOT; 2MM IN SIZE. NO MOVEMENT NOTED TO BILATERAL EYES, BUT BOTH NOTED TO BE AT AN INWARD GAZE. NYSTATIN CREAM APPLIED TO ALL RASHES UNDER BILATERAL BREASTS, R ARM PIT, AND MARCIO/RECTAL AREA. PT CONTINUES TO HAVE LOOSE/LIQUID STOOLS; RECTAL TUBE WAS EXPELLED DURING ONE OF PT'S COUGHING FITS YESTERDAY D/T POOR SPHINCTER TONE PER REPORT. TUBE FEEDS, VHP, REMAIN AT GOAL OF 30ML/HR WITH FREE WATER FLUSHES OF 200CC EVERY FOUR HOURS. AMOR CATHETER REMAINS PATENT AND DRAINING TO GRAVITY. WILL CONTINUE TO MONITOR UNTIL REPORT IS HANDED OFF TO ONCOMING RN.
--- NOTE | 2022-01-08 09:00 | NUR ---
DR. RUST UPDATED ON PATIENT. INFORMED THAT PRESSURES SOFT OVER PRICE ACCURACY SUPERVISOR. NO ORDERS RECEIVED. STATED NO PRONING UNTIL FURTHER NOTICE.
[2022-01-08 09:55] LABS: BASOPHILS ABSOLUTE AUTO 0.03 K/mm3 (0.00-0.23); BASOPHILS PERCENT AUTO 0 % (0-2); EOSINOPHILS ABSOLUTE AUTO 0.28 K/mm3 (0.00-0.68); EOSINOPHILS PERCENT AUTO 4 % (0-6); Hemoglobin 8.7 g/dL (11.5-16.0); Mean Corpuscular HGB 28.8 pg (26.0-34.0); Mean Corpuscular HGB Conc 31.1 g/dL (31.5-36.5); Mean Corpuscular Volume 93 fL (80-100); Mean Platelet Volume 10.4 fL (9.1-12.4); NRBC ABSOLUTE 0.02 K/mm3 (0.00-0.02); NRBC Auto 0.3 /100 WBC (0.0-0.2); Platelet Count 131 K/mm3 (150-400); RDW Standard Deviation 52.8 fL (35.1-46.3); Red Blood Cell Count 3.02 M/mm3 (3.80-5.20); White Blood Cell Count 7.94 K/mm3 (4.00-11.30)
[2022-01-08 09:56] LABS: Alanine Aminotransfer (ALT/SGP 37 U/L (12-78); Albumin, Blood 1.9 g/dL (3.4-5.0); Albumin/Globulin Ratio 0.5 (0.8-1.8); Alk Phos 56 U/L (50-136); Anion Gap 8 mmol/L (6-16); Aspartate Aminotrans (AST/SGOT 12 U/L (12-37); Bilirubin, Total 0.2 mg/dL (0.1-1.0); Blood Urea Nitrogen 26 mg/dL (8-24); Bun/Creatinine Ratio 43.6 (12.0-20.0); CO2, Blood 26 mmol/L (21-32); Calcium, Blood 8.6 mg/dL (8.5-10.1); Chloride, Blood 105 mmol/L (98-108); Globulin, Blood 3.6 g/dL (2.2-4.0); Glomerular Filtration Rate >60 (60-); Glucose, Blood 125 mg/dL (70-99); Phosphorus, Blood 2.9 mg/dL (2.5-4.9); Potassium, Blood 3.1 mmol/L (3.5-5.5); Sodium, Blood 139 mmol/L (136-145); Total Protein, Blood 5.5 g/dL (6.4-8.2); Triglycerides 127 mg/dL (30-160)
--- NOTE | 2022-01-08 10:00 | NUR ---
INITIAL ASSESSMENT PATIENT INTUBATED AND ON SEDATION. PATIENT BITES ON ETT TUBE WHILE NURSE PERFORMING ORAL CARE, OTHERWISE PATIENT DOES NOT GRIMACE OR MOVE ANY OF HER EXTREMITIES. R EYE HAS INWARD GAZE. R PUPIL 3+ IN SIZE AND REACTS TO LIGHT. L PUPIL 2+ IN SIZE AND HAS NO REACTION TO LIGHT. INFORMED DR. RUST AND DR. RUST CAME IN ROOM TO ASSESS. + COUGH REFLEX NOTED. FOOT DROP NOTED; DEVICES FOR FOOT DROP APPLIED TO FEET. NO PLANTAR REFLEXES NOTED. PATIENT AFEBRILE. NO SIGNS OF PAIN NOTED. PATIENT ON VENT SETTINGS OF AC VC+ 20, TV 380, TI 0.90, PEEP 12 AND 55% FIO2. LUNGS COARSE THROUGHOUT. RR 20S TO 30S. SMALL AMOUNT OF THIN, CLEAR SPUTUM BEING SUCTIONED FROM ETT. PATIENT IN SR, HR 70S TO 80S. SBP 90S TO 130S. ABDOMEN MILDLY DISTENDED, SOFT, WITH NORMOACTIVE BOWEL SOUNDS NOTED. PATIENT HAS BEEN HAVING LOOSE/ LIQUID, BROWN STOOLS. OG IN PLACE. VHP TF INFUSING AT GOAL RATE OF 30 MLS/ HOUR WITH 200 MLS WATER FLUSH Q4H. AMOR DRAINING YELLOW COLORED URINE. PRESSURE SORES NOTED TO BILAT CHEEKS, NOSE AND SEPTUM FROM ETT HOLD WHEN PATIENT PRONED. FABRIC ETT JOY PLACED. AXILLI, GROIN, UNDER BREASTS AND MARCIO AREA REDDENED RASH; PRN NYSTATIN BEING APPLIED. SCATTERED BRUISIES NOTED. SKIN PALE AND FRAGILE. PROPOFOL INFUSING AT 50 MCG/ KG/ MINUTE, FENTANYL AT 50 MCG/ HOUR AND NS TKO. BED LOW. WILL CONTINUE TO MONITOR PATIENT FREQUENTLY THROUGHOUT SHIFT.
[2022-01-08 10:01] LABS: IMMATURE GRAN ABSOLUTE AUTO 0.38 K/mm3 (0.00-0.10); IMMATURE GRAN PERCENT AUTO 5 % (0-1); LYMPHOCYTES ABSOLUTE AUTO 0.79 K/mm3 (0.84-5.20); LYMPHOCYTES PERCENT AUTO 10 % (21-46); MONOCYTES ABSOLUTE AUTO 0.17 K/mm3 (0.16-1.47); MONOCYTES PERCENT AUTO 2 % (4-13); NEUTROPHILS ABSOLUTE AUTO 6.29 K/mm3 (1.96-9.15); NEUTROPHILS PERCENT AUTO 79 % (41-73)
--- NOTE | 2022-01-08 13:00 | NUR ---
PATIENT AFEBRILE. HR 60S TO 90S. SBP 1-TEENS TO 130S. SBP 1-TEENS TO 130S. FIO2 AT 70%. TF FLUSH DECREASED TO 100 MLS Q6H. FECAL TRANSLITERATOR PLACED ON PATIENT FOR LOOSE STOOLS AND POOR RECTAL TUBE. PROPOFOL AT 20 MCG/ KG/ MINUTE AND PRECEDEX AT 0.7 MCG/ KG/ HOUR. NO OTHER ACUTE CHANGES TO NOTE ON AT THIS TIME. WILL CONTINUE TO MONITOR.
[2022-01-08 13:41] LABS: PO2 Arterial 105 mmHg (80-100); pH Blood Arterial 7.41 (7.35-7.45)
--- NOTE | 2022-01-08 16:29 | NUR ---
T/C placed to licensor for group homes providing services to disabled populations with the intent of confirming the proxy status of Aleida who self-identifies as the principals authrorized b2b sales representative. I left a detailed message and am expecting a return call during business hours tomorrow. The district court verified that no active guardianships are on file for the principal. If it turns out that Aleida was not formally designated by the principal, or she has not been selected through a legal assignment of proceeding, then ORS [phone] prevails upon us to default to the principals sister for medical decision making support, assuming she has no children available to function in that capacity. Thank you for this consult. Ubaldo Haji ThD, DEYANIRA
--- NOTE | 2022-01-08 16:30 | NUR ---
PATIENT AFEBRILE. HR 50S TO 60S. SBP 90S TO LOW 100S. FIO2 AT 60%. VHP AT NEW GOAL OF 35 MLS/ HOUR. PRECEDEX DECREASED TO 0.5 MCG/ KG/ HOUR. NO OTHER ACUTE CHANGES TO NOTE ON AT THIS TIME. WILL CONTINUE TO MONITOR.
--- NOTE | 2022-01-08 18:52 | NUR ---
SHIFT SUMMARY PATIENT REMAINED INTUBATED AND MOSTLY SEDATED. PATIENT DID HAVE SEDATION VACATION THIS SHIFT AND WEAN ON 14/11 AND 70 TO 85% FIO2. PATIENT DID OPEN EYES DURING WEAN BUT DID NOT TRACK OR PERFORM ANY PURPOSEFUL MOVEMENTS. PATIENT DID NOT MOVE EXTREMITIES ONCE THIS SHIFT. R EYE CONTINUES TO HAVE R INWARD GAZE. L PUPIL REMAINS SMALLER THAN R AND REMAINS NONREACTIVE TO LIGHT. FOOT DROP DEVICES IN PLACE. NO SIGNS OF PAIN THIS SHIFT. PATIENT REMAINED AFEBRILE. PATIENT ON AC VC + 20, TV 380, TI 0.90, PEEP 12 AND 60% FIO2 AT THIS TIME. SECRETIONS REMAINED SMALL, THIN AND CLEAR. ETT JOY EXCHANGED FOR FABRIC JOY PATIENT HAS PRESSURE SORES UNDER OLD ETT FROM BEING PRONED CONSISTENTLY. PATIENT REMAINED IN SB TO SR, HR 50S TO 90S. SBP 90S TO 150S. PATIENT HAD 2 LOOSE BMS THIS SHIFT. FECAL FLIGHT INSPECTOR BAG PLACED AND PATIENT CONTINUES TO STOOL EVERY COUGH SHE HAS. VHP TF INCREASED TO NEW GOAL RATE OF 35 MLS/ HOUR AND WATER FLUSH HAS BEEN DECREASED TO 100 MLS Q6H. BLOOD SUGARS RANGED FROM 165 TO 218. AMOR DRAINED 1650 MLS OF YELLOW COLORED URINE. PATIENT REPOSITIONED Q2H. ANTIBIOTIC OINTMENT APPLIED TO SORES ON FACE. NYSTATIN CREAM APPLIED TO RED SKIN FOLDS ON BODY. DIFLUCAN PT ORDERED FOR THESE RASHES WELL. PROPOFOL INFUSING AT 20 MCG/ KG/ MINUTE, PRECEDEX AT 0.5 MCG/ KG/ HOUR, NS TKO. PATIENT RECEIVED IN TOTAL 80 MEQ KCL FOR POTASSIUM OF 3.1 THIS AM. PATIENT RECEIVED 2 G MAG FOR MAG OF 1.7 THIS AM. PATIENT APPEARS WITHOUT PAIN OR DISCOMFORT AT THIS TIME. BED LOW. REPORT WILL BE GIVEN TO ASSUMING BUSINESS DEVELOPMENT REPRESENTATIVE NURSE SHORTLY.
--- NOTE | 2022-01-09 06:03 | NUR ---
SHIFT SUMMARY: PATIENT TOLERATED BEING SUPINED ALL NIGHT WITH NO VENT CHANGES. 20/380/12/60%. MINIMAL SUCTIONING NEEDED. VSS. BP HAS BEEN LABILE AT TIMES BUT WILL COME BACK UP WITH STIMULATION AND SMALL TITRATIONS TO DRIPS. SHE STILL COUGHS AT TIMES BUT MINIMAL DESAT ISSUES WITH THAT AND WHEN TURNING PATIENT. PROPOFOL AND PRECEDEX INFUSING. ETT TUBE HANDLED WITH CARE AND AN EXTRA PERSON AT BEDSIDE WHEN TURNING ON SIDE FOR BED BATH. TAPE IS IN PATIENTS MOUTH BUT RT LIKES ITS POSITION AND WILL LIKELY GET RE-TAPED TODAY. OTHERWISE, TUBE IS SECURE.
[2022-01-09 09:05] LABS: BASOPHILS ABSOLUTE AUTO 0.02 K/mm3 (0.00-0.23); BASOPHILS PERCENT AUTO 0 % (0-2); EOSINOPHILS ABSOLUTE AUTO 0.25 K/mm3 (0.00-0.68); EOSINOPHILS PERCENT AUTO 4 % (0-6); Hematocrit 26.9 % (33.0-51.0); Hemoglobin 8.3 g/dL (11.5-16.0); IMMATURE GRAN ABSOLUTE AUTO 0.36 K/mm3 (0.00-0.10); IMMATURE GRAN PERCENT AUTO 5 % (0-1); LYMPHOCYTES PERCENT AUTO 15 % (21-46); MONOCYTES ABSOLUTE AUTO 0.15 K/mm3 (0.16-1.47); MONOCYTES PERCENT AUTO 2 % (4-13); Mean Corpuscular HGB 28.7 pg (26.0-34.0); Mean Corpuscular HGB Conc 30.9 g/dL (31.5-36.5); Mean Corpuscular Volume 93 fL (80-100); Mean Platelet Volume 10.2 fL (9.1-12.4); NEUTROPHILS ABSOLUTE AUTO 5.08 K/mm3 (1.96-9.15); NEUTROPHILS PERCENT AUTO 74 % (41-73); NRBC ABSOLUTE 0.02 K/mm3 (0.00-0.02); NRBC Auto 0.3 /100 WBC (0.0-0.2); Platelet Count 124 K/mm3 (150-400); RDW Coefficient Variation 16.4 % (11.7-14.2); RDW Standard Deviation 54.2 fL (35.1-46.3); Red Blood Cell Count 2.89 M/mm3 (3.80-5.20); White Blood Cell Count 6.86 K/mm3 (4.00-11.30)
[2022-01-09 09:24] LABS: PCO2 Arterial 40.6 mmHg (35-45); pH Blood Arterial 7.42 (7.35-7.45)
--- NOTE | 2022-01-09 11:39 | NUR ---
ASSUMED CARE OF PT, REPORT RCV'D FROM DARIUSZ DAVID. PT INTUBATED AND SEDATED. VENT SETTINGS AC 20/380/12/60%, PROPOFOL @ 20 MCG/KG/MIN, PRECEDEX @ 0.2 MCG/KG/HR, FENTANYL GTT @ 50 MCG/HR. PT SATURATION DROPPED TO SUSTAINED LOW 70%. STAT CHEST XRAY AND ABG ORDERED. PEEP INCREASED TO 14, FI02 @ 100% TO KEEP SATS>88%. PT UNABLE TO TOLERATE REPOSITIONING TO LEFT SIDE. LUNG SOUNDS COARSE T/O, MODERATE AMOUNT OF THICK CLEAR SECRETIONS FROM ETT. PROPOFOL INCREASED TO 30 MCG/KG/MIN, PRECEDEX @ 0.7 MCG/KG/HR D/T PT COUGHING AND DESATTING. LEFT RADIAL ARTLINE PLACED. VSS AT THIS TIME. PT REMAINS OUT OF RESTRAINTS SHE NOT MOVING HER EXTREMITIES AT THIS TIME. PT OCCASIONALLY OPENS EYES, FAILS TO TRACK MOVEMENT OR FOLLOW COMMANDS. PT DISPLAYS FACIAL GRIMACE WITH PAINFUL STUMULI. LEFT PUPIL 2 MM, SLUGGISH REACTION, RIGHT PUPIL 3-4 MM BRISK REACTION. SEE FULL SHIFT ASSESSMENT.
[2022-01-09 13:28] LABS: Anion Gap 5 mmol/L (6-16); Blood Urea Nitrogen 25 mg/dL (8-24); Bun/Creatinine Ratio 40.8 (12.0-20.0); CO2, Blood 25 mmol/L (21-32); Calcium, Blood 8.4 mg/dL (8.5-10.1); Chloride, Blood 108 mmol/L (98-108); Creatinine, Blood 0.61 mg/dL (0.40-1.00); Glomerular Filtration Rate >60 (60-); Glucose, Blood 186 mg/dL (70-99); Phosphorus, Blood 3.2 mg/dL (2.5-4.9); Potassium, Blood 4.4 mmol/L (3.5-5.5); Sodium, Blood 138 mmol/L (136-145)
--- NOTE | 2022-01-09 17:04 | NUR ---
Pt. is nonresponsive, but is lying on her back. At no time presently or any time in my previous visits has the pt. verbally responded. Based on the information given through admitting regarding her ann, I prayed for pt.
--- NOTE | 2022-01-09 18:02 | NUR ---
SHIFT SUMMARY PT REMAINS INTUBATED AND SEDATED. VENT SETTING AC 20/380/12/40-60%. PRECEDEX ON STANDBY D/T PERSISTENT BRADYCARDIA, FENTANYL GTT @ 50 MCG/HR. PROPOFOL @ 25 MCG/KG/MIN. PT CONTINUES TO HAVE SPONTANEOUS EPISODES WHERE SATS DROP AND ARE SUSTAINED IN LOW 70%. PT DOES NOT TOLERATE BEING TURNED ONTO LEFT SIDE. THIS EVENING PT'S SATS DROPPED SUDDENLY FOLLOWED BY INCREASE IN BLOOD PRESSURE WITH SBP UP TO 190'S. PT'S PUPILS APPEAR PINPOINT BILATERALLY. SEE PREVIOUS NOTES FROM THIS SHIFT, WILL REPORT TO ONCOMING NURSE.
[2022-01-10 04:05] LABS: Hematocrit 28.2 % (33.0-51.0); Hemoglobin 8.6 g/dL (11.5-16.0); Mean Corpuscular HGB 28.7 pg (26.0-34.0); Mean Corpuscular HGB Conc 30.5 g/dL (31.5-36.5); Mean Corpuscular Volume 94 fL (80-100); Mean Platelet Volume 10.7 fL (9.1-12.4); NRBC ABSOLUTE 0.02 K/mm3 (0.00-0.02); NRBC Auto 0.3 /100 WBC (0.0-0.2); Platelet Count 139 K/mm3 (150-400); RDW Coefficient Variation 16.2 % (11.7-14.2); RDW Standard Deviation 54.3 fL (35.1-46.3); White Blood Cell Count 6.72 K/mm3 (4.00-11.30)
--- NOTE | 2022-01-10 06:03 | NUR ---
PATIENT SUMMARY: PATIENT INTUBATED/SEDATED. NO VENT CHANGES. STILL NOT TOLERATING TURNS TO LEFT SIDE EVER SINCE DAYSHIFT YESTERDAY. FREQUENT TURNS TO RIGHT SIDE AND BACK SUPINE OVERNIGHT WELL A BED BATH WHICH SHE DID OKAY WITH. O2 SATS DROPPED TO 82% BUT SHE CAME BACK UP WITH MULTIPLE O2 BREATHS. HR IS MORE SB THAN IT HAS BEEN. SHE HAS DROPPED LOW 44 BUT WILL BE 60-70S WHEN STIMULATED. BP LABILE AT TIMES, REQUIRING ADJUSTMENTS TO SEDATION FREQUENTLY. PRECEDEX HAS BEEN ON STANDBY ALL NIGHT SHE IS ALREADY BLAKE. PROPOFOL INFUSING. A LINE INTACT AND WORKING GREAT. STILL UNABLE TO FOLLOW COMMANDS. RESTRAINTS REAMIN OFF
[2022-01-10 06:30] LABS: BAND PERCENT MAN 1 % (0-8); BASOPHILS PERCENT MAN 0 % (0-2); EOSINOPHILS ABSOLUTE MAN 0.26 K/mm3 (0.00-0.68); EOSINOPHILS PERCENT MAN 4 % (0-6); LYMPHOCYTES ABSOLUTE MAN 0.67 K/mm3 (0.84-5.20); LYMPHOCYTES PERCENT MAN 10 % (21-46); MONOCYTES ABSOLUTE MAN 0.13 K/mm3 (0.16-1.47); MONOCYTES PERCENT MAN 2 % (4-13); MYELOCYTE PERCENT MAN 3 % (0-0); NEUTROPHILS ABSOLUTE MAN 5.44 K/mm3 (1.96-9.15); SEG NEUTROPHILS PERCENT MAN 80 % (41-73); TOTAL CELLS COUNTED 100
--- NOTE | 2022-01-10 07:23 | NUR ---
ASSUMPTION OF CARE RECEIVED REPORT FROM FRANKIE ARZOLA, ASSUMED CARE OF PATIENT. PATIENT SUPINE ON RIGHT SIDE. VENTILATED WITH SETTINGS 20/380/12/60% WITH SP02 92%. TF VIA OG AT 35ML/HR, WATER FLUSH AT 100ML/Q4H. SEDATED WITH PROPOFOL OF 25MCG/KG AND FENTANYL 50MCG/HR. AMOR CATHETER PATENT AND DRAINING CLEAR, YELLOW URINE. VITALS STABLE. WILL REVIEW ORDERS AND TREAT PRESCRIBED.
--- NOTE | 2022-01-10 10:35 | NUR ---
REPOSITIONING AFTER PATIENT TURNED TO RIGHT SIDE, CONTINUOUS COUGHING WITH COPIOUS SECRETIONS ORALLY AND ETT. DESAT TO LOW 80'S, HYPERTENSIVE, NOTIFIED RT AND DR. RUST. WILL INCREASE FIO2 TO 85% AND PEEP IF PATIENT DESATS AGAIN. DR RUST ENTERING MEDICATION ORDERS FOR B/P MANAGEMENT. WILL TREAT PRESCRIBED.
--- NOTE | 2022-01-10 12:09 | NUR ---
Called pt's CG Aleida to invite her to see patient today as requested by Dr. Barraza. However, during the course of the conversation, Aleida became tearful, and was able to verbalize understanding regarding pt's poor prognosis, and is now agreeable to withdraw care today. She asked for time to make some phone calls prior to setting a specific time this afternoon. She states she would like to be present with pt when she passes, and will call back shortly with an estimated time of arrival. Notified Cinthia, ICU charge nurse.
--- NOTE | 2022-01-10 15:00 | NUR ---
COMFORT CARE PATIENT'S CAREGIVER ROMINA ARRIVED TO ICU, DISCUSSED PLAN WITH DR. RUST. EXTUBATED PER RT AT 1445 TO 2L 02 VIA NC. ALL SEDATION DISCONTINUED, AND MORPHINE GIVEN CHARTED. SUCTIONED ORAL SECRETIONS, PATIENT REMAINS WITH STRONG COUGH. CAREGIVER TO BEDSIDE. WILL PROVIDE COMFORT MEASURES NEEDED.
--- NOTE | 2022-01-10 18:00 | NUR ---
SHIFT SUMMARY PATIENT WITH MULTIPLE DESAT AND COUGHING EPISODES. MULTIPLE MEDICATIONS ADMINISTERED FOR SEDATION. VENT SETTINGS INCREASED PREVIOUSLY CHARTED. PALLIATIVE NOTIFIED CAREGIVER OF PATIENT'S STATUS AND DECISION WAS MADE TO WITHDRAW CARE. PATIENT EXTUBATED TO 2L 02 VIA NC AT 1445. MORPHINE IV AND PO GIVEN FOR COMFORT. CAREGIVER REMAINS TO BEDSIDE. WILL ADDRESS COMFORT NEEDS AND REPORT TO ONCOMING RN.
--- NOTE | 2022-01-10 19:05 | NUR ---
CAREGIVER/FRIEND, ROMINA IS AT BEDSIDE. SHE IS TEARFUL/APPROPRIATE. NO NEEDS AT THIS TIME.
--- NOTE | 2022-01-10 22:00 | NUR ---
DISCUSSED POC WITH CAREGIVER, ROMINA, AND SHE WILL BE GOING BACK TO THE [facility] FOR INCURABLES. WISHES TO BE CALLED IF ANY CHANGE IN PT STATUS.
--- NOTE | 2022-01-11 05:59 | NUR ---
PT CONTINUES ON COMFORT CARE. SHE IS MEDICATED NEEDED FOR PAIN/ANXIETY/DYSPNEA. SHE CONTINUES TO HAVE WET COUGH DESPITE SCOPALMINE, ORAL SX NEEDED. CAREGIVER, ROMINA, WILL BE UPDATED FOR ANY SIGNIFICANT CHANGE OR DECLINE. WILL CONTINUE TO MONITOR AND REPORT TO ONCOMING SHIFT.
--- NOTE | 2022-01-11 07:30 | NUR ---
ASSUMPTION OF CARE RECEIVED REPORT FROM ROMINA ARZOLA. ASSUMED CARE OF PATIENT. PATIENT IN BED, SUPINE, NO S/S OF DITRESS. WILL MONITOR AND PROVIDE COMFORT NEEDED.
--- NOTE | 2022-01-11 08:01 | NUR ---
ASSESSMENT PT IS NONRESPONSIVE, EYES CLOSED. NO SIGNS OF SYMTPOMS OF DISTRESS. WILL CONTINUE TO MONITOR AND PROVIDE COMFORT NEEDED
--- NOTE | 2022-01-11 11:57 | NUR ---
DISCHARGE PATIENT WITHOUT HEART RATE OR RESPIRATIONS AT 1047. NOTIFIED PHYSICIANS AND CAREGIVER. [facility] RECEIVED PATIENT AT THIS TIME. [facility] FOUND AND CALLED CAREGIVER ROMINA TO RETREIVE WHEN ABLE.
== END 2022-01-11 10:47 | DRG 870 ==
LOC: ER 14:21 → ERHOLD 18:27 → ICUE 18:27 → PCU 18:27 → ICUE 12-13 22:50
PROVIDERS: Emergency Medicine; Family Medicine; Internal Medicine; Internal Medicine Critical Care Medicine; ADMIT Internal Medicine
PROC: 8E0ZXY6 Isolation (ICD-10-PCS; principal; 2021-12-08)
PROC: 3E0333Z Introduction of Anti-inflammatory into Peripheral Vein, Percutaneous Approach (ICD-10-PCS; 2021-12-09)
PROC: XW0DXM6 Introduction of Baricitinib into Mouth and Pharynx, External Approach, New Technology Group 6 (ICD-10-PCS; 2021-12-09)
PROC: XW033E5 Introduction of Remdesivir Anti-infective into Peripheral Vein, Percutaneous Approach, New Technology Group 5 (ICD-10-PCS; 2021-12-09)
PROC: 3E0DX3Z Introduction of Anti-inflammatory into Mouth and Pharynx, External Approach (ICD-10-PCS; 2021-12-09)
PROC: 5A0955A Assistance with Respiratory Ventilation, Greater than 96 Consecutive Hours, High Flow/Velocity Cannula (ICD-10-PCS; 2021-12-14)
PROC: 5A09557 Assistance with Respiratory Ventilation, Greater than 96 Consecutive Hours, Continuous Positive Airway Pressure (ICD-10-PCS; 2021-12-14)
PROC: 0BH18EZ Insertion of Endotracheal Airway into Trachea, Via Natural or Artificial Opening Endoscopic (ICD-10-PCS; 2021-12-17)
PROC: 3E043XZ Introduction of Vasopressor into Central Vein, Percutaneous Approach (ICD-10-PCS; 2021-12-17)
PROC: 5A1955Z Respiratory Ventilation, Greater than 96 Consecutive Hours (ICD-10-PCS; 2021-12-17)
PROC: 02HV33Z Insertion of Infusion Device into Superior Vena Cava, Percutaneous Approach (ICD-10-PCS; 2021-12-17)
DX: A41.89 Other specified sepsis (principal); U07.1 COVID-19; J12.82 Pneumonia due to coronavirus disease 2019; J80 Acute respiratory distress syndrome; N39.0 Urinary tract infection, site not specified; N17.9 Acute kidney failure, unspecified; F20.0 Paranoid schizophrenia; E87.0 Hyperosmolality and hypernatremia; Z66 Do not resuscitate; Z51.5 Encounter for palliative care; R65.20 Severe sepsis without septic shock; N18.30 Chronic kidney disease, stage 3 unspecified; E11.22 Type 2 diabetes mellitus with diabetic chronic kidney disease; F32.A Depression, unspecified; D63.1 Anemia in chronic kidney disease; E66.9 Obesity, unspecified; E87.6 Hypokalemia; M19.90 Unspecified osteoarthritis, unspecified site; R74.01 Elevation of levels of liver transaminase levels; I12.9 Hypertensive chronic kidney disease with stage 1 through stage 4 chronic kidney disease, or unspecified chronic kidney disease; Z53.29 Procedure and treatment not carried out because of patient's decision for other reasons; E03.9 Hypothyroidism, unspecified; B96.20 Unspecified Escherichia coli [E. coli] as the cause of diseases classified elsewhere; Z85.3 Personal history of malignant neoplasm of breast; Z86.14 Personal history of Methicillin resistant Staphylococcus aureus infection; Z98.51 Tubal ligation status; Z90.49 Acquired absence of other specified parts of digestive tract; Z90.13 Acquired absence of bilateral breasts and nipples; Z98.890 Other specified postprocedural states; Z87.891 Personal history of nicotine dependence; Z88.8 Allergy status to other drugs, medicaments and biological substances; Z79.82 Long term (current) use of aspirin; Z79.899 Other long term (current) drug therapy
CPT/HCPCS: 0241U; 31500; 36415; 36569; 36600; 51703; 71045; 71260; 80048; 80053; 80069; 80076; 81001; 82803; 82947; 83605; 83735; 84100; 84132; 84145; 84478; 84484; 85014; 85018; 85025; 85027; 85379; 86140; 86141; 87040; 87070; 87077; 87086; 87186; 87205; 93005; 93010; 94002; 94003; 94640; 94660; 94762; 96374; 99285-25; A9270; C1751; C9113; C9399; J0248; J0295; J0360; J0696; J1100; J1170; J1650; J1815; J1940; J2001; J2060; J2270; J2704; J2920; J3010; J3475; J3480; J7030; J7040; J7050; J7060; J7120; Q9967